=== PATIENT | female | born 1965 | race Two or more races ===

== ENCOUNTER 2021-01-14 17:05 | Inpatient (IN) | payer BC, SELFPAY ==
--- NOTE | ~2021-01-14 | US_ITS ---
EXAMINATION: US PELVIS, LIMITED CLINICAL INFORMATION: Evaluate pelvic swelling/cellulitis. COMPARISON: CT pelvis 01/14/2021. TECHNIQUE: Real-time sonography performed of the right labial region FINDINGS: Significant swelling is seen in the right labia with a masslike region measuring 2.8 x 2.6 x 2.7 cm. Some complex fluid is developing within this area of swelling without a well-circumscribed collection at this time. Increased color Doppler flow is seen within the inflamed soft tissues. US/US pelvic limited IMPRESSION: Swelling with masslike region in the right labia. There is likely a early developing abscess collection within this region. A well-circumscribed collection is not demonstrated at this time.
--- NOTE | ~2021-01-14 | CT_ITS ---
EXAMINATION: CT PELVIS WITH CONTRAST CLINICAL INFORMATION: Abscess over mons. Evaluate for extent COMPARISON: None TECHNIQUE: Helical scanning was performed with submillimeter collimation through the pelvis with the use of oral contrast and during bolus intravenous injection of 100 mL of Omnipaque 350 intravenous contrast. Sagittal and coronal multiplanar 2-D reconstructions were obtained. This CT examination was performed using dose optimization techniques as appropriate, variously including the following: *Automated exposure control *Adjustment of mA and/or kV according to patient size (this includes techniques or standardized protocols for targeted exams where dose is matched to indication/reason for exam; i.e. extremities or head) *Use of iterative reconstruction technique DLP: 376 mGy-cm FINDINGS: PELVIS: There is no intra-pelvic mass. The anteroverted uterus is unremarkable with normal appearance to the bilateral adnexa. Bladder is also unremarkable. There are prominent bilateral left greater than right external iliac nodes seen measuring up to 1.3 cm on the left with prominent left greater than right inguinal lymph nodes as well. Main finding of note is significant soft tissue swelling and overlying skin thickening in the region of the right mons. Milder skin thickening is seen in the adjacent left skin surface although the epicenter this is in the right mons/periclitoral region. I do not appreciate any soft tissue gas. The central lower attenuation region measures 4.4 x 3.1 cm in size in the axial images. This appears be more phlegmonous in nature rather than a discrete drainable collection. There is ill-defined margin and stranding in the adjacent soft tissues. OSSEOUS STRUCTURES: No acute bony abnormality. CT/CT pelvis w IV con IMPRESSION: Focal decreased attenuation region in the soft tissues of the right mons/periclitoral region likely representing phlegmon/early abscess. I do not appreciate it discrete drainable collection within this area of focal inflammation suggesting this is more phlegmonous in nature although clinical correlation would be helpful. There is overlying skin thickening and reactive changes in the adjacent fat likely representing secondary inflammatory and reactive changes. Clinical correlation recommended.
[2021-01-14 17:09] VITALS: BP 143/68; PULSE 125; RESP 18; TEMP 37.9; O2SAT 97; BMI 34.7
[2021-01-14] MEDS: Acetaminophen 325 MG TABLET 650 MG PO (17:15)
[2021-01-14 19:39] VITALS: BP 154/67; PULSE 125; RESP 16; TEMP 36.7
--- NOTE | 2021-01-14 19:56 | ED_ITS ---
HPI - Skin/Abscess/Foreign Bdy General Chief complaint: Skin/Abscess/Foreign Body <FAUSTO Abrams Last Filed: 01/14/21 21:34> Stated complaint: cyst <Elizabeth Landry NP - Last Filed: 01/14/21 21:34> Time Seen by Provider: 01/14/21 19:36 <Elizabeth Landry NP - Last Filed: 01/14/21 21:34> Source: patient <FAUSTO Abrams Last Filed: 01/14/21 21:34> Mode of arrival: ambulatory <FAUSTO Abrams Last Filed: 01/14/21 21:34> Limitations: no limitations <FAUSTO Abrams Last Filed: 01/14/21 21:34> History of Present Illness HPI narrative: 55-year-old female with swelling to the right groin x3 days. No fevers or chills. Blood sugars have been running well controlled. No other complaints <FAUSTO Abrams Last Filed: 01/14/21 21:34> Related Data Home medications: Home Medications Medication Instructions Recorded Confirmed atorvastatin 1 tab PO BEDTIME 01/14/21 01/14/21 glipizide 1 tab PO BID 01/14/21 01/14/21 metformin 1 tab PO DAILY@1400 01/14/21 01/14/21 <FAUSTO Abrams Last Filed: 01/14/21 21:34> Allergies/Adverse reactions: Allergies Allergy/AdvReac Type Severity Reaction Status Date / Time seafood Allergy Shakiness Verified 01/14/21 19:47 <FAUSTO Abrams Last Filed: 01/14/21 21:34> Review of Systems Review of Systems: Yes all other systems are reviewed and are negative <FAUSTO Abrams Last Filed: 01/14/21 21:34> Constitutional: Constitutional: Reports no additional constitutional complaints, Denies body ache(s), Denies chills, Denies fever(s), Denies headache(s) and Denies weakness <FAUSTO Abrams Last Filed: 01/14/21 21:34> Eyes: Eyes: Reports no additional eye complaints and Denies change in vision <Elizabeth Landry NP - Last Filed: 01/14/21 21:34> ENT: Reports system reviewed and no additional complaints, except as documented, Denies dizziness, Denies headache(s), Denies nasal congestion, Denies nasal discharge and Denies neck pain <Elizabeth Landry NP - Last Filed: 01/14/21 21:34> Cardiovascular: Cardiovascular: Reports no additional cardiovascular complaints, Denies chest pain, Denies leg edema and Denies dyspnea <Elizabeth Landry NP - Last Filed: 01/14/21 21:34> Respiratory: Respiratory: Reports no additional respiratory complaints, Denies cough and Denies dyspnea <Elizabeth Landry NP - Last Filed: 01/14/21 21:34> Gastrointestinal: Gastrointestinal: Reports no additional gastrointestinal complaints, Denies abdominal pain, Denies diarrhea, Denies nausea and Denies vomiting <Elizabeth Landry NP - Last Filed: 01/14/21 21:34> Genitourinary: Genitourinary: Reports no additional female genitourinary co mplaints and Denies urinary incontinence <Elizabeth Landry NP - Last Filed: 01/14/21 21:34> Musculoskeletal: Musculoskeletal: Reports no additional musculoskeletal complaints, Denies back pain, Denies arthralgias, Denies joint swelling, Denies neck pain, Denies numbness and Denies tingling <Elizabeth Landry NP - Last Filed: 01/14/21 21:34> Integumentary/Breasts: Skin/Breast: Reports system reviewed and no additional complaints, except as docu, Reports swelling, Reports erythema and Denies rash <Elizabeth Landry NP - Last Filed: 01/14/21 21:34> Neurologic: Reports system reviewed and no additional complaints, except as documented, Denies Abnormal speech present, Denies dizziness, Denies he adache(s), Denies numbness, Denies tingling and Denies weakness <Elizabeth Landry NP - Last Filed: 01/14/21 21:34> PMFSH Past Medical History Attestation statement: The following information was validated with the patient. <Elizabeth Landry NP - Last Filed: 01/14/21 21:34> Source: old records reviewed and nursing notes reviewed <Elizabeth Landry NP - Last Filed: 01/14/21 21:34> Medical History: Medical History Diabetes <Elizabeth Landry NP - Last Filed: 01/14/21 21:34> Social History Social History: Social History Advance Directives: No Advance Directives Information Provided: Yes <Elizabeth Landry NP - Last Filed: 01/14/21 21:34> Physical Exam Vital Signs: Vital Signs: Last Vital Signs Temp 98.2 F 01/14/21 21:54 Pulse 94 01/14/21 21:54 Resp 16 01/14/21 21:54 BP 116/66 01/14/21 21:54 Pulse Ox 97 01/14/21 21:54 Body Mass Index 34.7 <Elizabeth Landry NP - Last Filed: 01/14/21 21:34> Vital Signs: Last Vital Signs Temp 98.2 F 01/14/21 21:54 Pulse 94 01/14/21 21:54 Resp 16 01/14/21 21:54 BP 116/66 01/14/21 21:54 Pulse Ox 97 01/14/21 21:54 Body Mass Index 34.7 <Macarena Urias MD - Last Filed: 01/14/21 23:00> Const: General: cooperative, healthy appearing, comfortable and no acute distress <Elizabeth Landry NP - Last Filed: 01/14/21 21:34> Orientation/consciousness: patient oriented x3 <Elizabeth Landry NP - Last Filed: 01/14/21 21:34> Limitations: no limitations <Elizabeth Landry NP - Last Filed: 01/14/21 21:34> HENMT: Head: Yes normal to inspection <Elizabeth Landry NP - Last Filed: 01/14/21 21:34> Ears: hearing grossly normal bilaterally <Elizabeth Landry MANAGER STATISTICS - Last Filed: 01/14/21 21:34> General nose exam: Normal external nose present <Elizabeth Landry NP - Last Filed: 01/14/21 21:34> Face and sinus: Yes normal facial exam <Elizabeth Landry MANAGER STATISTICS - Last Filed: 01/14/21 21:34> Mouth: Normal oral and palatal mucosa present <Elizabeth Landry MANAGER STATISTICS - Last Filed: 01/14/21 21:34> Throat: Yes posterior oropharynx normal <Elizabeth Landry MANAGER STATISTICS - Last Filed: 01/14/21 21:34> Eyes: General: appearance normal, both eyes and all related structures <Elizabeth Landry MANAGER STATISTICS - Last Filed: 01/14/21 21:34> Pupils: Equal, round and reactive pupils present <Elizabeth Landry NP - Last Filed: 01/14/21 21:34> Neck: Neck: Yes normal visual inspection <Elizabeth Landry MANAGER STATISTICS - Last Filed: 01/14/21 21:34> Chest: Chest palpation & inspection: normal inspection of the chest <Elizabeth Landry NP - Last Filed: 01/14/21 21:34> Resp: Effort & Inspection: normal respiratory effort <Elizabeth Landry MANAGER STATISTICS - Last Filed: 01/14/21 21:34> Auscultation: clear to auscultation bilaterally <Elizabeth Landry MANAGER STATISTICS - Last Filed: 01/14/21 21:34> Cardio: Rate: tachycardic <Elizabeth Landry MANAGER STATISTICS - Last Filed: 01/14/21 21:34> Rhythm: regular rhythm <Elizabeth Landry MANAGER STATISTICS - Last Filed: 01/14/21 21:34> Peripheral pulses: Peripheral pulses 2+ throughout <Elizabeth Landry MANAGER STATISTICS - Last Filed: 01/14/21 21:34> GI: Inspection: Yes normal to inspection <Elizabeth Landry NP - Last Filed: 01/14/21 21:34> Palpation (GI): Soft to palpation and nontender <Elizabeth Landry NP - Last Filed: 01/14/21 21:34> Auscultation: normal bowel sounds <Elizabeth Landry NP - Last Filed: 01/14/21 21:34> Back/Spine/Pelvis: Thoracic/Lumbar Spine: thoracic and lumbar spine normal to inspection <Elizabeth Landry NP - Last Filed: 01/14/21 21:34> Skin: Other: No abdominal pain superior to the site, no thigh pain. No perineal pain/erythema or swelling Above area is erythema, tender and fluctuant <Elizabeth Landry NP - Last Fi led: 01/14/21 21:34> General skin exam: no rashes or lesions noted <Elizabeth Landry NP - Last Filed: 01/14/21 21:34> Neuro: General: patient oriented x3, no focal motor deficits and normal sensation to monofilament <Elizabeth Landry NP - Last Filed: 01/14/21 21:34> Cranial nerves: Yes Equal, round and reactive pupils present <Elizabeth Landry NP - Last Filed: 01/14/21 21:34> Cognition (Neuro): normal cognition <Elizabeth Landry NP - Last Filed: 01/14/21 21:34> Speech: No Abnormal speech present <Elizabeth Landry NP - Last Filed: 01/14/21 21:34> Gait exam (Neuro): Normal gait present <Elizabeth Landry NP - Last Filed: 01/14/21 21:34> Motor exam (neuro): 5/5 motor strength present throughout <Elizabeth Landry NP - Last Filed: 01/14/21 21:34> Extrem: General: Yes normal to inspection <Elizabeth Landry NP - Last Filed: 01/14/21 21:34> Course Course Course Narrative: 55-year-old female with a history of diabetes here with abscess to the right mons pubis which is quite large, fluctuant and tender. Difficult to determine extent of the abscess and so CT A/P will be checked in addition to labs, blood cultures and lactic acid. At this time infection is suspected. Antibiotics ordered. 2100-Glucose 419 with no acidosis or gap. Patient is only on oral medications for her diabetes. Acetone ordered. Additional 1 L of fluid ordered. 5 units of IV insulin ordered. Nursing to recheck POC post fluids, insulin. 213-sign at Dr. Urias pending repeat POC, CT A/P. <Elizabeth Landry NP - Last Filed: 01/14/21 21:34> I discussed the CT scan with the patient. Patient will be admitted by the medicine team. At this time, there is no drainable abscess. Patient already received 1 dose of Zosyn. <Macarena Urias MD - Last Filed: 01/14/21 23:00> MDM - Skin/Abscess/Foreign Bdy Medical Records Attestation: I reviewed the patient's medical records. <Elizabeth Landry NP - Last Filed: 01/14/21 21:34> Lab Data Attestation: I reviewed the patient's lab results. <Elizabeth Landry NP - Last Filed: 01/14/21 21:34> Result diagrams: : 01/14/21 20:11 01/14/21 20:11 <Elizabeth Landry NP - Last Filed: 01/14/21 21:34> Labs: Lab Results 01/14/21 01/14/21 01/14/21 Range/Units 20:09 20:11 20:11 WBC 14.3 H (4.8-10.8) X10*3/uL RBC 4.65 (4.20-5.50) X10*6/uL Hgb 13.1 (12.0-16.0) g/dl Hct 40.2 (37-47) % MCV 86.5 (80-98) fL MCH 28.2 (27.0-33.0) pg MCHC 32.6 (31.0-35.0) g/dl RDW 12.6 (11.0-16.0) % Plt Count 248 (160-400) X10*3/uL MPV 11.5 (9.4-12.3) fL Immature Gran % (Auto) 0.4 (0.0-0.4) % Neut % (Auto) 69.6 (45-73) % Lymph % (Auto) 23.6 (20-40) % Lucas % (Auto) 5.5 (2-11) % Eos % (Auto) 0.6 (0-4) % Baso % (Auto) 0.3 (0-2) % Lymph # (Auto) 3.4 (1.2-4.9) X10*3/uL Lucas # (Auto) 0.8 (0.1-1.2) X10*3/uL Eos # (Auto) 0.1 (0.0-0.4) X10*3/uL Baso # (Auto) 0.0 (0.0-0.2) X10*3/uL Abs Immat Gran (auto) 0.06 H (0.00-0.03) X10*3/uL Absolute Neuts (auto) 10.0 H (2.0-8.3) X10*3/uL Absolute Nucleated RBC 0.000 (0.0-0.012) X10*3/uL Nucleated RBC % (auto) 0.0 (0.0-0.2) /100WBC Hold Blue Top SEE NOTE Sodium (135-145) mmol/L Potassium (3.3-5.1) mmol/L Chloride (96-108) mmol/L Carbon Dioxide (22-29) mmol/L Anion Gap (12-20) BUN (9-16) mg/dL Creatinine (0.5-1.4) mg/dL Estim Creat Clear Calc Estimated GFR POC Glucose (60-115) mg/dL Random Glucose (60-115) mg/dL Lactic Acid 1.3 (0.5-2.0) mmol/L Calcium (8.4-10.2) mg/dL Total Bilirubin (0.0-1.0) mg/dL Direct Bilirubin (0.0-0.5) mg/dL AST (5-31) U/L ALT (0-31) U/L Alkaline Phosphatase (39-117) U/L Total Protein (6.5-8.0) g/dL Albumin (3.5-5.0) g/dL Urine Color Urine Appearance Urine pH (5.0-8.0) Ur Specific Penn (1.005-1.025) Urine Protein (NEG-TRACE) MG/DL Urine Glucose (UA) (NEG) MG/DL Urine Ketones (NEG) MG/DL Urine Blood (NEG) Urine Nitrite (NEG) Ur Leukocyte Esterase (NEG) Urine RBC (0) /HPF Urine WBC (0-4) /HPF Ur Squamous Epith Cells /LPF Urine Bacteria /LPF Acetone, Qual (Negative) COVID-19 ([facility]) (Negative) COVID-19 Clin Com 01/14/21 01/14/21 01/14/21 Range/Units 20:11 21:04 21:23 WBC (4.8-10.8) X10*3/uL RBC (4.20-5.50) X10*6/uL Hgb (12.0-16.0) g/dl Hct (37-47) % MCV (80-98) fL MCH (27.0-33.0) pg MCHC (31.0-35.0) g/dl RDW (11.0-16.0) % Plt Count (160-400) X10*3/uL MPV (9.4-12.3) fL Immature Gran % (Auto) (0.0-0.4) % Neut % (Auto) (45-73) % Lymph % (Auto) (20-40) % Lucas % (Auto) (2-11) % Eos % (Auto) (0-4) % Baso % (Auto) (0-2) % Lymph # (Auto) (1.2-4.9) X10*3/uL Lucas # (Auto) (0.1-1.2) X10*3/uL Eos # (Auto) (0.0-0.4) X10*3/uL Baso # (Auto) (0.0-0.2) X10*3/uL Abs Immat Gran (auto) (0.00-0.03) X10*3/uL Absolute Neuts (auto) (2.0-8.3) X10*3/uL Absolute Nucleated RBC (0.0-0.012) X10*3/uL Nucleated RBC % (auto) (0.0-0.2) /100WBC Hold Blue Top Sodium 133 L (135-145) mmol/L Potassium 4.0 (3.3-5.1) mmol/L Chloride 97 (96-108) mmol/L Carbon Dioxide 26 (22-29) mmol/L Anion Gap 14 (12-20) BUN 12 (9-16) mg/dL Creatinine 0.88 (0.5-1.4) mg/dL Estim Creat Clear Calc 73.5 Estimated GFR > 60 POC Glucose (60-115) mg/dL Random Glucose 419 H* (60-115) mg/dL Lactic Acid (0.5-2.0) mmol/L Calcium 9.2 (8.4-10.2) mg/dL Total Bilirubin 0.3 (0.0-1.0) mg/dL Direct Bilirubin 0.2 (0.0-0.5) mg/dL AST 96 H (5-31) U/L ALT 104 H (0-31) U/L Alkaline Phosphatase 156 H (39-117) U/L Total Protein 7.2 (6.5-8.0) g/dL Albumin 4.1 (3.5-5.0) g/dL Urine Color YELLOW Urine Appearance CLEAR Urine pH 6.0 (5.0-8.0) Ur Specific Penn 1.015 (1.005-1.025) Urine Protein NEG (NEG-TRACE) MG/DL Urine Glucose (UA) >=1000 H (NEG) MG/DL Urine Ketones 5 (NEG) MG/DL Urine Blood NEG (NEG) Urine Nitrite NEG (NEG) Ur Leukocyte Esterase NEG (NEG) Urine RBC 1-4 (0) /HPF Urine WBC 1-4 (0-4) /HPF Ur Squamous Epith Cells 1+ /LPF Urine Bacteria 1+ /LPF Acetone, Qual Negative (Negative) COVID-19 ([facility]) (Negative) COVID-19 Clin Com 01/14/21 01/14/21 Range/Units 21:23 22:42 WBC (4.8-10.8) X10*3/uL RBC (4.20-5.50) X10*6/uL Hgb (12.0-16.0) g/dl Hct (37-47) % MCV (80-98) fL MCH (27.0-33.0) pg MCHC (31.0-35.0) g/dl RDW (11.0-16.0) % Plt Count (160-400) X10*3/uL MPV (9.4-12.3) fL Immature Gran % (Auto) (0.0-0.4) % Neut % (Auto) (45-73) % Lymph % (Auto) (20-40) % Lucas % (Auto) (2-11) % Eos % (Auto) (0-4) % Baso % (Auto) (0-2) % Lymph # (Auto) (1.2-4.9) X10*3/uL Lucas # (Auto) (0.1-1.2) X10*3/uL Eos # (Auto) (0.0-0.4) X10*3/uL Baso # (Auto) (0.0-0.2) X10*3/uL Abs Immat Gran (auto) (0.00-0.03) X10*3/uL Absolute Neuts (auto) (2.0-8.3) X10*3/uL Absolute Nucleated RBC (0.0-0.012) X10*3/uL Nucleated RBC % (auto) (0.0-0.2) /100WBC Hold Blue Top Sodium (135-145) mmol/L Potassium (3.3-5.1) mmol/L Chloride (96-108) mmol/L Carbon Dioxide (22-29) mmol/L Anion Gap (12-20) BUN (9-16) mg/dL Creatinine (0.5-1.4) mg/dL Estim Creat Clear Calc Estimated GFR POC Glucose 217 H (60-115) mg/dL Random Glucose (60-115) mg/dL Lactic Acid (0.5-2.0) mmol/L Calcium (8.4-10.2) mg/dL Total Bilirubin (0.0-1.0) mg/dL Direct Bilirubin (0.0-0.5) mg/dL AST (5-31) U/L ALT (0-31) U/L Alkaline Phosphatase (39-117) U/L Total Protein (6.5-8.0) g/dL Albumin (3.5-5.0) g/dL Urine Color Urine Appearance Urine pH (5.0-8.0) Ur Specific Penn (1.005-1.025) Urine Protein (NEG-TRACE) MG/DL Urine Glucose (UA) (NEG) MG/DL Urine Ketones (NEG) MG/DL Urine Blood (NEG) Urine Nitrite (NEG) Ur Leukocyte Esterase (NEG) Urine RBC (0) /HPF Urine WBC (0-4) /HPF Ur Squamous Epith Cells /LPF Urine Bacteria /LPF Acetone, Qual (Negative) COVID-19 ([facility]) Negative (Negative) COVID-19 Clin Com See Note <Elizabeth Frantz, MANAGER STATISTICS - Last Filed: 01/14/21 21:34> Lab Results 01/14/21 01/14/21 01/14/21 Range/Units 20:09 20:11 20:11 WBC 14.3 H (4.8-10.8) X10*3/uL RBC 4.65 (4.20-5.50) X10*6/uL Hgb 13.1 (12.0-16.0) g/dl Hct 40.2 (37-47) % MCV 86.5 (80-98) fL MCH 28.2 (27.0-33.0) pg MCHC 32.6 (31.0-35.0) g/dl RDW 12.6 (11.0-16.0) % Plt Count 248 (160-400) X10*3/uL MPV 11.5 (9.4-12.3) fL Immature Gran % (Auto) 0.4 (0.0-0.4) % Neut % (Auto) 69.6 (45-73) % Lymph % (Auto) 23.6 (20-40) % Lucas % (Auto) 5.5 (2-11) % Eos % (Auto) 0.6 (0-4) % Baso % (Auto) 0.3 (0-2) % Lymph # (Auto) 3.4 (1.2-4.9) X10*3/uL Lucas # (Auto) 0.8 (0.1-1.2) X10*3/uL Eos # (Auto) 0.1 (0.0-0.4) X10*3/uL Baso # (Auto) 0.0 (0.0-0.2) X10*3/uL Abs Immat Gran (auto) 0.06 H (0.00-0.03) X10*3/uL Absolute Neuts (auto) 10.0 H (2.0-8.3) X10*3/uL Absolute Nucleated RBC 0.000 (0.0-0.012) X10*3/uL Nucleated RBC % (auto) 0.0 (0.0-0.2) /100WBC Hold Blue Top SEE NOTE Sodium (135-145) mmol/L Potassium (3.3-5.1) mmol/L Chloride (96-108) mmol/L Carbon Dioxide (22-29) mmol/L Anion Gap (12-20) BUN (9-16) mg/dL Creatinine (0.5-1.4) mg/dL Estim Creat Clear Calc Estimated GFR POC Glucose (60-115) mg/dL Random Glucose (60-115) mg/dL Lactic Acid 1.3 (0.5-2.0) mmol/L Calcium (8.4-10.2) mg/dL Total Bilirubin (0.0-1.0) mg/dL Direct Bilirubin (0.0-0.5) mg/dL AST (5-31) U/L ALT (0-31) U/L Alkaline Phosphatase (39-117) U/L Total Protein (6.5-8.0) g/dL Albumin (3.5-5.0) g/dL Urine Color Urine Appearance Urine pH (5.0-8.0) Ur Specific Penn (1.005-1.025) Urine Protein (NEG-TRACE) MG/DL Urine Glucose (UA) (NEG) MG/DL Urine Ketones (NEG) MG/DL Urine Blood (NEG) Urine Nitrite (NEG) Ur Leukocyte Esterase (NEG) Urine RBC (0) /HPF Urine WBC (0-4) /HPF Ur Squamous Epith Cells /LPF Urine Bacteria /LPF Acetone, Qual (Negative) COVID-19 ([facility]) (Negative) COVID-19 Clin Com 01/14/21 01/14/21 01/14/21 Range/Units 20:11 21:04 21:23 WBC (4.8-10.8) X10*3/uL RBC (4.20-5.50) X10*6/uL Hgb (12.0-16.0) g/dl Hct (37-47) % MCV (80-98) fL MCH (27.0-33.0) pg MCHC (31.0-35.0) g/dl RDW (11.0-16.0) % Plt Count (160-400) X10*3/uL MPV (9.4-12.3) fL Immature Gran % (Auto) (0.0-0.4) % Neut % (Auto) (45-73) % Lymph % (Auto) (20-40) % Lucas % (Auto) (2-11) % Eos % (Auto) (0-4) % Baso % (Auto) (0-2) % Lymph # (Auto) (1.2-4.9) X10*3/uL Lucas # (Auto) (0.1-1.2) X10*3/uL Eos # (Auto) (0.0-0.4) X10*3/uL Baso # (Auto) (0.0-0.2) X10*3/uL Abs Immat Gran (auto) (0.00-0.03) X10*3/uL Absolute Neuts (auto) (2.0-8.3) X10*3/uL Absolute Nucleated RBC (0.0-0.012) X10*3/uL Nucleated RBC % (auto) (0.0-0.2) /100WBC Hold Blue Top Sodium 133 L (135-145) mmol/L Potassium 4.0 (3.3-5.1) mmol/L Chloride 97 (96-108) mmol/L Carbon Dioxide 26 (22-29) mmol/L Anion Gap 14 (12-20) BUN 12 (9-16) mg/dL Creatinine 0.88 (0.5-1.4) mg/dL Estim Creat Clear Calc 73.5 Estimated GFR > 60 POC Glucose (60-115) mg/dL Random Glucose 419 H* (60-115) mg/dL Lactic Acid (0.5-2.0) mmol/L Calcium 9.2 (8.4-10.2) mg/dL Total Bilirubin 0.3 (0.0-1.0) mg/dL Direct Bilirubin 0.2 (0.0-0.5) mg/dL AST 96 H (5-31) U/L ALT 104 H (0-31) U/L Alkaline Phosphatase 156 H (39-117) U/L Total Protein 7.2 (6.5-8.0) g/dL Albumin 4.1 (3.5-5.0) g/dL Urine Color YELLOW Urine Appearance CLEAR Urine pH 6.0 (5.0-8.0) Ur Specific Penn 1.015 (1.005-1.025) Urine Protein NEG (NEG-TRACE) MG/DL Urine Glucose (UA) >=1000 H (NEG) MG/DL Urine Ketones 5 (NEG) MG/DL Urine Blood NEG (NEG) Urine Nitrite NEG (NEG) Ur Leukocyte Esterase NEG (NEG) Urine RBC 1-4 (0) /HPF Urine WBC 1-4 (0-4) /HPF Ur Squamous Epith Cells 1+ /LPF Urine Bacteria 1+ /LPF Acetone, Qual Negative (Negative) COVID-19 ([facility]) (Negative) COVID-19 Clin Com 01/14/21 01/14/21 Range/Units 21:23 22:42 WBC (4.8-10.8) X10*3/uL RBC (4.20-5.50) X10*6/uL Hgb (12.0-16.0) g/dl Hct (37-47) % MCV (80-98) fL MCH (27.0-33.0) pg MCHC (31.0-35.0) g/dl RDW (11.0-16.0) % Plt Count (160-400) X10*3/uL MPV (9.4-12.3) fL Immature Gran % (Auto) (0.0-0.4) % Neut % (Auto) (45-73) % Lymph % (Auto) (20-40) % Lucas % (Auto) (2-11) % Eos % (Auto) (0-4) % Baso % (Auto) (0-2) % Lymph # (Auto) (1.2-4.9) X10*3/uL Lucas # (Auto) (0.1-1.2) X10*3/uL Eos # (Auto) (0.0-0.4) X10*3/uL Baso # (Auto) (0.0-0.2) X10*3/uL Abs Immat Gran (auto) (0.00-0.03) X10*3/uL Absolute Neuts (auto) (2.0-8.3) X10*3/uL Absolute Nucleated RBC (0.0-0.012) X10*3/uL Nucleated RBC % (auto) (0.0-0.2) /100WBC Hold Blue Top Sodium (135-145) mmol/L Potassium (3.3-5.1) mmol/L Chloride (96-108) mmol/L Carbon Dioxide (22-29) mmol/L Anion Gap (12-20) BUN (9-16) mg/dL Creatinine (0.5-1.4) mg/dL Estim Creat Clear Calc Estimated GFR POC Glucose 217 H (60-115) mg/dL Random Glucose (60-115) mg/dL Lactic Acid (0.5-2.0) mmol/L Calcium (8.4-10.2) mg/dL Total Bilirubin (0.0-1.0) mg/dL Direct Bilirubin (0.0-0.5) mg/dL AST (5-31) U/L ALT (0-31) U/L Alkaline Phosphatase (39-117) U/L Total Protein (6.5-8.0) g/dL Albumin (3.5-5.0) g/dL Urine Color Urine Appearance Urine pH (5.0-8.0) Ur Specific [place] (1.005-1.025) Urine Protein (NEG-TRACE) MG/DL Urine Glucose (UA) (NEG) MG/DL Urine Ketones (NEG) MG/DL Urine Blood (NEG) Urine Nitrite (NEG) Ur Leukocyte Esterase (NEG) Urine RBC (0) /HPF Urine WBC (0-4) /HPF Ur Squamous Epith Cells /LPF Urine Bacteria /LPF Acetone, Qual (Negative) COVID-19 ([facility]) Negative (Negative) COVID-19 Clin Com See Note <Macarena Urias MD - Last Filed: 01/14/21 23:00> Imaging Data CT of the pelvis: Radiologist's impression: FINDINGS: PELVIS: There is no intra-pelvic mass. The anteroverted uterus is unremarkable with normal appearance to the bilateral adnexa. Bladder is also unremarkable. There are prominent bilateral left greater than right external iliac nodes seen measuring up to 1.3 cm on the left with prominent left greater than right inguinal lymph nodes as well. Main finding of note is significant soft tissue swelling and overlying skin thickening in the region of the right mons. Milder skin thickening is seen in the adjacent left skin surface although the epicenter this is in the right mons/periclitoral region. I do not appreciate any soft tissue gas. The central lower attenuation region measures 4.4 x 3.1 cm in size in the axial images. This appears be more phlegmonous in nature rather than a discrete drainable collection. There is ill-defined margin and stranding in the adjacent soft tissues. OSSEOUS STRUCTURES: No acute bony abnormality. CT/CT pelvis w con IMPRESSION: Focal decreased attenuation region in the soft tissues of the right mons/periclitoral region likely representing phlegmon/early abscess. I do not appreciate it discrete drainable collection within this area of focal inflammation suggesting this is more phlegmonous in nature although clinical correlation would be helpful. There is overlying skin thickening and reactive changes in the adjacent fat likely representing secondary inflammatory and reactive changes. Clinical correlation recommended. <Macarena Urias MD - Last Filed: 01/14/21 23:00> Discharge Plan Discharge Clinical Impression: Phlegmon <Elizabeth Landry NP - Last Filed: 01/14/21 21:34> Patient Disposition: Admitted As Inpatient <Elizabeth Landry NP - Last Filed: 01/14/21 21:34> Prescriptions: No Action atorvastatin 40 mg tablet 1 tab PO BEDTIME RF: 0 metformin 500 mg tablet 1 tab PO DAILY@1400 RF: 0 glipizide 10 mg tablet 1 tab PO BID RF: 0 <Elizabeth Landry NP - Last Filed: 01/14/21 21:34>
[2021-01-14 20:24] LABS: MANUAL DIFF FLAG NO
[2021-01-14 20:26] LABS: Basophils Percent Auto 0.3 % (0-2); Eosinophils Absolute Auto 0.1 X10*3/uL (0.0-0.4); Eosinophils Percent Auto 0.6 % (0-4); Hematocrit 40.2 % (37-47); Hemoglobin 13.1 g/dl (12.0-16.0); Imm Gran Abs Auto 0.06 X10*3/uL (0.00-0.03); Imm Gran Pct Auto 0.4 % (0.0-0.4); Lymphocytes Absolute Auto 3.4 X10*3/uL (1.2-4.9); Lymphocytes Percent Auto 23.6 % (20-40); Mean Corpuscular HGB Conc 32.6 g/dl (31.0-35.0); Mean Corpuscular Hemoglobin 28.2 pg (27.0-33.0); Mean Corpuscular Volume 86.5 fL (80-98); Mean Platelet Volume 11.5 fL (9.4-12.3); Monocytes Absolute Auto 0.8 X10*3/uL (0.1-1.2); Monocytes Percent Auto 5.5 % (2-11); Neutrophils Percent Auto 69.6 % (45-73); Platelet Count 248 X10*3/uL (160-400); Red Blood Count 4.65 X10*6/uL (4.20-5.50); Red Cell Distribution Width 12.6 % (11.0-16.0); White Blood Count 14.3 X10*3/uL (4.8-10.8)
[2021-01-14] MEDS: Ketorolac Tromethamine 30 MG/ML VIAL IVPUSH (20:26)
[2021-01-14 20:43] LABS: Lactic Acid 1.3 mmol/L (0.5-2.0)
--- NOTE | 2021-01-14 20:49 | PC.NURSE ---
PT STILL HAS UPPER WHEEZE AFTER BREATHING TREATMENT DR RAMÍREZ AWARE OF BS AND ORDERED INSULIN AND IV FLUIDS.
[2021-01-14] MEDS: 0.9 % Sodium Chloride 1,000 ML 999 ML IV ×2 (20:56→23:16)
[2021-01-14] MEDS: Piperacillin Sodium/Tazobactam 3.375 GM in 0.9 % Sodium Chloride 50 ML IV (20:56)
[2021-01-14 21:11] LABS: Alanine Aminotransferase 104 U/L (0-31); Albumin Level 4.1 g/dL (3.5-5.0); Alkaline Phosphatase 156 U/L (39-117); Anion Gap 14 (12-20); Aspartate Amino Transferase 96 U/L (5-31); Bilirubin Direct 0.2 mg/dL (0.0-0.5); Bilirubin Total 0.3 mg/dL (0.0-1.0); Blood Urea Nitrogen 12 mg/dL (9-16); Calcium 9.2 mg/dL (8.4-10.2); Carbon Dioxide 26 mmol/L (22-29); Chloride 97 mmol/L (96-108); Creatinine Clr Calc Pharmacy 73.5; Estimated Glomerular Filt Rate > 60; Glucose Random 419 mg/dL (60-115); Sodium 133 mmol/L (135-145); Total Protein 7.2 g/dL (6.5-8.0)
[2021-01-14 21:14] LABS: Glucose Urine UA >=1000 MG/DL (NEG); Leukocyte Esterase Urine NEG (NEG); Nitrite Urine NEG (NEG); Specific Gravity - Urine 1.015 (1.005-1.025); Urine Blood NEG (NEG); Urine Ketones 5 MG/DL (NEG); Urine Protein NEG (NEG-TRACE)
[2021-01-14 21:22] LABS: Appearance Urine CLEAR; Color Urine YELLOW
[2021-01-14] MEDS: Insulin Regular, Human 100 UNIT/ML 3 ML VIAL IVPUSH (21:27)
[2021-01-14 21:28] LABS: Bacteria Urine 1+ /LPF; Squamous Epithelial Cell Urine 1+ /LPF
[2021-01-14 21:45] LABS: COVID-19 Test Negative (Negative)
[2021-01-14 21:51] LABS: Acetone, serum QL Negative (Negative)
[2021-01-14 21:54] VITALS: BP 116/66; PULSE 94; RESP 16; TEMP 36.8; O2SAT 97
[2021-01-14] MEDS: iohexoL 350 MG/ML 100 ML INFUS..BTL IV (22:21)
[2021-01-14 22:47] LABS: Glucose, Whole Blood 217 mg/dL (60-115)
--- NOTE | 2021-01-14 23:21 | PC.NURSE ---
DR RAMÍREZ AWARE OF BS OF 217. NO ORDER AT THIS TIME.
[2021-01-15] VITALS (8 sets, daily range): BP systolic 106–162; BP diastolic 56–76; PULSE 82–103; RESP 18–20; TEMP 36.1–37.6; O2SAT 96–100
[2021-01-15] MEDS: 0.9 % Sodium Chloride Flush 3 ML SYRINGE IVFLUSH ×3 (03:27→16:42)
[2021-01-15] MEDS: Piperacillin Sodium/Tazobactam 3.375 GM in 0.9 % Sodium Chloride 50 ML IV ×3 (03:27→20:00)
[2021-01-15 04:58] LABS: MANUAL DIFF FLAG NO
[2021-01-15 05:08] LABS: Basophils Absolute Auto 0.1 X10*3/uL (0.0-0.2); Basophils Percent Auto 0.4 % (0-2); Eosinophils Absolute Auto 0.2 X10*3/uL (0.0-0.4); Eosinophils Percent Auto 1.2 % (0-4); Hematocrit 41.6 % (37-47); Hemoglobin 13.3 g/dl (12.0-16.0); Imm Gran Abs Auto 0.05 X10*3/uL (0.00-0.03); Imm Gran Pct Auto 0.4 % (0.0-0.4); Lymphocytes Absolute Auto 3.3 X10*3/uL (1.2-4.9); Mean Corpuscular Hemoglobin 28.3 pg (27.0-33.0); Mean Corpuscular Volume 88.5 fL (80-98); Mean Platelet Volume 11.8 fL (9.4-12.3); Monocytes Percent Auto 7.5 % (2-11); Neutrophils Absolute Auto 9.2 X10*3/uL (2.0-8.3); Neutrophils Percent Auto 66.5 % (45-73); Platelet Count 226 X10*3/uL (160-400); Red Cell Distribution Width 12.5 % (11.0-16.0); White Blood Count 13.8 X10*3/uL (4.8-10.8)
[2021-01-15 05:28] LABS: Anion Gap 16 (12-20); Blood Urea Nitrogen 9 mg/dL (9-16); Calcium 8.4 mg/dL (8.4-10.2); Carbon Dioxide 20 mmol/L (22-29); Chloride 104 mmol/L (96-108); Creatinine Clr Calc Pharmacy 102.8; Estimated Glomerular Filt Rate > 60; Glucose Random 239 mg/dL (60-115); Sodium 136 mmol/L (135-145)
[2021-01-15 07:08] LABS: Glucose, Whole Blood 254 mg/dL (60-115)
--- NOTE | 2021-01-15 08:05 | P.HPHOSP_ITS ---
History of Present Illness Date of Service: 01/14/21 Chief Complaint: Lump this is a 55 yo F with pmhx of DM presents to the hospital with lump on the groin region. reports that she noticed a lump about 1 day prior to presentation but today, suddenyl grew large and had 20/10 pain. No drainage, no fever or chills. No urinary symptoms. she shaves that area and had a similar incident in the past. pt denies any headache, change in vision, no chest pain, no abdominal pain, n/v, no diarrhea or constipation. No lower extremity edema, no weakness or numbness. On arrival, HDS with temp of 100.3, HR of 125, RR of 18, BP of 143/68, and sating 97% of RA Labs are significant for WBC for 13.8, AST of 96, ALT of 104, Alk Phosph of 156, UA negative CT of pelvis shows focal decreased attenuation region in the soft tissue of the right mons/periclitoral region likely representing phlegmon/early abscess. No discrete drainable collection. pmhx as below and confirmed w pt Review of Systems Review of Systems: Yes all other systems are reviewed and are negative [facility] Medical History Diabetes Social History Household Members: Family Housing: House Do you presently have visiting nurse or other home services: No Smoking Status: Never smoker Second Hand Smoke Exposure: No Use of substances other than those prescribed or required for medical reasons: No Any prior treatment program specific to substance use: No Have you been hit, kicked, punched, or otherwise hurt by someone within the past year? If so, by whom?: No Do you feel safe in your current relationship?: Yes Is there a partner from a previous relationship who is making you feel unsafe now?: No Are you made to feel afraid or neglected: No Advance Directives: No Advance Directives Information Provided: Yes Do you have thoughts of harming others: None Recently lost weight without trying: Yes How much weight loss: 34pounds or more Eating poorly because of decreased appetite: No Nutrition screen score: 6 Nutrition Risks: No Nutritional Risk Patient : No : No Poor oral hygiene: No Meds Allergies Allergy/AdvReac Type Severity Reaction Status Date / Time seafood Allergy Shakiness Verified 01/14/21 19:47 Active Medications: Current Medications Generic Name Dose Route Start Last Admin Trade Name Altaf PRN Reason Stop Dose Admin Acetaminophen 650 mg 01/15/21 01:26 Acetaminophen 325 Mg Tablet PO Q6H PRN Pain, Mild (Pain Scale 1-3) Atorvastatin Calcium 40 mg 01/15/21 21:00 Atorvastatin Calcium 40 Mg Tablet PO BEDTIME [facility] Docusate Sodium 100 mg 01/15/21 01:26 Docusate Sodium 100 Mg Capsule PO DAILY PRN Constipation Piperacillin Sod/Tazobactam 50 mls @ 100 mls/hr 01/15/21 12:00 Sod 3.375 gm/ Sodium Chloride IV Q6H [facility] Insulin Human Lispro 0 unit 01/15/21 07:30 Insulin Lispro 100 Unit/Ml 3 Ml Vial SUBCUT QIDACHS [facility] Protocol Ondansetron HCl 4 mg 01/15/21 01:26 Ondansetron Hcl 4 Mg/2 Ml Vial IVPUSH Q8H PRN Nausea and Vomiting Pharmacy Consult 1 each 01/14/21 21:14 Consult Rx Perform Med Rec MISCELLANE ONCE PRN Consult order Pharmacy Consult 1 each 01/14/21 21:31 Consult Rx Perform Med Rec MISCELLANE ONCE PRN Consult order Sodium Chloride 3 ml 01/15/21 01:26 01/15/21 07:48 0.9 % Sodium Chloride Flush 3 Ml Syringe IVFLUSH 3 ml [facility] Administration Home Medications Medication Instructions Recorded Confirmed Last Taken Type atorvastatin 1 tab PO BEDTIME 01/14/21 01/14/21 01/13/21 History glipizide 1 tab PO BID 01/14/21 01/14/21 01/13/21 History metformin 1 tab PO DAILY@1400 01/14/21 01/14/21 01/13/21 History Physical Exam Vital Signs and Narrative: Vital Signs: Last Vital Signs Temp 97.3 F 01/15/21 07:28 Pulse 97 01/15/21 07:28 Resp 20 01/15/21 07:28 BP 140/69 H 01/15/21 07:28 Pulse Ox 99 01/15/21 07:28 Body Mass Index 34.7 Const: General: cooperative and no acute distress Orientation/consciousness: patient oriented x3 Eyes: General: appearance normal, both eyes and all related structures Resp: Effort & Inspection: normal respiratory effort Auscultation: clear to auscultation bilaterally Cardio: Rate: regular rate Rhythm: regular rhythm GI: Palpation (GI): Soft to palpation Auscultation: normal bowel sounds : Other: large lump in the suprapubic region, no draiange, tender, firm Skin: General skin exam: no rashes or lesions noted Neuro: General: patient oriented x3 Cognition (Neuro): normal cognition Extrem: General: Yes normal to inspection and Yes no pedal edema Results Labs CBC and Chem 7: 01/15/21 04:06 01/15/21 04:06 Labs: Laboratory Results - last 24 hr 01/14/21 01/14/21 01/14/21 20:09 20:11 20:11 MCV 86.5 MCH 28.2 MCHC 32.6 RDW 12.6 Plt Count 248 MPV 11.5 Immature Gran % (Auto) 0.4 Neut % (Auto) 69.6 Lymph % (Auto) 23.6 [place] % (Auto) 5.5 Eos % (Auto) 0.6 Baso % (Auto) 0.3 Lymph # (Auto) 3.4 [place] # (Auto) 0.8 Eos # (Auto) 0.1 Baso # (Auto) 0.0 Abs Immat Gran (auto) 0.06 H Absolute Neuts (auto) 10.0 H Absolute Nucleated RBC 0.000 Nucleated RBC % (auto) 0.0 Hold Blue Top SEE NOTE Anion Gap Estim Creat Clear Calc Estimated GFR POC Glucose Random Glucose Lactic Acid 1.3 Calcium Total Bilirubin Direct Bilirubin AST ALT Alkaline Phosphatase Total Protein Albumin Urine Color Urine Appearance Urine pH Ur Specific [place] Urine Protein Urine Glucose (UA) Urine Ketones Urine Blood Urine Nitrite Ur Leukocyte Esterase Urine RBC Urine WBC Ur Squamous Epith Cells Urine Bacteria Acetone, Qual COVID-19 ([facility]) COVID-19 Clin Com 01/14/21 01/14/21 01/14/21 20:11 21:04 21:23 MCV MCH MCHC RDW Plt Count MPV Immature Gran % (Auto) Neut % (Auto) Lymph % (Auto) [place] % (Auto) Eos % (Auto) Baso % (Auto) Lymph # (Auto) [place] # (Auto) Eos # (Auto) Baso # (Auto) Abs Immat Gran (auto) Absolute Neuts (auto) Absolute Nucleated RBC Nucleated RBC % (auto) Hold Blue Top Anion Gap 14 Estim Creat Clear Calc 73.5 Estimated GFR > 60 POC Glucose Random Glucose 419 H* Lactic Acid Calcium 9.2 Total Bilirubin 0.3 Direct Bilirubin 0.2 AST 96 H ALT 104 H Alkaline Phosphatase 156 H Total Protein 7.2 Albumin 4.1 Urine Color YELLOW Urine Appearance CLEAR Urine pH 6.0 Ur Specific [place] 1.015 Urine Protein NEG Urine Glucose (UA) >=1000 H Urine Ketones 5 Urine Blood NEG Urine Nitrite NEG Ur Leukocyte Esterase NEG Urine RBC 1-4 Urine WBC 1-4 Ur Squamous Epith Cells 1+ Urine Bacteria 1+ Acetone, Qual Negative COVID-19 ([facility]) COVID-19 Clin Com 01/14/21 01/14/21 01/15/21 21:23 22:42 04:06 MCV 88.5 MCH 28.3 MCHC 32.0 RDW 12.5 Plt Count 226 MPV 11.8 Immature Gran % (Auto) 0.4 Neut % (Auto) 66.5 Lymph % (Auto) 24.0 Imperial % (Auto) 7.5 Eos % (Auto) 1.2 Baso % (Auto) 0.4 Lymph # (Auto) 3.3 [place] # (Auto) 1.0 Eos # (Auto) 0.2 Baso # (Auto) 0.1 Abs Immat Gran (auto) 0.05 H Absolute Neuts (auto) 9.2 H Absolute Nucleated RBC 0.000 Nucleated RBC % (auto) 0.0 Hold Blue Top Anion Gap Estim Creat Clear Calc Estimated GFR POC Glucose 217 H Random Glucose Lactic Acid Calcium Total Bilirubin Direct Bilirubin AST ALT Alkaline Phosphatase Total Protein Albumin Urine Color Urine Appearance Urine pH Ur Specific [place] Urine Protein Urine Glucose (UA) Urine Ketones Urine Blood Urine Nitrite Ur Leukocyte Esterase Urine RBC Urine WBC Ur Squamous Epith Cells Urine Bacteria Acetone, Qual COVID-19 ([facility]) Negative COVID-19 Clin Com See Note 01/15/21 01/15/21 04:06 06:52 MCV MCH MCHC RDW Plt Count MPV Immature Gran % (Auto) Neut % (Auto) Lymph % (Auto) [place] % (Auto) Eos % (Auto) Baso % (Auto) Lymph # (Auto) [place] # (Auto) Eos # (Auto) Baso # (Auto) Abs Immat Gran (auto) Absolute Neuts (auto) Absolute Nucleated RBC Nucleated RBC % (auto) Hold Blue Top Anion Gap 16 Estim Creat Clear Calc 102.8 Estimated GFR > 60 POC Glucose 254 H Random Glucose 239 H D Lactic Acid Calcium 8.4 D Total Bilirubin Direct Bilirubin AST ALT Alkaline Phosphatase Total Protein Albumin Urine Color Urine Appearance Urine pH Ur Specific [place] Urine Protein Urine Glucose (UA) Urine Ketones Urine Blood Urine Nitrite Ur Leukocyte Esterase Urine RBC Urine WBC Ur Squamous Epith Cells Urine Bacteria Acetone, Qual COVID-19 ([facility]) COVID-19 Clin Com Imaging Radiologist's Impressions: Impressions Pelvis CT 01/14/21 19:47 IMPRESSION: Focal decreased attenuation region in the soft tissues of the right mons/periclitoral region likely representing phlegmon/early abscess. I do not appreciate it discrete drainable collection within this area of focal inflammation suggesting this is more phlegmonous in nature although clinical correlation would be helpful. There is overlying skin thickening and reactive changes in the adjacent fat likely representing secondary inflammatory and reactive changes. Clinical correlation recommended. Assessment and Plan (1) Phlegmon: Status: Acute 55 yo F with hx of diabetes presents with compains fo suprapubic lump # Phlegmon - has leukocytosis, tachycardia and fever - Pelvic CT shows evidence of phlegmon with no drainable collection - will treat with IV antibiotics - consult general surgery # DM - will start her on LDSSI - Diabetic diet Dvt PPX: early ambulation, incase of surgical intervention
--- NOTE | 2021-01-15 08:05 | P.CONGS_ITS ---
History of Present Illness Consult details Consult date: 01/15/21 Requesting physician: Tesfaye Mendosa Narrative: 55-year-old female patient with history of diabetes mellitus presenting with complaints of pain in the pubic area which began as a small spot on the right side approximately 4 days ago. She initially applied warm compresses to the location but noted the area of swelling to have increased. In addition the pain became markedly worse to a level of 22/10. She subsequently presented to the emergency department and was noted to have large area of pubic swelling suggestive of an underlying abscess. CT of the pelvis was obtained which did not reveal a definite drainable abscess. Surgical consultation was requested for possible drainage of an abscess. Overnight she was placed on antibiotics and does feel improved. Her pain is now 7/10. She denies any other symptoms. Review of Systems Review of Systems: Yes all other systems are reviewed and are negative Constitutional: Constitutional: Denies chills, Denies fever(s) and Denies poor appetite Cardiovascular: Cardiovascular: Denies chest pain, Denies irregular heart rhythm, Denies palpitations and Denies dyspnea Respiratory: Respiratory: Denies cough, Denies pain with cough, Denies dyspnea and Denies wheezing Gastrointestinal: Gastrointestinal: Reports as per HPI, Denies abdominal pain, Denies change in stool character, Denies nausea and Denies vomiting Genitourinary: Genitourinary: Reports no additional female genitourinary complaints Endocrine: Endocrine: Denies palpitations Hematologic/Lymphatic: Hematologic/Lymphatic: Denies lymphadenopathy Allergic/Immunologic: Allergic/Immunologic: Denies wheezing PMF Past Medical History Medical History Diabetes Social History Social History Household Members: Family Housing: House Do you presently have visiting nurse or other home services: No Smoking Status: Never smoker Second Hand Smoke Exposure: No Use of substances other than those prescribed or required for medical reasons: No Any prior treatment program specific to substance use: No Have you been hit, kicked, punched, or otherwise hurt by someone within the past year? If so, by whom?: No Do you feel safe in your current relationship?: Yes Is there a partner from a previous relationship who is making you feel unsafe now?: No Are you made to feel afraid or neglected: No Advance Directives: No Advance Directives Information Provided: Yes Do you have thoughts of harming others: None Recently lost weight without trying: Yes How much weight loss: 34pounds or more Eating poorly because of decreased appetite: No Nutrition screen score: 6 Nutrition Risks: No Nutritional Risk Patient : No : No Poor oral hygiene: No Meds Allergies Allergy/AdvReac Type Severity Reaction Status Date / Time seafood Allergy Shakiness Verified 01/14/21 19:47 Active Medications: Current Medications Generic Name Dose Route Start Last Admin Trade Name Freq PRN Reason Stop Dose Admin Acetaminophen 650 mg 01/15/21 01:26 Acetaminophen 325 Mg Tablet PO Q6H PRN Pain, Mild (Pain Scale 1-3) Atorvastatin Calcium 40 mg 01/15/21 21:00 Atorvastatin Calcium 40 Mg Tablet PO BEDTIME [facility] Docusate Sodium 100 mg 01/15/21 01:26 Docusate Sodium 100 Mg Capsule PO DAILY PRN Constipation Piperacillin Sod/Tazobactam 50 mls @ 100 mls/hr 01/15/21 12:00 Sod 3.375 gm/ Sodium Chloride IV Q6H [facility] Insulin Human Lispro 0 unit 01/15/21 07:30 Insulin Lispro 100 Unit/Ml 3 Ml Vial SUBCUT QIDACHS [facility] Protocol Ondansetron HCl 4 mg 01/15/21 01:26 Ondansetron Hcl 4 Mg/2 Ml Vial IVPUSH Q8H PRN Nausea and Vomiting Pharmacy Consult 1 each 01/14/21 21:14 Consult Rx Perform Med Rec MISCELLANE ONCE PRN Consult order Pharmacy Consult 1 each 01/14/21 21:31 Consult Rx Perform Med Rec MISCELLANE ONCE PRN Consult order Sodium Chloride 3 ml 01/15/21 01:26 01/15/21 07:48 0.9 % Sodium Chloride Flush 3 Ml Syringe IVFLUSH 3 ml [facility] Administration Home Medications Medication Instructions Recorded Confirmed Last Taken Type atorvastatin 1 tab PO BEDTIME 01/14/21 01/14/21 01/13/21 History glipizide 1 tab PO BID 01/14/21 01/14/21 01/13/21 History metformin 1 tab PO DAILY@1400 01/14/21 01/14/21 01/13/21 History Physical Exam Vital Signs: Vital Signs: Last Vital Signs Temp 97.3 F 01/15/21 07:28 Pulse 97 01/15/21 07:28 Resp 20 01/15/21 07:28 BP 140/69 H 01/15/21 07:28 Pulse Ox 99 01/15/21 07:28 Body Mass Index 34.7 Const: General: cooperative, comfortable, well developed, alert and awake Neck: Neck: Yes normal visual inspection, Yes full ROM and Yes no JVD Resp: Effort & Inspection: normal respiratory effort, no audible wheezes, no cough, no stridor and not tachypneic Cardio: Jugular venous distension: no JVD GI: Inspection: Yes normal to inspection Palpation (GI): Soft to palpation, nontender, no guarding and not rigid Abdomen image: 1. Area of swelling with 1 crusted area in the central portion suggestive of a folliculitis. Area is firm but not fluctuant, suggestive of a phlegmon. No definite drainable abscess is appreciated. No skin necrosis is noted. Skin: General skin exam: no rashes or lesions noted Lesions: lesion noted (As noted above in abdomen) Extrem: General: Yes no clubbing, cyanosis or edema Results Labs Result diagrams: 01/15/21 04:06 01/15/21 04:06 Labs: Abnormal lab results 01/14/21 01/14/21 01/14/21 Range/Units 20:11 20:11 21:04 WBC 14.3 H (4.8-10.8) X10*3/uL Abs Immat Gran (auto) 0.06 H (0.00-0.03) X10*3/uL Absolute Neuts (auto) 10.0 H (2.0-8.3) X10*3/uL Sodium 133 L (135-145) mmol/L Carbon Dioxide (22-29) mmol/L POC Glucose (60-115) mg/dL Random Glucose 419 H* (60-115) mg/dL AST 96 H (5-31) U/L ALT 104 H (0-31) U/L Alkaline Phosphatase 156 H (39-117) U/L Urine Glucose (UA) >=1000 H (NEG) MG/DL 01/14/21 01/15/21 01/15/21 Range/Units 22:42 04:06 04:06 WBC 13.8 H (4.8-10.8) X10*3/uL Abs Immat Gran (auto) 0.05 H (0.00-0.03) X10*3/uL Absolute Neuts (auto) 9.2 H (2.0-8.3) X10*3/uL Sodium (135-145) mmol/L Carbon Dioxide 20 L (22-29) mmol/L POC Glucose 217 H (60-115) mg/dL Random Glucose 239 H D (60-115) mg/dL AST (5-31) U/L ALT (0-31) U/L Alkaline Phosphatase (39-117) U/L Urine Glucose (UA) (NEG) MG/DL 01/15/21 Range/Units 06:52 WBC (4.8-10.8) X10*3/uL Abs Immat Gran (auto) (0.00-0.03) X10*3/uL Absolute Neuts (auto) (2.0-8.3) X10*3/uL Sodium (135-145) mmol/L Carbon Dioxide (22-29) mmol/L POC Glucose 254 H (60-115) mg/dL Random Glucose (60-115) mg/dL AST (5-31) U/L ALT (0-31) U/L Alkaline Phosphatase (39-117) U/L Urine Glucose (UA) (NEG) MG/DL Short CBC 01/14/21 01/15/21 Range/Units 20:11 04:06 WBC 14.3 H 13.8 H (4.8-10.8) X10*3/uL Hgb 13.1 13.3 (12.0-16.0) g/dl Hct 40.2 41.6 (37-47) % Plt Count 248 226 (160-400) X10*3/uL BMP 01/14/21 01/15/21 20:11 04:06 Sodium 133 L 136 Potassium 4.0 4.0 Chloride 97 104 Carbon Dioxide 26 20 L BUN 12 9 Creatinine 0.88 0.63 Calcium 9.2 8.4 D Liver Function 01/14/21 Range/Units 20:11 Total Bilirubin 0.3 (0.0-1.0) mg/dL Direct Bilirubin 0.2 (0.0-0.5) mg/dL AST 96 H (5-31) U/L ALT 104 H (0-31) U/L Alkaline Phosphatase 156 H (39-117) U/L Albumin 4.1 (3.5-5.0) g/dL Urine 01/14/21 Range/Units 21:04 Urine Color YELLOW Urine Appearance CLEAR Urine pH 6.0 (5.0-8.0) Ur Specific [place] 1.015 (1.005-1.025) Urine Protein NEG (NEG-TRACE) MG/DL Urine Glucose (UA) >=1000 H (NEG) MG/DL All other labs normal. Assessment and Plan (1) Phlegmon: Status: Acute 55-year-old female patient with history of diabetes mellitus presenting with phlegmon of the pubic skin possibly related to underlying folliculitis. Area is firm but not fluctuant suggestive of a phlegmon rather than abscess. Lesion could develop into an abscess in certainly bears watching. There is no evidence of skin necrosis at this time to indicate a necrotizing infection. Will continue to monitor along with you. Procedures Date of Service Date of Service: 01/15/21
[2021-01-15] MEDS: Insulin Lispro 100 UNIT/ML 3 ML VIAL SUBCUT ×4 (08:16→21:09)
--- NOTE | 2021-01-15 08:50 | P.CDIC_ITS ---
CDI Concurrent Query Service Date: 01/15/21 Documentation Clarification: Please clarify if you are treating a proba ble/suspected/likely or confirmed: Sepsis, present on admission No Sepsis PLEASE DO NOT DELETE/MODIFY EXISTING CONTENT Additional information is needed in order to code to the highest accuracy and appropriate Severity of Illness (SOI). Please clarify the information noted below in your progress notes and discharge summary. Risk Factors/Clinical Indicators/Treatments 55 year old female admitted with Phlegmon Folliculitis pubic skin, no definite drainable abscess as per surgery consult T 100.3, P 94-125, R 16, BP 116/66, SAT 97% WBC 14.3 LA 1.3 Treated with IV antibiotic CDS: Kelly Sky RN Contact Number: [phone] Please Review the information above and exercise your independent professional judgment in responding to the query. If you concur, pleas document in the PROGRESS NOTES and DISCHARGE SUMMARY. If you do not agree with the query, please document in the query above. THIS QUERY IS PART OF THE PERMANENT MEDICAL RECORD
--- NOTE | 2021-01-15 09:31 | MHC.CM.PN ---
Addendum entered by Elaine Whitehead 01/15/21 09:46: NEW HCP COMPLETED Original Note: CM MET WITH PT WHO REPORTS SHE LIVES WITH HER MOTHER AND FATHER AND IS INDEPENDENT WITH CARE AND MOBILITY. PT REPORTS SHE ONLY USES A [employer] FOR MEDICAL EQUIPMENT. PT CONFIRMS PCP LISTED, MANPREET WYLIE, [facility]. PT WILL COMPLETE A NEW HCP TODAY NAMING HER SISTER, ALFREDO FREEMAN ([phone]) HER AGENT. CURRENT DC PLAN IS HOME WITH NO SERVICES PTS CAR IS IN THE LOT
[2021-01-15 11:08] LABS: Glucose, Whole Blood 232 mg/dL (60-115)
[2021-01-15] MEDS: Doxycycline Hyclate 100 MG in 0.9 % Sodium Chloride 250 ML 166.67 MG IV (12:03)
[2021-01-15] MEDS: Acetaminophen 325 MG TABLET 650 MG PO ×2 (12:12→20:06)
--- NOTE | 2021-01-15 12:54 | HO.PM.IMPN ---
Subjective Subjective Date of Service: 01/15/21 Interval History: Seen in follow up for cellulitis Denies fever, chills No complaints this morning Review of Systems Review of Systems: Yes all other systems are reviewed and are negative Constitutional Constitutional: Denies chills and Denies fever(s) Cardiovascular Cardiovascular: Denies chest pain Respiratory Respiratory: Denies cough Gastrointestinal Gastrointestinal: Denies abdominal pain Physical Exam Vital Signs: Vital Signs: Last Vital Signs Temp 97.2 F 01/15/21 11:16 Pulse 96 01/15/21 11:16 Resp 20 01/15/21 11:16 BP 144/67 H 01/15/21 11:16 Pulse Ox 98 01/15/21 11:16 Body Mass Index 34.7 Const: General: cooperative, healthy appearing, comfortable, alert and awake Nutritional Appearance: well nourished and overweight Orientation/consciousness: patient oriented x3 HENMT: Head: Yes normocephalic and Yes atraumatic Eyes: Sclerae: sclerae normal Resp: Effort & Inspection: normal respiratory effort and no respiratory distress Auscultation: clear to auscultation bilaterally Cardio: Rate: regular rate Rhythm: regular rhythm GI: Palpation (GI): Soft to palpation and nontender Skin: Other: Right mons pubis with swelling, no significant erythema. Area induration, no fluctuance no drainage Neuro: General: patient oriented x3 Cranial nerves: Yes CN's II-XII intact bilaterally and Yes Bilaterally intact EOM present Objective Data Current Medications Generic Name Dose Route Start Last Admin Trade Name Freq PRN Reason Stop Dose Admin Acetaminophen 650 mg 01/15/21 01:26 01/15/21 12:12 Acetaminophen 325 Mg Tablet PO 650 mg Q6H PRN Administration Pain, Mild (Pain Scale 1-3) Atorvastatin Calcium 40 mg 01/15/21 21:00 Atorvastatin Calcium 40 Mg Tablet PO BEDTIME [facility] Docusate Sodium 100 mg 01/15/21 01:26 Docusate Sodium 100 Mg Capsule PO DAILY PRN Constipation Piperacillin Sod/Tazobactam 50 mls @ 100 mls/hr 01/15/21 12:00 Sod 3.375 gm/ Sodium Chloride IV Q6H [facility] Doxycycline Hyclate 100 mg/ 250 mls @ 166.67 mls/hr 01/15/21 10:45 01/15/21 12:03 Sodium Chloride IV 166.67 mls/hr Q12H [facility] Administration Insulin Human Lispro 0 unit 01/15/21 07:30 01/15/21 12:03 Insulin Lispro 100 Unit/Ml 3 Ml Vial SUBCUT 4 unit QIDACHS [facility] Administration Protocol Ondansetron HCl 4 mg 01/15/21 01:26 Ondansetron Hcl 4 Mg/2 Ml Vial IVPUSH Q8H PRN Nausea and Vomiting Pharmacy Consult 1 each 01/14/21 21:14 Consult Rx Perform Med Rec MISCELLANE ONCE PRN Consult order Pharmacy Consult 1 each 01/14/21 21:31 Consult Rx Perform Med Rec MISCELLANE ONCE PRN Consult order Sodium Chloride 3 ml 01/15/21 01:26 01/15/21 07:48 0.9 % Sodium Chloride Flush 3 Ml Syringe IVFLUSH 3 ml QSHIFT [facility] Administration Labs CBC & Chem 7: 01/15/21 04:06 01/15/21 04:06 Assessment and Plan (1) Phlegmon: Status: Acute Assessment and Plan: 55 yo F with hx of diabetes presents with compaints of suprapubic lump found to have phlegmon Sepsis secondary to cellulitis/Phlegmon mons pubis Pelvic CT shows evidence of phlegmon with no drainable collection Initially met sepsis with tachycardia, leukocytosis. Lactic acid within normal limits, no severe features. Leukocytosis trending down -continue Zosyn, add doxycycline -seen by surgery, no fluid collection for drainage at this time -BCx pending DM - SSI, POCs - Diabetic diet -glipizide, metformin on hold Hyperlipidemia -continue atorvastatin Dvt PPX: early ambulation, boots Attending-Dr. Mendosa
[2021-01-15 16:11] LABS: Glucose, Whole Blood 215 mg/dL (60-115)
[2021-01-15] MEDS: Atorvastatin Calcium 40 MG TABLET PO (20:05)
[2021-01-15 20:56] LABS: Glucose, Whole Blood 249 mg/dL (60-115)
[2021-01-16] MEDS: Doxycycline Hyclate 100 MG in 0.9 % Sodium Chloride 250 ML IV (00:31)
[2021-01-16] MEDS: 0.9 % Sodium Chloride Flush 3 ML SYRINGE IVFLUSH ×4 (00:34→22:00)
[2021-01-16] MEDS: Piperacillin Sodium/Tazobactam 3.375 GM in 0.9 % Sodium Chloride 50 ML IV ×4 (02:08→17:09)
[2021-01-16 03:56] VITALS: BP 114/53; PULSE 101; RESP 18; TEMP 37.1; O2SAT 96
[2021-01-16 06:40] LABS: Hematocrit 39.5 % (37-47); Hemoglobin 12.4 g/dl (12.0-16.0); Mean Corpuscular HGB Conc 31.4 g/dl (31.0-35.0); Mean Corpuscular Hemoglobin 27.4 pg (27.0-33.0); Mean Corpuscular Volume 87.4 fL (80-98); Mean Platelet Volume 11.9 fL (9.4-12.3); Platelet Count 255 X10*3/uL (160-400); Red Blood Count 4.52 X10*6/uL (4.20-5.50); Red Cell Distribution Width 12.7 % (11.0-16.0); White Blood Count 13.3 X10*3/uL (4.8-10.8)
[2021-01-16 07:25] LABS: Glucose, Whole Blood 266 mg/dL (60-115)
[2021-01-16 07:36] VITALS: BP 125/58; PULSE 97; RESP 20; TEMP 36.2; O2SAT 97
[2021-01-16] MEDS: Insulin Lispro 100 UNIT/ML 3 ML VIAL SUBCUT ×4 (07:57→22:00)
[2021-01-16] MEDS: Doxycycline Hyclate 100 MG in 0.9 % Sodium Chloride 250 ML 166.67 MG IV ×2 (10:46→22:00)
[2021-01-16 12:00] VITALS: BP 144/68; PULSE 93; RESP 20; TEMP 36.6; O2SAT 98
--- NOTE | 2021-01-16 12:01 | MHC.CM.PN ---
per rounds today pt likely to be dcd tomorrow plan rem,anis home no servceis
--- NOTE | 2021-01-16 12:40 | HO.PM.IMPN ---
Subjective Subjective Date of Service: 01/16/21 Interval History: Seen and examined this morning in follow-up for right mons pubis phlegmon Episode of chills overnight, no other overnight events Review of Systems Review of Systems: Yes all other systems are reviewed and are negative Constitutional Constitutional: Denies fever(s) Cardiovascular Cardiovascular: Denies chest pain Respiratory Respiratory: Denies cough Gastrointestinal Gastrointestinal: Denies abdominal pain Physical Exam Vital Signs: Vital Signs: Last Vital Signs Temp 97.8 F 01/16/21 12:00 Pulse 93 01/16/21 12:00 Resp 20 01/16/21 12:00 BP 144/68 H 01/16/21 12:00 Pulse Ox 98 01/16/21 12:00 Body Mass Index 34.7 Const: General: cooperative, healthy appearing, comfortable, alert and awake Nutritional Appearance: well nourished and overweight Orientation/consciousness: patient oriented x3 HENMT: Head: Yes normocephalic and Yes atraumatic Eyes: Sclerae: sclerae normal Resp: Effort & Inspection: normal respiratory effort and no respiratory distress Auscultation: clear to auscultation bilaterally Cardio: Rate: regular rate Rhythm: regular rhythm GI: Palpation (GI): Soft to palpation and nontender Skin: Other: Right mons pubis with swelling, no significant erythema. Area induration, no fluctuance no drainage Neuro: General: patient oriented x3 Cranial nerves: Yes CN's II-XII intact bilaterally and Yes Bilaterally intact EOM present Objective Data Current Medications Generic Name Dose Route Start Last Admin Trade Name Freq PRN Reason Stop Dose Admin Acetaminophen 650 mg 01/15/21 01:26 01/15/21 20:06 Acetaminophen 325 Mg Tablet PO 650 mg Q6H PRN Administration Pain, Mild (Pain Scale 1-3) Atorvastatin Calcium 40 mg 01/15/21 21:00 01/15/21 20:05 Atorvastatin Calcium 40 Mg Tablet PO 40 mg BEDTIME [facility] Administration Docusate Sodium 100 mg 01/15/21 01:26 Docusate Sodium 100 Mg Capsule PO DAILY PRN Constipation Piperacillin Sod/Tazobactam 50 mls @ 100 mls/hr 01/15/21 12:00 01/16/21 12:21 Sod 3.375 gm/ Sodium Chloride IV 100 mls/hr Q6H [facility] Administration Doxycycline Hyclate 100 mg/ 250 mls @ 166.67 mls/hr 01/15/21 10:45 01/16/21 12:21 Sodium Chloride IV Infused Q12H [facility] Infusion Insulin Human Lispro 0 unit 01/15/21 07:30 01/16/21 11:57 Insulin Lispro 100 Unit/Ml 3 Ml Vial SUBCUT 4 unit QIDACHS [facility] Administration Protocol Ondansetron HCl 4 mg 01/15/21 01:26 Ondansetron Hcl 4 Mg/2 Ml Vial IVPUSH Q8H PRN Nausea and Vomiting Pharmacy Consult 1 each 01/14/21 21:14 Consult Rx Perform Med Rec MISCELLANE ONCE PRN Consult order Pharmacy Consult 1 each 01/14/21 21:31 Consult Rx Perform Med Rec MISCELLANE ONCE PRN Consult order Sodium Chloride 3 ml 01/15/21 01:26 01/16/21 07:58 0.9 % Sodium Chloride Flush 3 Ml Syringe IVFLUSH 3 ml QSHIFT [facility] Administration Labs CBC & Chem 7: 01/16/21 05:11 01/15/21 04:06 Microbiology Microbiology Results: Microbiology 01/14/21 20:17 Blood - Venous Blood Culture - Preliminary No growth after 24 hours. 01/14/21 20:08 Blood - Venous Blood Culture - Preliminary No growth after 24 hours. Assessment and Plan (1) Phlegmon: Status: Acute Assessment and Plan: 55 yo F with hx of diabetes presents with compaints of suprapubic lump found to have phlegmon Sepsis secondary to cellulitis/Phlegmon mons pubis Pelvic CT shows evidence of phlegmon with no drainable collection Initially met sepsis with tachycardia, leukocytosis. Lactic acid within normal limits, no severe features. Leukocytosis trending down Still with significant swelling/induration -continue Zosyn, doxycycline -seen by surgery, no fluid collection for drainage -BCx negative times 24 hours DM - SSI, POCs - Diabetic diet - glipizide, metformin on hold Hyperlipidemia -continue atorvastatin Dvt PPX: early ambulation, boots Attending-Dr. Mendosa
[2021-01-16 12:42] LABS: Glucose, Whole Blood 219 mg/dL (60-115)
--- NOTE | 2021-01-16 13:20 | P.PNGS_ITS ---
Subjective Subjective Date of Service: 01/16/21 Interval history: Patient reports feeling improved with decreased pain in the pubis. Site is cracking still operator with palpation. Physical Exam Vital Signs: Vital Signs: Last Vital Signs Temp 97.8 F 01/16/21 12:00 Pulse 93 01/16/21 12:00 Resp 20 01/16/21 12:00 BP 144/68 H 01/16/21 12:00 Pulse Ox 98 01/16/21 12:00 Body Mass Index 34.7 Const: General: cooperative, healthy appearing, comfortable and no acute distress Resp: Effort & Inspection: normal respiratory effort Skin: Other: Skin of pubis remains inflamed, tender to palpation now more localized below the area of folliculitis. No fluctuance is palpable and erythema is resolved. No necrotic skin. Extrem: General: Yes no pedal edema Progress Note: A&P Assessment and plan (1) Phlegmon: Status: Acute Assessment and Plan: Symptomatic leak patient is improved and on examination the area of inflammation appears to be subsiding but not gone. An area of inflammation remains which is non fluctuant. Will continue to monitor. Patient continues on Zosyn and doxycycline. Fall Risk Details Current Medications: Current Medications Generic Name Dose Route Start Last Admin Trade Name Freq PRN Reason Stop Dose Admin Acetaminophen 650 mg 01/15/21 01:26 01/15/21 20:06 Acetaminophen 325 Mg Tablet PO 650 mg Q6H PRN Administration Pain, Mild (Pain Scale 1-3) Atorvastatin Calcium 40 mg 01/15/21 21:00 01/15/21 20:05 Atorvastatin Calcium 40 Mg Tablet PO 40 mg BEDTIME [facility] Administration Docusate Sodium 100 mg 01/15/21 01:26 Docusate Sodium 100 Mg Capsule PO DAILY PRN Constipation Piperacillin Sod/Tazobactam 50 mls @ 100 mls/hr 01/15/21 12:00 01/16/21 12:21 Sod 3.375 gm/ Sodium Chloride IV 100 mls/hr Q6H [facility] Administration Doxycycline Hyclate 100 mg/ 250 mls @ 166.67 mls/hr 01/15/21 10:45 01/16/21 12:21 Sodium Chloride IV Infused Q12H [facility] Infusion Insulin Human Lispro 0 unit 01/15/21 07:30 01/16/21 11:57 Insulin Lispro 100 Unit/Ml 3 Ml Vial SUBCUT 4 unit QIDACHS [facility] Administration Protocol Ondansetron HCl 4 mg 01/15/21 01:26 Ondansetron Hcl 4 Mg/2 Ml Vial IVPUSH Q8H PRN Nausea and Vomiting Pharmacy Consult 1 each 01/14/21 21:14 Consult Rx Perform Med Rec MISCELLANE ONCE PRN Consult order Pharmacy Consult 1 each 01/14/21 21:31 Consult Rx Perform Med Rec MISCELLANE ONCE PRN Consult order Sodium Chloride 3 ml 01/15/21 01:26 01/16/21 07:58 0.9 % Sodium Chloride Flush 3 Ml Syringe IVFLUSH 3 ml QSHIFT [facility] Administration Time Spent With Patient Time: Total time spent is greater than 50% in coordination of care (as documented) at patient's floor/unit and/or counseling patient: Time with patient: 15 - 24 minutes Procedures Date of Service Date of Service: 01/16/21
[2021-01-16 15:54] VITALS: BP 169/80; PULSE 106; RESP 18; TEMP 36.4; O2SAT 100
[2021-01-16 16:32] LABS: Glucose, Whole Blood 359 mg/dL (60-115)
[2021-01-16 19:24] VITALS: BP 109/59; PULSE 97; RESP 18; TEMP 36.4; O2SAT 98
[2021-01-16 21:03] LABS: Glucose, Whole Blood 258 mg/dL (60-115)
[2021-01-16] MEDS: Atorvastatin Calcium 40 MG TABLET PO (22:00)
[2021-01-16 23:53] VITALS: BP 104/72; PULSE 89; RESP 18; TEMP 37.2; O2SAT 99
[2021-01-17] MEDS: Piperacillin Sodium/Tazobactam 3.375 GM in 0.9 % Sodium Chloride 50 ML IV ×5 (02:27→23:23)
[2021-01-17 03:14] VITALS: BP 139/68; PULSE 94; RESP 18; TEMP 36.6; O2SAT 97
[2021-01-17] MEDS: Acetaminophen 325 MG TABLET 650 MG PO ×2 (05:47→14:03)
[2021-01-17 07:37] LABS: Glucose, Whole Blood 236 mg/dL (60-115)
[2021-01-17] MEDS: Insulin Lispro 100 UNIT/ML 3 ML VIAL SUBCUT ×4 (07:43→21:17)
[2021-01-17] MEDS: 0.9 % Sodium Chloride Flush 3 ML SYRINGE IVFLUSH ×3 (07:44→21:17)
[2021-01-17 07:47] VITALS: BP 131/64; PULSE 107; RESP 18; TEMP 36.7; O2SAT 98
[2021-01-17] MEDS: Doxycycline Hyclate 100 MG in 0.9 % Sodium Chloride 250 ML 166.67 MG IV ×2 (10:53→21:17)
[2021-01-17 11:25] LABS: Glucose, Whole Blood 298 mg/dL (60-115)
[2021-01-17 12:00] VITALS: BP 142/71; PULSE 91; RESP 18; TEMP 36.3; O2SAT 97
[2021-01-17 15:15] VITALS: BP 143/70; PULSE 92; RESP 20; TEMP 37.3; O2SAT 97
--- NOTE | 2021-01-17 15:47 | HO.PM.IMPN ---
Subjective Subjective Date of Service: 01/17/21 Interval History: follow-up for right mons pubis phlegmon Review of Systems Patient still has significant swelling in the right side specially groin area has any theme a but more tenderness than erythema. Denies any nausea or vomiting or abdominal pain or fever or chills Physical Exam Vital Signs: Vital Signs: Last Vital Signs Temp 99.2 F 01/17/21 15:15 Pulse 92 01/17/21 15:15 Resp 20 01/17/21 15:15 BP 143/70 H 01/17/21 15:15 Pulse Ox 97 01/17/21 15:15 Body Mass Index 34.7 Physical exam: Constitutional: Not in acute distress cvs: rrr, [id number] , no murmur res: clear to auscultation ,no rhonchii or wheezing abd: no rebound or guarding ,nt, bs present. ext pulses present , no cyanosis neuro: axo3 , nonfocal Objective Data Current Medications Generic Name Dose Route Start Last Admin Trade Name Freq PRN Reason Stop Dose Admin Acetaminophen 650 mg 01/15/21 01:26 01/17/21 14:03 Acetaminophen 325 Mg Tablet PO 650 mg Q6H PRN Administration Pain, Mild (Pain Scale 1-3) Atorvastatin Calcium 40 mg 01/15/21 21:00 01/16/21 22:00 Atorvastatin Calcium 40 Mg Tablet PO 40 mg BEDTIME [facility] Administration Docusate Sodium 100 mg 01/15/21 01:26 Docusate Sodium 100 Mg Capsule PO DAILY PRN Constipation Piperacillin Sod/Tazobactam 50 mls @ 100 mls/hr 01/15/21 12:00 01/17/21 13:05 Sod 3.375 gm/ Sodium Chloride IV Infused Q6H [facility] Infusion Doxycycline Hyclate 100 mg/ 250 mls @ 166.67 mls/hr 01/15/21 10:45 01/17/21 12:26 Sodium Chloride IV Infused Q12H [facility] Infusion Insulin Human Lispro 0 unit 01/15/21 07:30 01/17/21 11:30 Insulin Lispro 100 Unit/Ml 3 Ml Vial SUBCUT 6 unit QIDACHS [facility] Administration Protocol Ondansetron HCl 4 mg 01/15/21 01:26 Ondansetron Hcl 4 Mg/2 Ml Vial IVPUSH Q8H PRN Nausea and Vomiting Pharmacy Consult 1 each 01/14/21 21:14 Consult Rx Perform Med Rec MISCELLANE ONCE PRN Consult order Pharmacy Consult 1 each 01/14/21 21:31 Consult Rx Perform Med Rec MISCELLANE ONCE PRN Consult order Sodium Chloride 3 ml 01/15/21 01:26 01/17/21 15:31 0.9 % Sodium Chloride Flush 3 Ml Syringe IVFLUSH 3 ml QSHIFT [facility] Administration Labs CBC & Chem 7: 01/16/21 05:11 01/15/21 04:06 Microbiology Microbiology Results: Microbiology 01/14/21 20:17 Blood - Venous Blood Culture - Preliminary No growth after 48 hours. 01/14/21 20:08 Blood - Venous Blood Culture - Preliminary No growth after 48 hours. Assessment and Plan (1) Phlegmon: Status: Acute Assessment and Plan: 55 yo F with hx of diabetes presents with compaints of suprapubic lump found to have phlegmon 1.Sepsis secondary to cellulitis/Phlegmon mons pubis Pelvic CT shows evidence of phlegmon with no drainable collection Initially met sepsis with tachycardia, leukocytosis. Lactic acid within normal limits, no severe features. Leukocytosis trending down Still with significant swelling/induration -continue Zosyn, doxycycline -seen by surgery, no fluid collection for drainage, we will add soft tissue ultrasound , -BCx negative times 24 hours 2.DM - SSI, POCs - Diabetic diet - glipizide, metformin on hold 3.Hyperlipidemia -continue atorvastatin
[2021-01-17 16:18] LABS: Glucose, Whole Blood 242 mg/dL (60-115)
--- NOTE | 2021-01-17 18:31 | P.PNGS_ITS ---
Subjective Subjective Date of Service: 01/17/21 Interval history: This the same amount of discomfort around mons pubis and same amount of firmness. She says that the nurses have told her that the area is not as red. Physical Exam Vital Signs: Vital Signs: Last Vital Signs Temp 99.2 F 01/17/21 15:15 Pulse 92 01/17/21 15:15 Resp 20 01/17/21 15:15 BP 143/70 H 01/17/21 15:15 Pulse Ox 97 01/17/21 15:15 Body Mass Index 34.7 Laboratory Results - last 24 hr 01/16/21 01/17/21 01/17/21 20:58 07:27 11:13 POC Glucose 258 H 236 H 298 H 01/17/21 16:08 POC Glucose 242 H Swelling with masslike region in the right labia. There is likely a early developing abscess collection within this region. A well-circumscribed collection is not demonstrated at this time. Const: General: cooperative and no acute distress Resp: Effort & Inspection: normal respiratory effort Auscultation: clear to auscultation bilaterally Cardio: Rate: regular rate Rhythm: regular rhythm GI: Other: Soft, nondistended Skin: Other: Mild swelling and prominence skin and soft tissues mons pubis and right labia majora with an area of cutaneous on the right side of the mons me asuring about 3 cm in diameter. Tenderness and induration extend into the superior aspect of the right labia majora. Psych: Affect: normal affect Thought process: Normal thought process present Insight: Good insight present (Psych) Progress Note: A&P Assessment and plan (1) Phlegmon: Status: Acute Assessment and Plan: 55-year-old female with history of diabetes mellitus presenting with painful indurated soft tissues of the mons pubis and right labia majora and findings consistent with soft tissue infection and phlegmon. She does not report symptomatic improvement and continues to run a low-grade fever. Ultrasound today suggests the possibility of developing abscess. I discussed options for further evaluation and management with her including continued antibiotic therapy, aspiration with local anesthesia at the bedside and aspiration under general anesthesia with I&D to be performed if a purulence collection is id entified. She prefers to proceed with aspiration under general anesthesia and I agree that this is an appropriate measure. We reviewed the technique of the procedure and risks of ongoing infection, missed abscess, scarring, bleeding, DVT and PE. Surgery is planned for tomorrow. Reviewed with Dr. Sandhu. Fall Risk Details Current Medications: Current Medications Generic Name Dose Route Start Last Admin Trade Name Freq PRN Reason Stop Dose Admin Acetaminophen 650 mg 01/15/21 01:26 01/17/21 14:03 Acetaminophen 325 Mg Tablet PO 650 mg Q6H PRN Administration Pain, Mild (Pain Scale 1-3) Atorvastatin Calcium 40 mg 01/15/21 21:00 01/16/21 22:00 Atorvastatin Calcium 40 Mg Tablet PO 40 mg BEDTIME [facility] Administration Docusate Sodium 100 mg 01/15/21 01:26 Docusate Sodium 100 Mg Capsule PO DAILY PRN Constipation Piperacillin Sod/Tazobactam 50 mls @ 100 mls/hr 01/15/21 12:00 01/17/21 13:05 Sod 3.375 gm/ Sodium Chloride IV Infused Q6H [facility] Infusion Doxycycline Hyclate 100 mg/ 250 mls @ 166.67 mls/hr 01/15/21 10:45 01/17/21 12:26 Sodium Chloride IV Infused Q12H [facility] Infusion Insulin Human Lispro 0 unit 01/15/21 07:30 01/17/21 16:15 Insulin Lispro 100 Unit/Ml 3 Ml Vial SUBCUT 4 unit QIDACHS [facility] Administration Protocol Ondansetron HCl 4 mg 01/15/21 01:26 Ondansetron Hcl 4 Mg/2 Ml Vial IVPUSH Q8H PRN Nausea and Vomiting Pharmacy Consult 1 each 01/14/21 21:14 Consult Rx Perform Med Rec MISCELLANE ONCE PRN Consult order Pharmacy Consult 1 each 01/14/21 21:31 Consult Rx Perform Med Rec MISCELLANE ONCE PRN Consult order Sodium Chloride 3 ml 01/15/21 01:26 01/17/21 15:31 0.9 % Sodium Chloride Flush 3 Ml Syringe IVFLUSH 3 ml QSHIFT [facility] Administration Time Spent With Patient Time: Total time spent is greater than 50% in coordination of care (as documented) at patient's floor/unit and/or counseling patient: Time with patient: 15 - 24 minutes Procedures Date of Service Date of Service: 01/17/21
[2021-01-17 19:19] VITALS: BP 139/69; PULSE 98; RESP 18; TEMP 37.2; O2SAT 96
[2021-01-17 20:34] LABS: Glucose, Whole Blood 328 mg/dL (60-115)
[2021-01-17] MEDS: Atorvastatin Calcium 40 MG TABLET PO (21:16)
[2021-01-17 23:54] VITALS: BP 135/60; PULSE 98; RESP 18; TEMP 36.6; O2SAT 96
[2021-01-18] VITALS (10 sets, daily range): BP systolic 104–157; BP diastolic 48–83; PULSE 86–102; RESP 15–20; TEMP 36.3–37.4; O2SAT 95–98
[2021-01-18 05:37] LABS: Hematocrit 38.8 % (37-47); Hemoglobin 12.6 g/dl (12.0-16.0); Mean Corpuscular HGB Conc 32.5 g/dl (31.0-35.0); Mean Corpuscular Hemoglobin 28.1 pg (27.0-33.0); Mean Corpuscular Volume 86.4 fL (80-98); Mean Platelet Volume 11.3 fL (9.4-12.3); Platelet Count 308 X10*3/uL (160-400); Red Blood Count 4.49 X10*6/uL (4.20-5.50); Red Cell Distribution Width 12.6 % (11.0-16.0); White Blood Count 10.5 X10*3/uL (4.8-10.8)
[2021-01-18 05:46] LABS: Anion Gap 14 (12-20); Blood Urea Nitrogen 7 mg/dL (9-16); Calcium 8.8 mg/dL (8.4-10.2); Carbon Dioxide 23 mmol/L (22-29); Chloride 103 mmol/L (96-108); Creatinine Clr Calc Pharmacy 104.4; Estimated Glomerular Filt Rate > 60; Glucose Random 264 mg/dL (60-115); Potassium 3.4 mmol/L (3.3-5.1); Sodium 137 mmol/L (135-145)
[2021-01-18] MEDS: Piperacillin Sodium/Tazobactam 3.375 GM in 0.9 % Sodium Chloride 50 ML IV ×2 (06:22→18:06)
[2021-01-18] MEDS: 0.9 % Sodium Chloride Flush 3 ML SYRINGE IVFLUSH ×2 (07:18→16:17)
[2021-01-18] MEDS: Insulin Lispro 100 UNIT/ML 3 ML VIAL SUBCUT ×3 (07:23→20:50)
[2021-01-18 08:06] LABS: Glucose, Whole Blood 254 mg/dL (60-115)
[2021-01-18] MEDS: Doxycycline Hyclate 100 MG in 0.9 % Sodium Chloride 250 ML 166.67 MG IV ×2 (10:37→23:01)
[2021-01-18 11:14] LABS: Glucose, Whole Blood 209 mg/dL (60-115)
--- NOTE | 2021-01-18 11:39 | P.PNIM_ITS ---
Subjective Subjective Date of Service: 01/18/21 Interval History: seen in follow up for cellulitis no pain unless moving no fever, chills plan for I&D today Physical Exam Vital Signs: Vital Signs: Last Vital Signs Temp 99.3 F 01/18/21 07:59 Pulse 96 01/18/21 07:59 Resp 20 01/18/21 07:59 BP 115/79 01/18/21 07:59 Pulse Ox 96 01/18/21 07:59 Body Mass Index 34.7 Const: General: cooperative, healthy appearing, comfortable, alert and awake Nutritional Appearance: well nourished and overweight Orientation/consciousness: patient oriented x3 HENMT: Head: Yes normocephalic and Yes atraumatic Eyes: Sclerae: sclerae normal Resp: Effort & Inspection: normal respiratory effort and no respiratory distress Auscultation: clear to auscultation bilaterally Cardio: Rate: regular rate Rhythm: regular rhythm GI: Palpation (GI): Soft to palpation and nontender Skin: Other: Right mons pubis/Right labia with swelling and induration , no significant erythema. no fluctuance, no drainage Neuro: General: patient oriented x3 Cranial nerves: Yes CN's II-XII intact bilaterally and Yes Bilaterally intact EOM present Objective Data Current Medications Generic Name Dose Route Start Last Admin Trade Name Freq PRN Reason Stop Dose Admin Acetaminophen 650 mg 01/15/21 01:26 01/17/21 14:03 Acetaminophen 325 Mg Tablet PO 650 mg Q6H PRN Administration Pain, Mild (Pain Scale 1-3) Atorvastatin Calcium 40 mg 01/15/21 21:00 01/17/21 21:16 Atorvastatin Calcium 40 Mg Tablet PO 40 mg BEDTIME [facility] Administration Docusate Sodium 100 mg 01/15/21 01:26 Docusate Sodium 100 Mg Capsule PO DAILY PRN Constipation Piperacillin Sod/Tazobactam 50 mls @ 100 mls/hr 01/15/21 12:00 01/18/21 06:53 Sod 3.375 gm/ Sodium Chloride IV Infused Q6H [facility] Infusion Doxycycline Hyclate 100 mg/ 250 mls @ 166.67 mls/hr 01/15/21 10:45 01/18/21 11:04 Sodium Chloride IV Infused Q12H [facility] Infusion Insulin Human Lispro 0 unit 01/15/21 07:30 01/18/21 11:03 Insulin Lispro 100 Unit/Ml 3 Ml Vial SUBCUT Not Given QIDACHS [facility] Protocol Ondansetron HCl 4 mg 01/15/21 01:26 Ondansetron Hcl 4 Mg/2 Ml Vial IVPUSH Q8H PRN Nausea and Vomiting Pharmacy Consult 1 each 01/14/21 21:14 Consult Rx Perform Med Rec MISCELLANE ONCE PRN Consult order Pharmacy Consult 1 each 01/14/21 21:31 Consult Rx Perform Med Rec MISCELLANE ONCE PRN Consult order Sodium Chloride 3 ml 01/15/21 01:26 01/18/21 07:18 0.9 % Sodium Chloride Flush 3 Ml Syringe IVFLUSH 3 ml QSHIFT [facility] Administration Labs CBC & Chem 7: 01/18/21 04:02 01/18/21 04:02 Microbiology Microbiology Results: Microbiology 01/14/21 20:17 Blood - Venous Blood Culture - Preliminary No growth after 48 hours. 01/14/21 20:08 Blood - Venous Blood Culture - Preliminary No growth after 48 hours. Assessment and Plan (1) Phlegmon: Status: Acute Assessment and Plan: 55 yo F with hx of diabetes presents with compaints of suprapubic lump found to have phlegmon Sepsis secondary to cellulitis/Phlegmon mons pubis/right labia Pelvic CT shows evidence of phlegmon with no drainable collection Initially met sepsis with tachycardia, leukocytosis. Lactic acid within normal limits, no severe features. Leukocytosis trending down Still with significant swelling/induration. Soft tissue ultrasound from 01/17 showing early developing abscess -seen by surgery, plan for I&D under anaesthesia this morning -BCx negative x48 hours -continue Zosyn, doxycycline for now, further adjustment based on wound cultures DM POCs elevated - will increase sliding scale, add low dose lantus - SSI, POCs, Diabetic diet Hyperlipidemia -continue atorvastatin Dvt PPX: early ambulation, boots Attending-Dr. Powers
--- NOTE | 2021-01-18 11:49 | MHC.SHP ---
Pre-Procedural Eval Section A The patient is an INPATIENT: Yes The History & Physical has been completed within 30 days and I have reviewed it.: Yes Section B Chief Complaint: Phlegmon Allergies: Allergies Allergy/AdvReac Type Severity Reaction Status Date / Time seafood Allergy Shakiness Verified 01/14/21 19:47 Plan I have reviewed the history and physical and performed a pertinent physical examination on my patient. No changes have occurred unless specified.
[2021-01-18 12:16] LABS: Estimated Average Glucose 355 mg/dL
[2021-01-18 12:58] LABS: Glucose, Whole Blood 190 mg/dL (60-115)
--- NOTE | 2021-01-18 13:04 | P.CONAN_ITS ---
[facility] Active Problems Active Problems: All Active Problems (Updated 01/14/21 @ 23:00 by Macarena liang MD) Phlegmon (Acute) Past Medical History Medical History Diabetes Social History Social History Household Members: Family Housing: House Do you presently have visiting nurse or other home services: No Smoking Status: Never smoker Second Hand Smoke Exposure: No Use of substances other than those prescribed or required for medical reasons: No Currently Displaying Signs/Symptoms of Drug Intoxication Withdrawal: No Any prior treatment program specific to substance use: No Have you been hit, kicked, punched, or otherwise hurt by someone within the past year? If so, by whom?: No Do you feel safe in your current relationship?: Yes Is there a partner from a previous relationship who is making you feel unsafe now?: No Are you made to feel afraid or neglected: No Advance Directives: No Advance Directives Information Provided: Yes Do you have thoughts of harming others: None Do you have a plan to hurt others: No Plan Recently lost weight without trying: Yes How much weight loss: 34pounds or more Eating poorly because of decreased appetite: No Nutrition screen score: 6 Nutrition Risks: No Nutritional Risk Patient : No : No Poor oral hygiene: No service: No Current occupational status: employed Meds Allergies Allergy/AdvReac Type Severity Reaction Status Date / Time seafood Allergy Shakiness Verified 01/14/21 19:47 Active Medications: Current Medications Generic Name Dose Route Start Last Admin Trade Name Altaf PRN Reason Stop Dose Admin Acetaminophen 650 mg 01/15/21 01:26 01/17/21 14:03 Acetaminophen 325 Mg Tablet PO 650 mg Q6H PRN Administration Pain, Mild (Pain Scale 1-3) Atorvastatin Calcium 40 mg 01/15/21 21:00 01/17/21 21:16 Atorvastatin Calcium 40 Mg Tablet PO 40 mg BEDTIME [facility] Administration Docusate Sodium 100 mg 01/15/21 01:26 Docusate Sodium 100 Mg Capsule PO DAILY PRN Constipation Piperacillin Sod/Tazobactam 50 mls @ 100 mls/hr 01/15/21 12:00 01/18/21 06:53 Sod 3.375 gm/ Sodium Chloride IV Infused Q6H [facility] Infusion Doxycycline Hyclate 100 mg/ 250 mls @ 166.67 mls/hr 01/15/21 10:45 01/18/21 11:04 Sodium Chloride IV Infused Q12H [facility] Infusion Insulin Glargine 10 unit 01/18/21 21:00 Insulin Glargine,Hum.Rec.Anlog 100 Unit/Ml 10 Ml Vial SUBCUT BEDTIME [facility] Insulin Human Lispro 0 unit 01/15/21 07:30 01/18/21 11:03 Insulin Lispro 100 Unit/Ml 3 Ml Vial SUBCUT Not Given QIDACHS [facility] Protocol Ondansetron HCl 4 mg 01/15/21 01:26 Ondansetron Hcl 4 Mg/2 Ml Vial IVPUSH Q8H PRN Nausea and Vomiting Pharmacy Consult 1 each 01/14/21 21:14 Consult Rx Perform Med Rec MISCELLANE ONCE PRN Consult order Pharmacy Consult 1 each 01/14/21 21:31 Consult Rx Perform Med Rec MISCELLANE ONCE PRN Consult order Sodium Chloride 3 ml 01/15/21 01:26 01/18/21 07:18 0.9 % Sodium Chloride Flush 3 Ml Syringe IVFLUSH 3 ml QSHIFT [facility] Administration Home Medications Medication Instructions Recorded Confirmed Last Taken Type atorvastatin 1 tab PO BEDTIME 01/14/21 01/14/21 01/13/21 History glipizide 1 tab PO BID 01/14/21 01/14/21 01/13/21 History metformin 1 tab PO DAILY@1400 01/14/21 01/14/21 01/13/21 History Exam Exam Date and Time: January 18, 2021 1304 Height,Weight and Vital Signs: Height 5 ft 2 in Weight 86.183 kg Last Vital Signs Temp 97.3 F 01/18/21 12:42 Pulse 88 01/18/21 12:52 Resp 16 01/18/21 12:52 BP 112/55 L 01/18/21 12:52 Pulse Ox 97 01/18/21 12:52 Pertinent Lab Results Pertinent Lab Results: Laboratory Tests 01/14/21 01/14/21 01/14/21 20:09 20:11 20:11 WBC 14.3 H RBC 4.65 Hgb 13.1 Hct 40.2 MCV 86.5 MCH 28.2 MCHC 32.6 RDW 12.6 Plt Count 248 MPV 11.5 Immature Gran % (Auto) 0.4 Neut % (Auto) 69.6 Lymph % (Auto) 23.6 Maries % (Auto) 5.5 Eos % (Auto) 0.6 Baso % (Auto) 0.3 Lymph # (Auto) 3.4 Maries # (Auto) 0.8 Eos # (Auto) 0.1 Baso # (Auto) 0.0 Abs Immat Gran (auto) 0.06 H Absolute Neuts (auto) 10.0 H Absolute Nucleated RBC 0.000 Nucleated RBC % (auto) 0.0 Hold Blue Top SEE NOTE Sodium Potassium Chloride Carbon Dioxide Anion Gap BUN Creatinine Estim Creat Clear Calc Estimated GFR POC Glucose Random Glucose Estimat Average Glucose Hemoglobin A1c % Lactic Acid 1.3 Calcium Total Bilirubin Direct Bilirubin AST ALT Alkaline Phosphatase Total Protein Albumin Urine Color Urine Appearance Urine pH Ur Specific [place] Urine Protein Urine Glucose (UA) Urine Ketones Urine Blood Urine Nitrite Ur Leukocyte Esterase Urine RBC Urine WBC Ur Squamous Epith Cells Urine Bacteria Acetone, Qual COVID-19 ([facility]) COVID-Insight[employer] 01/14/21 01/14/21 01/14/21 20:11 21:04 21:23 WBC RBC Hgb Hct MCV MCH MCHC RDW Plt Count MPV Immature Gran % (Auto) Neut % (Auto) Lymph % (Auto) Maries % (Auto) Eos % (Auto) Baso % (Auto) Lymph # (Auto) Maries # (Auto) Eos # (Auto) Baso # (Auto) Abs Immat Gran (auto) Absolute Neuts (auto) Absolute Nucleated RBC Nucleated RBC % (auto) Hold Blue Top Sodium 133 L Potassium 4.0 Chloride 97 Carbon Dioxide 26 Anion Gap 14 BUN 12 Creatinine 0.88 Estim Creat Clear Calc 73.5 Estimated GFR > 60 POC Glucose Random Glucose 419 H* Estimat Average Glucose Hemoglobin A1c % Lactic Acid Calcium 9.2 Total Bilirubin 0.3 Direct Bilirubin 0.2 AST 96 H ALT 104 H Alkaline Phosphatase 156 H Total Protein 7.2 Albumin 4.1 Urine Color YELLOW Urine Appearance CLEAR Urine pH 6.0 Ur Specific [place] 1.015 Urine Protein NEG Urine Glucose (UA) >=1000 H Urine Ketones 5 Urine Blood NEG Urine Nitrite NEG Ur Leukocyte Esterase NEG Urine RBC 1-4 Urine WBC 1-4 Ur Squamous Epith Cells 1+ Urine Bacteria 1+ Acetone, Qual Negative COVID-19 ([facility]) COVID-[employer]ight[employer] 01/14/21 01/14/21 01/15/21 21:23 22:42 04:06 WBC 13.8 H RBC 4.70 Hgb 13.3 Hct 41.6 MCV 88.5 MCH 28.3 MCHC 32.0 RDW 12.5 Plt Count 226 MPV 11.8 Immature Gran % (Auto) 0.4 Neut % (Auto) 66.5 Lymph % (Auto) 24.0 Maries % (Auto) 7.5 Eos % (Auto) 1.2 Baso % (Auto) 0.4 Lymph # (Auto) 3.3 Maries # (Auto) 1.0 Eos # (Auto) 0.2 Baso # (Auto) 0.1 Abs Immat Gran (auto) 0.05 H Absolute Neuts (auto) 9.2 H Absolute Nucleated RBC 0.000 Nucleated RBC % (auto) 0.0 Hold Blue Top Sodium Potassium Chloride Carbon Dioxide Anion Gap BUN Creatinine Estim Creat Clear Calc Estimated GFR POC Glucose 217 H Random Glucose Estimat Average Glucose Hemoglobin A1c % Lactic Acid Calcium Total Bilirubin Direct Bilirubin AST ALT Alkaline Phosphatase Total Protein Albumin Urine Color Urine Appearance Urine pH Ur Specific [place] Urine Protein Urine Glucose (UA) Urine Ketones Urine Blood Urine Nitrite Ur Leukocyte Esterase Urine RBC Urine WBC Ur Squamous Epith Cells Urine Bacteria Acetone, Qual COVID-19 ([facility]) Negative COVID-19 Clin Com See Note 01/15/21 01/15/21 01/15/21 04:06 06:52 10:53 WBC RBC Hgb Hct MCV MCH MCHC RDW Plt Count MPV Immature Gran % (Auto) Neut % (Auto) Lymph % (Auto) Maries % (Auto) Eos % (Auto) Baso % (Auto) Lymph # (Auto) [place] # (Auto) Eos # (Auto) Baso # (Auto) Abs Immat Gran (auto) Absolute Neuts (auto) Absolute Nucleated RBC Nucleated RBC % (auto) Hold Blue Top Sodium 136 Potassium 4.0 Chloride 104 Carbon Dioxide 20 L Anion Gap 16 BUN 9 Creatinine 0.63 Estim Creat Clear Calc 102.8 Estimated GFR > 60 POC Glucose 254 H 232 H Random Glucose 239 H D Estimat Average Glucose Hemoglobin A1c % Lactic Acid Calcium 8.4 D Total Bilirubin Direct Bilirubin AST ALT Alkaline Phosphatase Total Protein Albumin Urine Color Urine Appearance Urine pH Ur Specific [place] Urine Protein Urine Glucose (UA) Urine Ketones Urine Blood Urine Nitrite Ur Leukocyte Esterase Urine RBC Urine WBC Ur Squamous Epith Cells Urine Bacteria Acetone, Qual COVID-19 ([facility]) COVID-19 [employer] 01/15/21 01/15/21 01/16/21 16:08 20:53 05:11 WBC 13.3 H RBC 4.52 Hgb 12.4 Hct 39.5 MCV 87.4 MCH 27.4 MCHC 31.4 RDW 12.7 Plt Count 255 MPV 11.9 Immature Gran % (Auto) Neut % (Auto) Lymph % (Auto) Maries % (Auto) Eos % (Auto) Baso % (Auto) Lymph # (Auto) Maries # (Auto) Eos # (Auto) Baso # (Auto) Abs Immat Gran (auto) Absolute Neuts (auto) Absolute Nucleated RBC 0.000 Nucleated RBC % (auto) 0.0 Hold Blue Top Sodium Potassium Chloride Carbon Dioxide Anion Gap BUN Creatinine Estim Creat Clear Calc Estimated GFR POC Glucose 215 H 249 H Random Glucose Estimat Average Glucose Hemoglobin A1c % Lactic Acid Calcium Total Bilirubin Direct Bilirubin AST ALT Alkaline Phosphatase Total Protein Albumin Urine Color Urine Appearance Urine pH Ur Specific [place] Urine Protein Urine Glucose (UA) Urine Ketones Urine Blood Urine Nitrite Ur Leukocyte Esterase Urine RBC Urine WBC Ur Squamous Epith Cells Urine Bacteria Acetone, Qual COVID-19 ([facility]) [employer] 01/16/21 01/16/21 01/16/21 07:12 11:03 16:29 WBC RBC Hgb Hct MCV MCH MCHC RDW Plt Count MPV Immature Gran % (Auto) Neut % (Auto) Lymph % (Auto) Maries % (Auto) Eos % (Auto) Baso % (Auto) Lymph # (Auto) Maries # (Auto) Eos # (Auto) Baso # (Auto) Abs Immat Gran (auto) Absolute Neuts (auto) Absolute Nucleated RBC Nucleated RBC % (auto) Hold Blue Top Sodium Potassium Chloride Carbon Dioxide Anion Gap BUN Creatinine Estim Creat Clear Calc Estimated GFR POC Glucose 266 H 219 H 359 H* Random Glucose Estimat Average Glucose Hemoglobin A1c % Lactic Acid Calcium Total Bilirubin Direct Bilirubin AST ALT Alkaline Phosphatase Total Protein Albumin Urine Color Urine Appearance Urine pH Ur Specific [place] Urine Protein Urine Glucose (UA) Urine Ketones Urine Blood Urine Nitrite Ur Leukocyte Esterase Urine RBC Urine WBC Ur Squamous Epith Cells Urine Bacteria Acetone, Qual COVID-19 ([facility]) [employer] 01/16/21 01/17/2101/17/21 20:58 07:27 11:13 WBC RBC Hgb Hct MCV MCH MCHC RDW Plt Count MPV Immature Gran % (Auto) Neut % (Auto) Lymph % (Auto) [place] % (Auto) Eos % (Auto) Baso % (Auto) Lymph # (Auto) Maries # (Auto) Eos # (Auto) Baso # (Auto) Abs Immat Gran (auto) Absolute Neuts (auto) Absolute Nucleated RBC Nucleated RBC % (auto) Hold Blue Top Sodium Potassium Chloride Carbon Dioxide Anion Gap BUN Creatinine Estim Creat Clear Calc Estimated GFR POC Glucose 258 H 236 H 298 H Random Glucose Estimat Average Glucose Hemoglobin A1c % Lactic Acid Calcium Total Bilirubin Direct Bilirubin AST ALT Alkaline Phosphatase Total Protein Albumin Urine Color Urine Appearance Urine pH Ur Specific [place] Urine Protein Urine Glucose (UA) Urine Ketones Urine Blood Urine Nitrite Ur Leukocyte Esterase Urine RBC Urine WBC Ur Squamous Epith Cells Urine Bacteria Acetone, Qual COVID-19 ([facility]) [employer] 01/17/21 01/17/21 01/18/21 16:08 19:50 04:02 WBC 10.5 RBC 4.49 Hgb 12.6 Hct 38.8 MCV 86.4 MCH 28.1 MCHC 32.5 RDW 12.6 Plt Count 308 MPV 11.3 Immature Gran % (Auto) Neut % (Auto) Lymph % (Auto) [place]ies % (Auto) Eos % (Auto) Baso % (Auto) Lymph # (Auto) [place]ies # (Auto) Eos # (Auto) Baso # (Auto) Abs Immat Gran (auto) Absolute Neuts (auto) Absolute Nucleated RBC 0.000 Nucleated RBC % (auto) 0.0 Hold Blue Top Sodium Potassium Chloride Carbon Dioxide Anion Gap BUN Creatinine Estim Creat Clear Calc Estimated GFR POC Glucose 242 H 328 H Random Glucose Estimat Average Glucose Hemoglobin A1c % Lactic Acid Calcium Total Bilirubin Direct Bilirubin AST ALT Alkaline Phosphatase Total Protein Albumin Urine Color Urine Appearance Urine pH Ur Specific [place] Urine Protein Urine Glucose (UA) Urine Ketones Urine Blood Urine Nitrite Ur Leukocyte Esterase Urine RBC Urine WBC Ur Squamous Epith Cells Urine Bacteria Acetone, Qual COVID-19 ([facility]) COVID-[employer] 01/18/21 01/18/21 01/18/21 04:02 04:02 07:17 WBC RBC Hgb Hct MCV MCH MCHC RDW Plt Count MPV Immature Gran % (Auto) Neut % (Auto) Lymph % (Auto) [place]ies % (Auto) Eos % (Auto) Baso % (Auto) Lymph # (Auto) [place] # (Auto) Eos # (Auto) Baso # (Auto) Abs Immat Gran (auto) Absolute Neuts (auto) Absolute Nucleated RBC Nucleated RBC % (auto) Hold Blue Top Sodium 137 Potassium 3.4 Chloride 103 Carbon Dioxide 23 Anion Gap 14 BUN 7 L Creatinine 0.62 Estim Creat Clear Calc 104.4 Estimated GFR > 60 POC Glucose 254 H Random Glucose 264 H Estimat Average Glucose 355 Hemoglobin A1c % 14.0 Lactic Acid Calcium 8.8 Total Bilirubin Direct Bilirubin AST ALT Alkaline Phosphatase Total Protein Albumin Urine Color Urine Appearance Urine pH Ur Specific [place] Urine Protein Urine Glucose (UA) Urine Ketones Urine Blood Urine Nitrite Ur Leukocyte Esterase Urine RBC Urine WBC Ur Squamous Epith Cells Urine Bacteria Acetone, Qual COVID-19 ([facility]) COVID-19 [employer] [employer] 01/18/21 01/18/21 10:55 12:50 WBC RBC Hgb Hct MCV MCH MCHC RDW Plt Count MPV Immature Gran % (Auto) Neut % (Auto) Lymph % (Auto) [place] % (Auto) Eos % (Auto) Baso % (Auto) Lymph # (Auto) [place] # (Auto) Eos # (Auto) Baso # (Auto) Abs Immat Gran (auto) Absolute Neuts (auto) Absolute Nucleated RBC Nucleated RBC % (auto) Hold Blue Top Sodium Potassium Chloride Carbon Dioxide Anion Gap BUN Creatinine Estim Creat Clear Calc Estimated GFR POC Glucose 209 H 190 H Random Glucose Estimat Average Glucose Hemoglobin A1c % Lactic Acid Calcium Total Bilirubin Direct Bilirubin AST ALT Alkaline Phosphatase Total Protein Albumin Urine Color Urine Appearance Urine pH Ur Specific [place] Urine Protein Urine Glucose (UA) Urine Ketones Urine Blood Urine Nitrite Ur Leukocyte Esterase Urine RBC Urine WBC Ur Squamous Epith Cells Urine Bacteria Acetone, Qual COVID-19 ([facility]) COVID-19 [employer] Com Airway Mallampati Class: III TM Dist: >3cm Neck ROM: Full Loose/Missing/Broken Teeth: Yes, Upper and Lower
--- NOTE | 2021-01-18 13:13 | PM.OP ---
Brief Operative Note Date of Service: 01/18/21 Pre-op diagnosis: Soft tissue infection mons pubis on right labia majora Post-op diagnosis: same Procedure: Aspiration and incision and drainage of abscess mons pubis and right labia majora Surgeon: Vivian Ruelas MD Anesthesia: GLMA Was an Pediatric Nephrologist used for this Procedure?: No Estimated blood loss (mL): 8 Pathology: other (Cultures) Condition: stable Disposition: PACU
--- NOTE | 2021-01-18 13:16 | W.PM.OPN ---
Operative Note Operative Note Date of Service: 01/18/21 Narrative: Preoperative diagnosis-soft tissue infection of mons pubis and right labia majora Postoperative diagnosis-same Procedure-aspiration and incision and drainage of abscess mons pubis and right labia majora Green Material Value Added Assessor-none Anesthesia-general laryngeal mask Specimen-cultures Estimated blood loss -8 cc Immediate complications-none Indications: This is a 55-year-old female with a history of diabetes who presented with swelling and pain involving the mons pubis on right labia majora. Workup did not reveal any evidence of abscess and she had a course of slow clinical improvement, but on 01/17, reported enlargement in the area palpable swelling. Ultrasound that day suggested the presence of a fluid collection. Exploration was advised. Procedure in detail: With the patient in the supine position following induction of adequate general anesthesia, time-out procedure was performed. Hips were abducted to obtain better visualization of the involved area of the mons pubis and right labia majora. The operative area was prepped with Betadine solution and was draped sterilely. Initially, the area of induration on the right side of the mons pubis was aspirated using a 12 cc syringe and 18 gauge needle. A small amount of purulence material appear to be present in the hub of the needle. Three sites were aspirated, 1 more superiorly on the right side of the mons, 1 more inferiorly and 1 on the superior aspect of the right labia majora. There was a small amount of bleeding noted from the superior my on site and from the right labia majora site. Purulence drainage was noted from the site on the inferior aspect of the right mons pubis. Skin and subcutaneous tissues around the inferior mons pubis aspiration site were infiltrated with local anesthetic and an incision measuring approximately 1.5 cm was made. Subcutaneous tissues were read explored using a hemostat. There was some purulent-appearing drainage from superficial tissues though no pocket was identified. At about the level of the junction between the fascia and subcutaneous tissues, a moderate collection of purulence material was encountered and drained. Cultures were taken. The wound was copiously irrigated with saline solution and was then loosely packed with quarter-inch plain packing. A dry sterile dressing was applied. She tolerated the procedure well and was transported to the postanesthesia care unit in stable condition. There were no immediate complications.
[2021-01-18 16:04] LABS: Glucose, Whole Blood 308 mg/dL (60-115)
[2021-01-18 20:04] LABS: Glucose, Whole Blood 300 mg/dL (60-115)
[2021-01-18] MEDS: Insulin Glargine,Hum.rec.anlog 100 UNIT/ML 10 ML VIAL 20 UNIT SUBCUT (20:51)
[2021-01-19] MEDS: Acetaminophen 325 MG TABLET 650 MG PO ×2 (00:29→09:30)
[2021-01-19] MEDS: Piperacillin Sodium/Tazobactam 3.375 GM in 0.9 % Sodium Chloride 50 ML IV ×4 (00:31→16:54)
[2021-01-19] MEDS: 0.9 % Sodium Chloride Flush 3 ML SYRINGE IVFLUSH ×4 (00:32→21:03)
--- NOTE | 2021-01-19 07:01 | HO.POSTANES ---
Post Anesthesia Evaluation Post Anesthesia Evaluation Vital Signs: Vital Signs Temp Pulse Resp BP Pulse Ox 01/18/21 19:11 97.8 F 96 18 146/76 H 97 Anesthesia: General Mental Status: Awake Pain Control: Satisfactory Nausea/Vomiting: None Hydration: Adequate Anesthesia-Related Issues: No Anes. Related Issues
[2021-01-19 07:17] LABS: Glucose, Whole Blood 207 mg/dL (60-115)
[2021-01-19] MEDS: Insulin Lispro 100 UNIT/ML 3 ML VIAL SUBCUT ×4 (07:19→20:59)
--- NOTE | 2021-01-19 08:53 | PM.PNGS ---
Subjective Subjective Date of Service: 01/19/21 Interval history: Feels well but does complain of pain on the I&D site Physical Exam Vital Signs: Vital Signs: Last Vital Signs Temp 97.8 F 01/18/21 19:11 Pulse 96 01/18/21 19:11 Resp 18 01/18/21 19:11 BP 146/76 H 01/18/21 19:11 Pulse Ox 97 01/18/21 19:11 Body Mass Index 34.7 Const: General: comfortable and no acute distress Resp: Effort & Inspection: normal respiratory effort Cardio: Rate: regular rate GI: Other: I&D site on the mons pubis right side still with some drainage, no significant fluctuance Laboratory Results - last 24 hr 01/18/21 01/18/21 01/18/21 04:02 10:55 12:50 POC Glucose 209 H 190 H Estimat Average Gl ucose 355 Hemoglobin A1c % 14.0 01/18/21 01/18/21 01/19/21 15:54 19:55 07:13 POC Glucose 308 H 300 H 207 H Estimat Average Gl ucose Hemoglobin A1c % Progress Note: A&P Assessment and plan (1) Phlegmon: Status: Acute Assessment and Plan: Status post I and D of abscess, mons pubis I changed her dressings Light packing applied Continue antibiotics Follow up on cultures Wound care Will follow Fall Risk Details Current Medications: Current Medications Generic Name Dose Route Start Last Admin Trade Name Freq PRN Reason Stop Dose Admin Acetaminophen 650 mg 01/15/21 01:26 01/19/21 00:29 Acetaminophen 325 Mg Tablet PO 650 mg Q6H PRN Administration Pain, Mild (Pain Scale 1-3) Atorvastatin Calcium 40 mg 01/15/21 21:00 01/17/21 21:16 Atorvastatin Calcium 40 Mg Tablet PO 40 mg BEDTIME [facility] Administration Docusate Sodium 100 mg 01/15/21 01:26 Docusate Sodium 100 Mg Capsule PO DAILY PRN Constipation Glipizide 10 mg 01/19/21 08:15 Glipizide 10 Mg Tablet PO BIDWM [facility] Piperacillin Sod/Tazobactam 50 mls @ 100 mls/hr 01/15/21 12:00 01/19/21 06:31 Sod 3.375 gm/ Sodium Chloride IV Infused Q6H [facility] Infusion Doxycycline Hyclate 100 mg/ 250 mls @ 166.67 mls/hr 01/15/21 10:45 01/19/21 01:17 Sodium Chloride IV Infused Q12H [facility] Infusion Insulin Glargine 20 unit 01/18/21 21:00 01/18/21 20:51 Insulin Glargine,Hum.Rec.Anlog 100 Unit/Ml 10 Ml Vial SUBCUT 20 unit BEDTIME [facility] Administration Insulin Human Lispro 0 unit 01/15/21 07:30 01/19/21 07:19 Insulin Lispro 100 Unit/Ml 3 Ml Vial SUBCUT 6 unit QIDACHS [facility] Administration Protocol Ondansetron HCl 4 mg 01/15/21 01:26 Ondansetron Hcl 4 Mg/2 Ml Vial IVPUSH Q8H PRN Nausea and Vomiting Oxycodone HCl 5 mg 01/18/21 13:48 Oxycodone Hcl Immed Release 5 Mg Tablet PO Q6H PRN Pain, Moderate (Pain Scale 4-6 Pharmacy Consult 1 each 01/14/21 21:14 Consult Rx Perform Med Rec MISCELLANE ONCE PRN Consult order Pharmacy Consult 1 each 01/14/21 21:31 Consult Rx Perform Med Rec MISCELLANE ONCE PRN Consult order Sodium Chloride 3 ml 01/15/21 01:26 01/19/21 07:19 0.9 % Sodium Chloride Flush 3 Ml Syringe IVFLUSH 3 ml QSHIFT [facility] Administration Time Spent With Patient Time: Total time spent is greater than 50% in coordination of care (as documented) at patient's floor/unit and/or counseling patient: Time with patient: 15 - 24 minutes Procedures Date of Service Date of Service: 01/19/21
[2021-01-19] MEDS: Doxycycline Hyclate 100 MG in 0.9 % Sodium Chloride 250 ML 166.67 MG IV ×2 (09:30→22:06)
[2021-01-19] MEDS: glipiZIDE 10 MG TABLET PO ×2 (09:30→16:51)
[2021-01-19 12:21] LABS: Glucose, Whole Blood 248 mg/dL (60-115)
--- NOTE | 2021-01-19 14:04 | MHC.CM.PN ---
per multi dis rounds exp-ected dc in 1 to 2 days plan remains home no servcies
[2021-01-19 15:17] VITALS: BP 142/73; PULSE 85; RESP 17; TEMP 36.8; O2SAT 96
--- NOTE | 2021-01-19 16:12 | HO.PM.IMPN ---
Subjective Subjective Date of Service: 01/19/21 Interval History: Patient resting comfortably denies pain at site of I&D no other acute issues over night. ros No fever no chills No headache, no dizziness No chest pain, no palpitation No shortness of breath, no cough Physical Exam Vital Signs: Vital Signs: Last Vital Signs Temp 98.2 F 01/19/21 15:17 Pulse 85 01/19/21 15:17 Resp 17 01/19/21 15:17 BP 142/73 H 01/19/21 15:17 Pulse Ox 96 01/19/21 15:17 Body Mass Index 34.7 General resting comfortably in no acute distress. Neck supple no JVD. CVS regular rate rhythm, Respiratory lungs clear to auscultation, no respiratory distress, no wheeze, no rhonchi. Gastrointestinal abdomen soft, nontender, bowel sounds audible Extremities no edema. Right mons pubis right labia, dressing intact noted to have some drainage with no fluctuation Neuro nonfocal ,speech clear. Skin no rash Objective Data Current Medications Generic Name Dose Route Start Last Admin Trade Name Freq PRN Reason Stop Dose Admin Acetaminophen 650 mg 01/15/21 01:26 01/19/21 09:30 Acetaminophen 325 Mg Tablet PO 650 mg Q6H PRN Administration Pain, Mild (Pain Scale 1-3) Atorvastatin Calcium 40 mg 01/15/21 21:00 01/17/21 21:16 Atorvastatin Calcium 40 Mg Tablet PO 40 mg BEDTIME [facility] Administration Docusate Sodium 100 mg 01/15/21 01:26 Docusate Sodium 100 Mg Capsule PO DAILY PRN Constipation Glipizide 10 mg 01/19/21 08:15 01/19/21 09:30 Glipizide 10 Mg Tablet PO 10 mg BIDWM [facility] Administration Piperacillin Sod/Tazobactam 50 mls @ 100 mls/hr 01/15/21 12:00 01/19/21 11:34 Sod 3.375 gm/ Sodium Chloride IV Infused Q6H [facility] Infusion Doxycycline Hyclate 100 mg/ 250 mls @ 166.67 mls/hr 01/15/21 10:45 01/19/21 11:03 Sodium Chloride IV Infused Q12H [facility] Infusion Insulin Glargine 20 unit 01/18/21 21:00 01/18/21 20:51 Insulin Glargine,Hum.Rec.Anlog 100 Unit/Ml 10 Ml Vial SUBCUT 20 unit BEDTIME [facility] Administration Insulin Human Lispro 0 unit 01/15/21 07:30 01/19/21 11:00 Insulin Lispro 100 Unit/Ml 3 Ml Vial SUBCUT 6 unit QIDACHS [facility] Administration Protocol Ondansetron HCl 4 mg 01/15/21 01:26 Ondansetron Hcl 4 Mg/2 Ml Vial IVPUSH Q8H PRN Nausea and Vomiting Oxycodone HCl 5 mg 01/18/21 13:48 Oxycodone Hcl Immed Release 5 Mg Tablet PO Q6H PRN Pain, Moderate (Pain Scale 4-6 Pharmacy Consult 1 each 01/14/21 21:14 Consult Rx Perform Med Rec MISCELLANE ONCE PRN Consult order Pharmacy Consult 1 each 01/14/21 21:31 Consult Rx Perform Med Rec MISCELLANE ONCE PRN Consult order Sodium Chloride 3 ml 01/15/21 01:26 01/19/21 07:19 0.9 % Sodium Chloride Flush 3 Ml Syringe IVFLUSH 3 ml QSHIFT [facility] Administration Labs CBC & Chem 7: 01/18/21 04:02 01/18/21 04:02 Microbiology Microbiology Results: Microbiology 01/18/21 Unknown Labia Gram Stain - Final 01/18/21 Unknown Labia Routine Culture - Preliminary Strep agalactiae (Grp B) 01/14/21 20:17 Blood - Venous Blood Culture - Preliminary No growth after 48 hours. 01/14/21 20:08 Blood - Venous Blood Culture - Preliminary No growth after 48 hours. Assessment and Plan (1) Abscess of right genital labia: Status: Acute (2) Phlegmon: Status: Acute Assessment and Plan: 55 yo F with hx of diabetes presents with compaints of suprapubic lump found to have phlegmon Sepsis secondary to cellulitis/Phlegmon mons pubis/right labia Patient afebrile no acute issues overnight Pelvic CT shows evidence of phlegmon with no drainable collection Initially met sepsis with tachycardia, leukocytosis. Lactic acid within normal limits, no severe features. Leukocytosis resolved, blood cultures x2 negative Soft tissue ultrasound from 01/17 showed early developing abscess, patient underwent I&D under anaesthesia 01/18 postprocedure patient denies pain, no fevers Dressing changed by General surgery light packing applied will continue Zosyn, and doxycycline for now, further adjustment based on wound cultures DM POCs elevated around 250, continue insulin sliding scale and Lantus will resume glipizide 10 mg b.i.d. home dose, continue to hold metformin hemoglobin aic 14. Continue Diabetic diet Hyperlipidemia continue atorvastatin Dvt PPX: early ambulation, boots
[2021-01-19 16:30] LABS: Glucose, Whole Blood 164 mg/dL (60-115)
[2021-01-19 19:08] VITALS: BP 124/83; PULSE 77; TEMP 36.6; O2SAT 94
[2021-01-19 20:37] LABS: Glucose, Whole Blood 160 mg/dL (60-115)
[2021-01-19] MEDS: Insulin Glargine,Hum.rec.anlog 100 UNIT/ML 10 ML VIAL 20 UNIT SUBCUT (21:00)
[2021-01-19 23:14] VITALS: BP 141/66; PULSE 80; RESP 18; TEMP 36.7; O2SAT 100
[2021-01-20] MEDS: Piperacillin Sodium/Tazobactam 3.375 GM in 0.9 % Sodium Chloride 50 ML IV ×3 (00:31→11:11)
[2021-01-20 03:11] VITALS: BP 128/79; PULSE 69; RESP 18; TEMP 36.7; O2SAT 97
[2021-01-20 07:15] LABS: Glucose, Whole Blood 165 mg/dL (60-115)
[2021-01-20] MEDS: glipiZIDE 10 MG TABLET PO (07:24)
[2021-01-20] MEDS: Insulin Lispro 100 UNIT/ML 3 ML VIAL SUBCUT ×2 (07:24→11:11)
[2021-01-20] MEDS: 0.9 % Sodium Chloride Flush 3 ML SYRINGE IVFLUSH (07:24)
--- NOTE | 2021-01-20 09:26 | P.PNGS_ITS ---
Subjective Subjective Date of Service: 01/20/21 Interval history: feels much better pain has improved markedly Physical Exam Vital Signs: Vital Signs: Last Vital Signs Temp 98.1 F 01/20/21 03:11 Pulse 69 01/20/21 03:11 Resp 18 01/20/21 03:11 BP 128/79 01/20/21 03:11 Pulse Ox 97 01/20/21 03:11 Body Mass Index 34.7 Const: General: comfortable and no acute distress Resp: Effort & Inspection: normal respiratory effort Cardio: Rate: regular rate : Other: I and D site, right mons open, scanty drainage, much less indurated Progress Note: A&P Assessment and plan (1) Abscess of right genital labia: Status: Acute Assessment and Plan: I and D done Site much improved Dressings changed I applied light packing Appears ready to be discharged on p.o. antibiotics Warm compresses discussed with patient Fall Risk Details Current Medications: Current Medications Generic Name Dose Route Start Last Admin Trade Name Freq PRN Reason Stop Dose Admin Acetaminophen 650 mg 01/15/21 01:26 01/19/21 09:30 Acetaminophen 325 Mg Tablet PO 650 mg Q6H PRN Administration Pain, Mild (Pain Scale 1-3) Atorvastatin Calcium 40 mg 01/15/21 21:00 01/17/21 21:16 Atorvastatin Calcium 40 Mg Tablet PO 40 mg BEDTIME [facility] Administration Docusate Sodium 100 mg 01/15/21 01:26 Docusate Sodium 100 Mg Capsule PO DAILY PRN Constipation Glipizide 10 mg 01/19/21 08:15 01/20/21 07:24 Glipizide 10 Mg Tablet PO 10 mg BIDWM [facility] Administration Piperacillin Sod/Tazobactam 50 mls @ 100 mls/hr 01/15/21 12:00 01/20/21 06:14 Sod 3.375 gm/ Sodium Chloride IV Infused Q6H [facility] Infusion Doxycycline Hyclate 100 mg/ 250 mls @ 166.67 mls/hr 01/15/21 10:45 01/20/21 00:21 Sodium Chloride IV Infused Q12H [facility] Infusion Insulin Glargine 20 unit 01/18/21 21:00 01/19/21 21:00 Insulin Glargine,Hum.Rec.Anlog 100 Unit/Ml 10 Ml Vial SUBCUT 20 unit BEDTIME [facility] Administration Insulin Human Lispro 0 unit 01/15/21 07:30 01/20/21 07:24 Insulin Lispro 100 Unit/Ml 3 Ml Vial SUBCUT 4 unit QIDACHS [facility] Administration Protocol Ondansetron HCl 4 mg 01/15/21 01:26 Ondansetron Hcl 4 Mg/2 Ml Vial IVPUSH Q8H PRN Nausea and Vomiting Oxycodone HCl 5 mg 01/18/21 13:48 Oxycodone Hcl Immed Release 5 Mg Tablet PO Q6H PRN Pain, Moderate (Pain Scale 4-6 Pharmacy Consult 1 each 01/14/21 21:14 Consult Rx Perform Med Rec MISCELLANE ONCE PRN Consult order Pharmacy Consult 1 each 01/14/21 21:31 Consult Rx Perform Med Rec MISCELLANE ONCE PRN Consult order Sodium Chloride 3 ml 01/15/21 01:26 01/20/21 07:24 0.9 % Sodium Chloride Flush 3 Ml Syringe IVFLUSH 3 ml QSHIFT [facility] Administration Time Spent With Patient Time: Total time spent is greater than 50% in coordination of care (as documented) at patient's floor/unit and/or counseling patient: Time with patient: 15 - 24 minutes Procedures Date of Service Date of Service: 01/20/21
[2021-01-20] MEDS: Doxycycline Hyclate 100 MG in 0.9 % Sodium Chloride 250 ML 166.67 MG IV (10:00)
[2021-01-20 11:02] LABS: Glucose, Whole Blood 203 mg/dL (60-115)
--- NOTE | 2021-01-20 11:44 | PM.DS ---
DS: Providers Provider Date of Service: 01/20/21 Date of admission: 01/15/21 00:31 Primary care physician: Clement Maynard MD Consults: 01/15/21 01:26 Consult to General Surgery Routine Consulting Provider: [place] Ba Reason for consultation: phlegmon, abscess Has provider been notified: No DS: Diagnosis Discharge Diagnosis (1) Abscess of right genital labia: Status: Acute DS: Medications Discharge Medications Home Medications: Home Medications Medication Instructions Recorded Confirmed atorvastatin 1 tab PO BEDTIME 01/14/21 01/14/21 glipizide 1 tab PO BID 01/14/21 01/14/21 metformin 1 tab PO DAILY@1400 01/14/21 01/14/21 Previous Rx's Medication Instructions Recorded amoxicillin-pot clavulanate 1 tab PO BID #10 tab 01/20/21 [Augmentin] DS: Summary Hospital Course Hospital Course: History of presenting illness Chief Complaint: Lump this is a 55 yo F with pmhx of DM presents to the hospital with lump on the groin region. reports that she noticed a lump about 1 day prior to presentation but today, suddenyl grew large and had 20/10 pain. No drainage, no fever or chills. No urinary symptoms. she shaves that area and had a similar incident in the past. pt denies any headache, change in vision, no chest pain, no abdominal pain, n/v, no diarrhea or constipation. No lower extremity edema, no weakness or numbness. On arrival, HDS with temp of 100.3, HR of 125, RR of 18, BP of 143/68, and sating 97% of RA Labs are significant for WBC for 13.8, AST of 96, ALT of 104, Alk Phosph of 156, UA negative CT of pelvis shows focal decreased attenuation region in the soft tissue of the right mons/periclitoral region likely representing phlegmon/early abscess. No discrete drainable collection. Hospital course 55 yo F with hx of diabetes presents with compaints of suprapubic lump found to have phlegmon on initial pelvic CAT scan with no drainable collection patient was diagnosed to have sepsis due to tachycardia leukocytosis due to worsening of soft tissue swelling of right labia an ultrasound was obtained that showed early developing abscess right labia therefore patient underwent I and D under general anesthesia on 01/18 postprocedure patient has been doing fine with no fevers no pain, blood cultures are negative therefore she is being discharged home on by mouth Augmentin for 5 more days to finish a 10 day course of antibiotic patient has been recommended to remove packing from the wound and continue dry dressing and to have outpatient follow-up with Dr. Loera in 1-2 weeks she is recommended to use warm compresses as well. In regard to diabetes patient has been recommended to follow diabetic diet continue home medications and to have good blood sugar control. Time Spent with Patient Time attestation: Total time spent providing and/or coordinating discharge services: Discharge coordination time: Greater than 30 minutes Quality: Stroke Does the patient have a stroke diagnosis?: No Physical Exam Vital Signs: Vital Signs: Last Vital Signs Temp 98.1 F 01/20/21 03:11 Pulse 69 01/20/21 03:11 Resp 18 01/20/21 03:11 BP 128/79 01/20/21 03:11 Pulse Ox 97 01/20/21 03:11 Body Mass Index 34.7 General resting comfortably in no acute distress. Neck supple no JVD. CVS regular rate rhythm, Respiratory lungs clear to auscultation, no respiratory distress, no wheeze, no rhonchi. Gastrointestinal abdomen soft, nontender, bowel sounds audible Extremities no edema. Right mons pubis right labia, dressing intact noted to have no drainage,no fluctuation Neuro nonfocal ,speech clear. Skin no rash DS: Data Data Completed and Pending Labs on day of discharge: Laboratory Results - last 24 hr 01/19/21 01/19/21 01/19/21 10:53 16:15 20:26 POC Glucose 248 H 164 H 160 H 01/20/21 01/20/21 07:11 10:57 POC Glucose 165 H 203 H Discharge Plan Discharge Patient Disposition: Home, Self-Care Discharge Diagnosis: Right labial abscess Referrals: Clement Lockhart MD [Primary Care Provider] - 1 Week Discharge Medications: New amoxicillin-pot clavulanate [Augmentin] 875-125 mg tablet 1 tab PO BID Qty: 10 RF: 0 Continued atorvastatin 40 mg tablet 1 tab PO BEDTIME RF: 0 metformin 500 mg tablet 1 tab PO DAILY@1400 RF: 0 glipizide 10 mg tablet 1 tab PO BID RF: 0 Discharge Orders: Discharge Order (Routine); Ordered 01/20/21 Ordered By: Andi Dang Diet: diabetic diet Activity on Discharge: As tolerated Stand Alone Forms: Patient Portal Discharge page, Work/School Release Care Plan Goals: Remove packing from abscess tomorrow morning and continue dry dressing daily, can use warm compresses Health Concerns: Follow diabetic diet, take antibiotics as prescribed for 5 more days, keep blood sugars under good control Plan of Treatment: Outpatient follow-up with Dr. Loera in next 1-2 weeks call office to make appointment Assessment: As above
--- NOTE | 2021-01-20 11:51 | MHC.CM.PN ---
caron oquendo n o servcesaúl ordered by
== END 2021-01-20 12:19 | disposition home or self-care (01) | DRG 710 ==
LOC: HO.ED 23:00 → HO.EDOVER 01-15 00:32 → HO.IMC 01-15 00:47
PROVIDERS: Family Medicine; Internal Medicine; Nurse Practitioner Family; Physician Assistant Medical; Surgery; Admitting Provider Internal Medicine; Emergency Provider Emergency Medicine; PCP Internal Medicine; Visit Provider Hospitalist
DX: A41.9 Sepsis, unspecified organism (principal); L02.215 Cutaneous abscess of perineum; L73.9 Follicular disorder, unspecified; E11.9 Type 2 diabetes mellitus without complications; E78.5 Hyperlipidemia, unspecified; Z20.822 Contact with and (suspected) exposure to COVID-19; Z79.84 Long term (current) use of oral hypoglycemic drugs; Z79.899 Other long term (current) drug therapy
CPT/HCPCS: 36415; 72193; 76857; 80048; 80076; 81001; 82009; 82947; 83036; 83605; 85025; 85027; 87040; 87071; 87147; 87205; 87635; 96365; 96375; 99285; J1100; J1885; J2250; J2405; J2543; J3010; Q9967

== ENCOUNTER 2021-07-13 15:28 | Outpatient (REF) | payer BC, SELFPAY ==
[2021-07-13 17:46] LABS: Alanine Aminotransferase 41 U/L (0-31); Albumin Level 4.5 g/dL (3.5-5.0); Alkaline Phosphatase 80 U/L (39-117); Aspartate Amino Transferase 23 U/L (5-31); Bilirubin Direct < 0.2 mg/dL (0.0-0.5); Bilirubin Total 0.3 mg/dL (0.0-1.0); Total Protein 7.5 g/dL (6.5-8.0)
== END 2021-07-13 15:29 | disposition home or self-care (01) ==
LOC: HO.LAB 15:28
PROVIDERS: PCP Internal Medicine; Referring Provider Internal Medicine; Visit Provider Nurse Practitioner Family
DX: Z01.818 Encounter for other preprocedural examination (principal); R74.8 Abnormal levels of other serum enzymes
CPT/HCPCS: 36415; 80076

== ENCOUNTER 2021-08-22 21:03 | Emergency (ER) | payer BC, SELFPAY | END 2021-08-22 22:53 | disposition left against medical advice (07) | PROVIDERS: Emergency Provider Emergency Medicine; PCP Internal Medicine | DX: R68.89 Other general symptoms and signs (principal) ==

== ENCOUNTER 2021-11-09 10:20 | Day surgery (SDC) | payer BC, SELFPAY ==
[2021-11-04 13:55] VITALS: BMI 34.0
--- NOTE | 2021-11-06 10:03 | P.CONAN_ITS ---
Documented by User: Chen De La O NP 11/06/21 10:03 HPI - Anesthesia Eval Consult details Narrative: 55yo F for Colonoscopy [facility] Past Medical History Medical History Diabetes Social History Social History Household Members: Family Housing: House Are you a primary auto care center manager to a significant other at home: No Do you presently have visiting nurse or other home services: No Patient Tobacco Use Status: Former Tobacco user Second Hand Smoke Exposure: No Have you been hit, kicked, punched, or otherwise hurt by someone within the past year? If so, by whom?: No Are you DNR?: No Advance Directives: No Advance Directives Information Provided: Yes Recently lost weight without trying: No Nutrition Risks: No Nutritional Risk Patient : No (menopause last year) Poor oral hygiene: No service: No Current occupational status: employed Meds Allergies Allergy/AdvReac Type Severity Reaction Status Date / Time seafood Allergy Shakiness Verified 07/13/21 15:32 Home Medications Medication Instructions Recorded Confirmed Last Taken Type atorvastatin 40 mg tablet 1 tab PO BEDTIME 01/14/21 01/14/21 01/13/21 History glipizide 10 mg tablet 1 tab PO BID 01/14/21 01/14/21 01/13/21 History metformin 500 mg tablet 1 tab PO DAILY@1400 01/14/21 01/14/21 01/13/21 History Exam Exam Date and Time: November 06, 2021 1003 Height,Weight and Vital Signs: Height 5 ft 2 in Weight 84.368 kg Assessment and Plan Assessment Anesthesia Assessment: Chart Reviewed Documented by User: Meghann Thorne MD 11/09/21 12:04 [facility] Past Medical History Medical History Diabetes Social History Social History Household Members: Family Housing: House Are you a primary auto care center manager to a significant other at home: No Do you presently have visiting nurse or other home services: No Patient Tobacco Use Status: Former Tobacco user Second Hand Smoke Exposure: No Have you been hit, kicked, punched, or otherwise hurt by someone within the past year? If so, by whom?: No Are you DNR?: No Advance Directives: No Advance Directives Information Provided: Yes Recently lost weight without trying: No Nutrition Risks: No Nutritional Risk Patient : No (menopause last year) Poor oral hygiene: No service: No Current occupational status: employed Meds Allergies Allergy/AdvReac Type Severity Reaction Status Date / Time seafood Allergy Shakiness Verified 07/13/21 15:32 Home Medications Medication Instructions Recorded Confirmed Last Taken Type atorvastatin 40 mg tablet 1 tab PO BEDTIME 01/14/21 01/14/21 01/13/21 History glipizide 10 mg tablet 1 tab PO BID 01/14/21 01/14/21 01/13/21 History metformin 500 mg tablet 1 tab PO DAILY@1400 01/14/21 01/14/21 01/13/21 History Exam Airway Mallampati Class: II TM Dist: >3cm Neck ROM: Full Loose/Missing/Broken Teeth: No Heart: RRR Lungs: CTA Assessment and Plan Assessment Anesthesia Assessment: Anesthesia Plan Discussed Final Anesthetic Review NPO: Yes ASA Class: II Final Preanesthetic Review: Meds/Allgs Chart Reviewed, Consent Obtained/Reviewed and Anes Risks/Benef Reviewed Patient Risk: Low Procedure Risk: Low Anesthetic Plan Anesthetic Plan: MAC: Disposition: Standard PACU
[2021-11-09 11:35] VITALS: BP 104/54; PULSE 84; RESP 18; TEMP 36.5; O2SAT 99
[2021-11-09 11:36] VITALS: BMI 34.0
[2021-11-09 11:42] LABS: Glucose, Whole Blood 151 mg/dL (60-115)
[2021-11-09] MEDS: Lactated Ringers 1,000 ML 100 ML IVCONT (11:46)
--- NOTE | 2021-11-09 12:03 | MHC.SHP ---
Pre-Procedural Eval Section A Date of Service: 11/09/21 The patient is an INPATIENT: No The History & Physical has been completed within 30 days and I have reviewed it.: No Section B Chief Complaint: screening Details of Present Illness: Colon cancer screening, intermittent constipation Relevant Family History (Specify if Yes): No Relevant Social History: None Present Medications: see Short Stay Collaborative assessment Medical History: Significant History (Diabetes) History of Previous Operations: No relevant previous surgery Allergies: Allergies Allergy/AdvReac Type Severity Reaction Status Date / Time seafood Allergy Shakiness Verified 07/13/21 15:32 Review of Systems Sugical H&P ROS: Negative: Constitution, Cardiovascular, Respiratory and Gastrointestinal Exam Surgical H&P Exam: Normal: Heart, Normal: Lungs, Normal: Extremities and Normal: Abdomen Plan Diagnosis/Plan: Unchanged I have reviewed the history and physical and performed a pertinent physical examination on my patient. No changes have occurred unless specified.
--- NOTE | 2021-11-09 12:11 | P.OP_ITS ---
Operative Note Operative Note Date of Service: 11/09/21 Narrative: Pre-op diagnosis: Colon cancer screen, intermittent constipation Post-op diagnosis:?other (Diverticulosis, hemorrhoids) Procedure: COLONOSCOPY TILL CECUM Consent: Indications for the procedure and potential complications of bleeding, perforation, reaction to medications and missed diagnosis were discussed with the patient and informed consent was obtained. Instrument: Olympus PCF H 190 L variable stiffness pediatric colonoscope Monitoring: Vital signs and clinical assessment, intermittent blood pressure monitoring, continuous EKG monitoring, Pulse oximetry and Carbon Dioxide monitoring were done throughout the procedure. Colon withdrawl time was 14 minutes. Procedure: The patient was placed in the left lateral decubitis position and pre-procedure medications were administered. After a digital rectal examination of the ano-rectum, the video colonoscope was inserted into the rectum and advanced through the colon to the cecum. The colonoscope was slowly withdrawn in a retrograde panoramic fashion and the colon mucosa was carefully examined including a retroflexed view of the rectum. Findings and interventions are described below. Procedure Difficulty: Without difficulty Findings: Terminal Ileum: Not evaluated Cecum:? Normal Ascending Colon:? Normal Transverse Colon:? Normal Descending Colon:? Normal Sigmoid Colon:? Moderate diverticulosis Rectum:? Normal Ano-rectum:? Moderate internal hemorrhoids Colon preparation:? Good after some irrigation Impression and Post Procedure Diagnosis: Colonoscopy Findings: No polyps were detected Moderate diverticulosis seen in the sigmoid colon Moderate hemorrhoids on retroflexed exam. Plan: Patient has an appointment on 11/15/21 in the GI Clinic with ? Magali Sheth FNP-BC. Repeat Colonoscopy in 8-10 years. Above findings were reviewed with the patient and diverticulosis handout was given in the discharge area Surgeon: Nena Lindsey MD Anesthesia:?MAC (Dr Thorne) Was an Television Announcer used for this Procedure?:?Yes Television Announcer:?Flor Archibald Estimated blood loss (mL):?0 Pathology:?none sent Condition:?stable Disposition:?PACU
[2021-11-09 12:47] VITALS: BP 87/37; PULSE 80; RESP 18; TEMP 36.8; O2SAT 98
[2021-11-09 13:09] VITALS: BP 106/59; PULSE 73; RESP 18; TEMP 36.2; O2SAT 99
== END 2021-11-09 13:50 | disposition home or self-care (01) ==
PROVIDERS: PCP Internal Medicine; Visit Provider Internal Medicine Gastroenterology
PROC: 0DJD8ZZ Inspection of Lower Intestinal Tract, Via Natural or Artificial Opening Endoscopic (ICD-10-PCS; CPT 45378; principal; 2021-11-09 12:00)
DX: Z12.11 Encounter for screening for malignant neoplasm of colon (principal); K59.00 Constipation, unspecified; K57.30 Diverticulosis of large intestine without perforation or abscess without bleeding; K64.8 Other hemorrhoids; K21.9 Gastro-esophageal reflux disease without esophagitis; R74.8 Abnormal levels of other serum enzymes; E11.9 Type 2 diabetes mellitus without complications; Z79.84 Long term (current) use of oral hypoglycemic drugs; Z87.891 Personal history of nicotine dependence
CPT/HCPCS: 45378; 82947

== ENCOUNTER 2021-11-25 13:57 | Outpatient (REF) | payer BC, SELFPAY ==
[2021-11-25 16:12] LABS: Alanine Aminotransferase 37 U/L (0-31); Albumin Level 4.5 g/dL (3.5-5.0); Alkaline Phosphatase 71 U/L (39-117); Aspartate Amino Transferase 25 U/L (5-31); Bilirubin Direct < 0.2 mg/dL (0.0-0.5); Bilirubin Total 0.2 mg/dL (0.0-1.0); Total Protein 7.5 g/dL (6.5-8.0)
== END 2021-11-25 13:58 | disposition home or self-care (01) ==
LOC: HO.LAB 13:57
PROVIDERS: PCP Internal Medicine; Referring Provider Internal Medicine; Visit Provider Nurse Practitioner Family
DX: R74.01 Elevation of levels of liver transaminase levels (principal); K57.90 Diverticulosis of intestine, part unspecified, without perforation or abscess without bleeding; K64.8 Other hemorrhoids; Z98.890 Other specified postprocedural states
CPT/HCPCS: 36415; 80076

== ENCOUNTER 2021-12-17 11:34 | Outpatient (REF) | payer BC, SELFPAY ==
--- NOTE | ~2021-12-17 | MM_ITS ---
EXAMINATION: MM SCREENING DIGITAL BREAST TOMOSYNTHESIS, BILATERAL CLINICAL INFORMATION: Screening. Asymptomatic. The lifetime risk of breast cancer based on the Tyrer-Cuzick Model is 8.4%. COMPARISON: Mammography: None TECHNIQUE: Digital breast tomosynthesis is performed in both the craniocaudal and mediolateral oblique views along with computer-aided detection (CAD). Synthesized 2D images are generated from the tomosynthesis. FINDINGS: The breasts are almost entirely fatty (ACR BI-RADS breast composition Category a). There are no significant masses, abnormal calcifications, or other abnormalities. MM/MM tomosynthesis screening BI IMPRESSION: No mammographic evidence of malignancy. ASSESSMENT: BI-RADS 1: Negative RECOMMENDATION: Routine annual mammography screening. This patient's information was entered into a reminder system with a target due date for their next mammogram.
== END 2021-12-17 11:35 | disposition home or self-care (01) ==
LOC: HO.MAMMO 11:34
PROVIDERS: PCP Internal Medicine; Visit Provider Internal Medicine
DX: Z12.31 Encounter for screening mammogram for malignant neoplasm of breast (principal)
CPT/HCPCS: 77063; 77067

== ENCOUNTER 2021-12-19 08:19 | Outpatient (REF) | payer BC, SELFPAY ==
[2021-12-19 09:46] LABS: Alanine Aminotransferase 43 U/L (0-31); Albumin Level 4.3 g/dL (3.5-5.0); Alkaline Phosphatase 73 U/L (39-117); Anion Gap 14 (12-20); Aspartate Amino Transferase 27 U/L (5-31); Bilirubin Direct 0.2 mg/dL (0.0-0.5); Bilirubin Total 0.6 mg/dL (0.0-1.0); Blood Urea Nitrogen 17 mg/dL (9-16); Calcium 10.1 mg/dL (8.4-10.2); Carbon Dioxide 26 mmol/L (22-29); Chloride 105 mmol/L (96-108); Cholesterol 206 mg/dL; Estimated Glomerular Filt Rate > 60; Glucose Random 241 mg/dL (60-115); HDL Cholesterol 54 mg/dL; LDL Cholesterol Calculated 132 mg/dl; Sodium 140 mmol/L (135-145); Total Protein 7.3 g/dL (6.5-8.0); Triglycerides 101 mg/dL
[2021-12-19 09:53] LABS: Estimated Average Glucose 169 mg/dL; Hemoglobin A1c % 7.5 %
[2021-12-19 09:58] LABS: Creatinine Urine 34.61 mg/dL; Microalbum/Creatinine Ratio Ur 17.3 ug/mg cr
[2021-12-19 10:08] LABS: TSH reflex Free T4 3.53 uIU/mL (0.32-4.0)
[2021-12-21 04:12] LABS: ~HepC Num1 0.08 S/CO (0.00-0.79); ~Hepatitis C Antibody Nonreactive (Nonreactive)
== END 2021-12-19 08:20 | disposition home or self-care (01) ==
LOC: HO.LAB 08:19
PROVIDERS: PCP Internal Medicine; Visit Provider Internal Medicine
DX: E11.9 Type 2 diabetes mellitus without complications (principal)
CPT/HCPCS: 36415; 80048; 80061; 80076; 82043; 83036; 84443; 86803

== ENCOUNTER 2023-02-13 08:57 | Emergency (ER) | payer OTHER, SELFPAY ==
--- NOTE | ~2023-02-13 | XR_ITS ---
EXAMINATION: XR SHOULDER, LEFT CLINICAL INFORMATION: Fall. Abnormal humerus x-ray COMPARISON: Left humerus 02/13/2023 TECHNIQUE: AP external rotation, Grashey, scapular Y, and axillary views of the left shoulder. FINDINGS: There is mild inferior subluxation of humeral head in relation to glenoid but no acute fracture or dislocation. The AC joint appears unremarkable. There is no soft tissue swelling or calcification. XR/XR shoulder LT min 2V IMPRESSION: Slightly inferior subluxed humeral head in relation to the glenoid. This finding can be seen with partial or complete rotator cuff tear. No other abnormality seen. No change from early left humerus exam 02/13/2023
--- NOTE | ~2023-02-13 | XR_ITS ---
EXAMINATION: XR ELBOW, LEFT CLINICAL INFORMATION: Postreduction film COMPARISON: Forearm radiographs 02/13/2023 TECHNIQUE: AP, lateral, and oblique views of the left elbow. FINDINGS: Interval reduction of the previously seen elbow dislocation. Persistent elbow effusion. No definite fracture appreciated however given the elbow effusion a radiographically occult fracture would be difficult to exclude, and the most common location would be the radial head. Soft tissue swelling. XR/XR elbow LT 2V IMPRESSION: Interval reduction of the previously seen elbow dislocation. Persistent elbow effusion. No definite fracture appreciated however given the elbow effusion. Radiographically occult fracture would be difficult to exclude, and the most common location would be the radial head. Consider short interval follow-up repeat radiographs in 2 weeks to assess for any interval healing.
--- NOTE | ~2023-02-13 | XR_ITS ---
EXAMINATION: X-ray left forearm X-ray left humerus CLINICAL INFORMATION: Pain and swelling COMPARISON: None TECHNIQUE: Humerus 2 views . Forearm 4 views. FINDINGS: Humerus: The humeral head articulates the glenoid. On the second view, there appears be inferior positioning of the humeral head with respect to glenoid, which could be related to technique/positioning versus inferior subluxation. Acromioclavicular joint is intact. There is a dislocation of elbow joint. The distal humerus is obscured by overlapping osseous structures. No acute fracture is identified in the more proximal portion of the humerus. Elbow: There is elbow joint displacement. The radius and ulna are laterally and posteriorly displaced with respect to the humerus. Evaluation of the proximal radius and ulna, and the distal portion of the humerus is limited by overlapping densities. The more distal aspect of the radius and ulna appear intact. There is soft tissue swelling of the distal humerus and forearm, with subcutaneous edema. Articulation of the wrist joint grossly appears maintained. XR/XR humerus LT IMPRESSION: 1. Marked elbow joint dislocation, with marked lateral and posterior dislocation of the radius and ulna with respect to the distal humerus. Evaluation for fracture from the elbow joint is limited due to overlapping densities. Recommend dedicated elbow radiographs of further evaluation. 2. Soft tissue swelling subcutaneous edema the distal humerus and forearm. 3. Question inferior subluxation of the humeral head with respect to the glenoid on one of the views. Dedicated shoulder radiographs of further evaluation as clinically warranted.
--- NOTE | ~2023-02-13 | CT_ITS ---
EXAM: CT HEAD WITHOUT CONTRAST CT CERVICAL SPINE INDICATION: Reason for Exam fall, hit head TECHNIQUE: A noncontrast CT scan was performed from the skull base to the vertex. A noncontrast CT scan of the cervical spine was performed from the base of the skull through T1 at 2.5 mm and 0.625 mm collimation. Coronal and sagittal reformats were obtained at the acquisition workstation. This CT examination was performed using dose optimization techniques as appropriate, variously including the following: * Automated exposure control * Adjustment of mA and/or kV according to patient size (this includes techniques or standardized protocols for targeted exams where dose is matched to indication/reason for exam; i.e. extremities or head) * Use of iterative reconstruction technique Dose length product is tolerating mGy-cm. COMPARISON: None FINDINGS: Head: There is no evidence of acute intracranial hemorrhage or territorial infarction. No abnormal mass effect or midline shift is seen. Herndon to white matter differentiation is well preserved. No extra-axial fluid collections are identified. The ventricles are normal in size. No abnormal attenuation in the brain parenchyma. No acute calvarial fracture.. Paranasal sinuses and mastoid air cells are well-aerated. Cervical Spine: The atlantooccipital and atlantoaxial articulations remain well aligned. Straightening of the normal cervical lordosis. Otherwise, there is anatomic alignment of the vertebral bodies and posterior elements. No evidence of acute fracture or subluxation. The vertebral bodies and posterior elements are normal. The disc spaces are preserved. Bony canal is maintained.. No prevertebral soft tissue swelling. The paraspinal soft tissues are unremarkable. The thyroid gland is unremarkable. The visualized lung apices are clear. CT/CT cervical spine wo IV con IMPRESSION: No CT evidence of acute intracranial hemorrhage or territorial infarction. No CT evidence of acute cervical spine fracture or dislocation.
--- NOTE | ~2023-02-13 | XR_ITS ---
EXAMINATION: X-ray left forearm X-ray left humerus CLINICAL INFORMATION: Pain and swelling COMPARISON: None TECHNIQUE: Humerus 2 views . Forearm 4 views. FINDINGS: Humerus: The humeral head articulates the glenoid. On the second view, there appears be inferior positioning of the humeral head with respect to glenoid, which could be related to technique/positioning versus inferior subluxation. Acromioclavicular joint is intact. There is a dislocation of elbow joint. The distal humerus is obscured by overlapping osseous structures. No acute fracture is identified in the more proximal portion of the humerus. Elbow: There is elbow joint displacement. The radius and ulna are laterally and posteriorly displaced with respect to the humerus. Evaluation of the proximal radius and ulna, and the distal portion of the humerus is limited by overlapping densities. The more distal aspect of the radius and ulna appear intact. There is soft tissue swelling of the distal humerus and forearm, with subcutaneous edema. Articulation of the wrist joint grossly appears maintained. XR/XR forearm LT 2V IMPRESSION: 1. Marked elbow joint dislocation, with marked lateral and posterior dislocation of the radius and ulna with respect to the distal humerus. Evaluation for fracture from the elbow joint is limited due to overlapping densities. Recommend dedicated elbow radiographs of further evaluation. 2. Soft tissue swelling subcutaneous edema the distal humerus and forearm. 3. Question inferior subluxation of the humeral head with respect to the glenoid on one of the views. Dedicated shoulder radiographs of further evaluation as clinically warranted.
[2023-02-13 09:07] VITALS: BP 132/78; PULSE 114; RESP 16; TEMP 36.1; O2SAT 100; BMI 36.6
--- NOTE | 2023-02-13 09:43 | ED_ITS ---
HPI - Extremity Problem General Chief complaint: Extremity Injury, Upper Stated complaint: L arm pain Time Seen by Provider: 02/13/23 09:08 Source: patient Mode of arrival: ambulatory Limitations: no limitations History of Present Illness HPI Narrative: 57-year-old female with a history of diabetes, [id number] here with complaints of left elbow pain after a slip and fall yesterday and water. Patient reports she did have a head strike but denies any loss of conscious. No AC therapy use. She denies headache, nausea, vomiting, dizziness, neck pain. She is complaining of left elbow pain with difficulty with range of motion. No associated numbness, tingling or weakness of the extremity. She did have coffee this morning but denies any additional p.o. intake Related Data Home Medications Medication Instructions Recorded Confirmed atorvastatin 40 mg tablet 1 tab PO BEDTIME 01/14/21 01/14/21 glipizide 10 mg tablet 1 tab PO BID 01/14/21 01/14/21 metformin 500 mg tablet 1 tab PO DAILY@1400 01/14/21 01/14/21 empagliflozin 25 mg tablet 25 mg PO QAM 11/25/21 (Jardiance) metformin 1,000 mg tablet 1,000 mg PO BID 11/25/21 Previous Rx's Medication Instructions Recorded docusate sodium 100 mg capsule 100 mg PO BEDTIME #90 caps 11/25/21 methylcellulose (laxative) 500 mg 500 mg PO DAILY #90 tabs 11/25/21 tablet (Citrucel) oxycodone 5 mg tablet 5 mg PO Q6H PRN pain #12 tabs 02/13/23 Allergies Allergy/AdvReac Type Severity Reaction Status Date / Time seafood Allergy Shakiness Verified 11/25/21 14:16 Review of Systems Review of Systems: Yes all other systems are reviewed and are negative Constitutional: Constitutional: Reports no additional constitutional complaints, Denies body ache(s), Denies chills, Denies fever(s), Denies headache(s) and Denies weakness Eyes: Eyes: Reports no additional eye complaints and Denies change in vision ENT: Reports system reviewed and no additional complaints, except as documented, Denies dizziness, Denies headache(s), Denies nasal congestion, Denies nasal discharge and Denies neck pain Cardiovascular: Cardiovascular: Reports no additional cardiovascular complaints, Denies chest pain, Denies leg edema and Denies dyspnea Respiratory: Respiratory: Reports no additional respiratory complaints, Denies cough and Denies dyspnea Gastrointestinal: Gastrointestinal: Reports no additional gastrointestinal complaints, Denies abdominal pain, Denies diarrhea, Denies nausea and Denies vomiting Genitourinary: Genitourinary: Reports no additional female genitourinary complaints and Denies urinary incontinence Musculoskeletal: Musculoskeletal: Reports no additional musculoskeletal complaints, Denies back pain, Reports arthralgias, Reports joint swelling, Reports limited range of motion, Denies neck pain, Denies numbness and Denies tingling Integumentary/Breasts: Skin/Breast: Reports system reviewed and no additional complaints, except as docu and Denies rash Neurologic: Reports system reviewed and no additional complaints, except as documented, Denies Abnormal speech present, Denies dizziness, Denies headache(s), Denies numbness, Denies tingling and Denies weakness PMFSH Past Medical History Attestation statement: The following information was validated with the patient. Source: old records reviewed and nursing notes reviewed Medical History Diabetes Diverticulosis Surgical History Hx of colonoscopy Family History Family History Mother Diabetes Father Prostate cancer HTN (hypertension) Paternal Grandfather Prostate cancer Paternal Uncle Prostate cancer Social History Social History Household Members: Family Housing: House Are you a primary summer child caregiver to a significant other at home: No Do you presently have visiting nurse or other home services: No Patient Tobacco Use Status: Former Tobacco user Smoked in Last 30 Days: No Second Hand Smoke Exposure: No Use of substances other than those prescribed or required for medical reasons: No Advance Directives: No Advance Directives Information Provided: Yes service: No Current occupational status: employed Physical Exam Vital Signs: Vital Signs: Last Vital Signs Temp 96.9 F 02/13/23 09:07 Pulse 108 H 02/13/23 14:15 Resp 18 02/13/23 14:15 BP 121/60 02/13/23 14:15 Pulse Ox 100 02/13/23 14:15 O2 Del Method Room Air 02/13/23 14:15 BMI result Body Mass Index 36.6 Const: General: cooperative, healthy appearing, comfortable and no acute distress Orientation/consciousness: patient oriented x3 Limitations: no limitations HEENT: Head: Yes normal to inspection, No Scott's sign and No raccoon eyes Head images: 1. Abrasion Ears: hearing grossly normal bilaterally and TM's normal bilaterally General nose exam: Normal external nose present Face and sinus: Yes normal facial exam Mouth: Normal oral and palatal mucosa present Throat: Yes posterior oropharynx normal Eyes: General: appearance normal, both eyes and all related structures Pupils: Equal, round and reactive pupils present Neck: Other: No cervical midline tenderness, step-offs deformities Neck: Yes normal visual inspection Chest: Chest palpation & inspection: normal inspection of the chest Resp: Effort & Inspection: normal respiratory effort Auscultation: clear to auscultation bilaterally Cardio: Rate: regular rate Rhythm: regular rhythm Peripheral pulses: Peripheral pulses 2+ throughout GI: Inspection: Yes normal to inspection Palpation (GI): Soft to palpation and nontender Auscultation: normal bowel sounds Back/Spine/Pelvis: Thoracic/Lumbar Spine: thoracic and lumbar spine normal to inspection Skin: General skin exam: no rashes or lesions noted Neuro: General: patient oriented x3, moves all extremities, no focal motor deficits and normal sensation to monofilament Cranial nerves: Yes CN's II-XII intact bilaterally, Yes Equal, round and reactive pupils present, Yes Bilaterally intact EOM present, Yes Nystagmus not present, Yes Normal facial strength present and Yes Midline tongue present Cognition (Neuro): normal cognition Speech: No Abnormal speech present Gait exam (Neuro): Normal gait present Motor exam (neuro): 5/5 motor strength present throughout Sensory Exam: Normal double simultaneous stimulation for sensation Extrem: Other: There is swelling to the left lateral elbow with limited extension due to pain. There is a palpable deformity. There are normal radial and ulnar pulses distally. Sensation is intact distally. Course Course Course Narrative: 1145-There was concern on independent interpretation of the left shoulder that it may be dislocated. This was discussed with my attending Dr Mark. We manipulated the shoulder and performed passive ROM with no difficulty. Doubt di slocation. See procedure note for elbow reduction. Will obtain post reduction films. Patient placed in sling Reevaluation(s) Reevaluation #1: 4657-Patient had a few low blood pressues post versed although was alert and oriented x 3 the whole time. She received one liter of NS and had some PO with normalized blood pressures. She was up and ambulatory to the bathroom with no complaints. We did keep her a bit longer and made sure she had serial normal blood pressures. She will be discharged home in the care of family with ortho f/u. Medications Administered Discontinued Medications Generic Name Dose Route Start Last Admin Trade Name Freq PRN Reason Stop Dose Admin Diphtheria/Tetanus/Acell Pertussis 0.5 ml 02/13/23 09:55 02/13/23 10:05 Diphth,Pertus(Acell),Tet Adult 0.5 Ml Syringe IM 02/13/23 09:56 0.5 ml .ONCE ONE Administration Sodium Chloride 1,000 mls @ 999 mls/hr 02/13/23 12:36 02/13/23 14:15 Ns IV 02/13/23 13:36 Infused .Q1H1M STA Infusion Ketorolac Tromethamine 30 mg 02/13/23 14:17 02/13/23 14:20 Ketorolac Tromethamine 30 Mg/Ml Vial IVPUSH 02/13/23 14:18 30 mg ONCE ONE Administration Lidocaine HCl 2 ml 02/13/23 11:33 02/13/23 11:45 Lidocaine Hcl 2% 2 Ml Vial SUBCUT 02/13/23 11:34 2 ml ONCE ONE Administration Lidocaine HCl 2 ml 02/13/23 11:33 02/13/23 11:44 Lidocaine Hcl 2% 2 Ml Vial SUBCUT 02/13/23 11:34 2 ml ONCE ONE Administration Lidocaine HCl 2 ml 02/13/23 11:34 02/13/23 11:44 Lidocaine Hcl 2% 2 Ml Vial SUBCUT 02/13/23 11:35 2 ml ONCE ONE Administration Lidocaine HCl 2 ml 02/13/23 11:34 02/13/23 11:44 Lidocaine Hcl 2% 2 Ml Vial SUBCUT 02/13/23 11:35 2 ml ONCE ONE Administration Lidocaine HCl 2 ml 02/13/23 11:34 02/13/23 11:44 Lidocaine Hcl 2% 2 Ml Vial SUBCUT 02/13/23 11:35 2 ml ONCE ONE Administration Midazolam HCl 1 mg 02/13/23 11:27 02/13/23 11:45 Midazolam Hcl/Pf 2 Mg/2 Ml Vial IVPUSH 02/13/23 11:28 1 mg ONCE ONE Administration Morphine Sulfate 4 mg 02/13/23 09:36 02/13/23 10:06 Morphine Sulfate 4 Mg/Ml Cartridge IVPUSH 02/13/23 09:37 4 mg ONCE ONE Administration Protocol Ondansetron HCl 4 mg 02/13/23 09:36 02/13/23 10:05 Ondansetron Hcl 4 Mg/2 Ml Vial IVPUSH 02/13/23 09:37 4 mg ONCE ONE Administration Medical Decision Making Medical Decision Making [facility] Narrative: This is a 57-year-old female who had a mechanical fall last evening with a head strike who presents to the ER with complaints of left elbow pain and limited range of motion due to pain. On exam patient has an abrasion to the forehead. She has normal neurological exam with no focal deficits. She has a palpable deformity to the left elbow. Initial x-rays are concerning for dislocation. She has CMS which is intact distally. Patient will likely need conscious sedation and reduction of the dislocation. Therefore I will obtain CT head and CT cervical spine. Patient will have an IV placed and given analgesia pending additional imaging Differential Diagnosis Differential Diagnoses: The differential diagnosis associated with the presentation includes Fracture, dislocation, low concern for vascular injury Consult Healthcare Provider Management of the patient was discussed with: [facility] [employer] CONRAD Linder Independent Interpretation I performed an independent interpretation of an: Plain X-Ray and CT Scan Interpretation: I independently reviewed the CT scan agree with radiologist's report I independently reviewed the x-ray and agree with radiologist's report Radiology Impression Discussion of test interpretation with radiology: I have reviewed the radiologist's reading. Radiologist Impression: FINDINGS: Head: There is no evidence of acute intracranial hemorrhage or territorial infarction. No abnormal mass effect or midline shift is seen. Herndon to white matter differentiation is well preserved. No extra-axial fluid collections are identified. The ventricles are normal in size. No abnormal attenuation in the brain parenchyma. No acute calvarial fracture.. Paranasal sinuses and mastoid air cells are well-aerated. ? ?Cervical Spine: The atlantooccipital and atlantoaxial articulations remain well aligned. Straightening of the normal cervical lordosis. Otherwise, there is anatomic alignment of the vertebral bodies and posterior elements. No evidence of acute fracture or subluxation. The vertebral bodies and posterior elements are normal. The disc spaces are preserved. Bony canal is maintained..? No prevertebral soft tissue swelling. The paraspinal soft tissues are unremarkable. The thyroid gland is unremarkable. The visualized lung apices are clear. CT/CT head/brain wo IV con IMPRESSION: No CT evidence of acute intracranial hemorrhage or territorial infarction. ? No CT evidence of acute cervical spine fracture or dislocation. [address] [address] XRay Report Signed Patient: Lupe Woodruff MR#: [id number] : 1965 Acct:[id number] Age/Sex: 57 / F ADM Date: 02/13/23 Loc: HO.ED Attending Dr: Ordering Physician: Meghann Mark MD Date of Service: 02/13/23 Procedure(s): XR forearm LT 2V Accession Number(s): [id number] cc: Meghann Mark MD~ EXAMINATION: X-ray left forearm X-ray left humerus CLINICAL INFORMATION: Pain and swelling COMPARISON: None TECHNIQUE: Humerus 2 views . Forearm 4 views. FINDINGS: Humerus: The humeral head articulates the glenoid. On the second view, there appears be inferior positioning of the humeral head with respect to glenoid, which could be related to technique/positioning versus inferior subluxation. Acromioclavicular joint is intact. There is a dislocation of elbow joint. The distal humerus is obscured by overlapping osseous structures. No acute fracture is identified in the more proximal portion of the humerus. Elbow: There is elbow joint displacement. The radius and ulna are laterally and posteriorly displaced with respect to the humerus. Evaluation of the proximal radius and ulna, and the distal portion of the humerus is limited by overlapping densities. The more distal aspect of the radius and ulna appear intact. There is soft tissue swelling of the distal humerus and forearm, with subcutaneous edema. Articulation of the wrist joint grossly appears maintained. XR/XR forearm LT 2V IMPRESSION: ? 1. Marked elbow joint dislocation, with marked lateral and posterior dislocation of the radius and ulna with respect to the distal humerus. Evaluation for fracture from the elbow joint is limited due to overlapping densities. Recommend dedicated elbow radiographs of further evaluation. ? 2. Soft tissue swelling subcutaneous edema the distal humerus and forearm. ? 3. Question inferior subluxation of the humeral head with respect to the glenoid on one of the views. Dedicated shoulder radiographs of further evaluation as clinically warranted. FINDINGS: There is mild inferior subluxation of humeral head in relation to glenoid but no acute fracture or dislocation. The AC joint appears unremarkable. There is no soft tissue swelling or calcification.? XR/XR shoulder LT min 2V IMPRESSION: Slightly inferior subluxed humeral head in relation to the glenoid. This finding can be seen with partial or complete rotator cuff tear. No other abnormality seen. No change from early left humerus exam 02/13/[address] [address] XRay Report Signed Patient: Lupe Woodruff MR#: [id number] : 1965 Acct:[id number] Age/Sex: 57 / F ADM Date: 02/13/23 Loc: .ED Attending Dr: Ordering Physician: Elizabeth Landry NP Date of Service: 02/13/23 Procedure(s): XR elbow LT 2V Accession Number(s): [id number] cc: Elizabeth Landry NP~ EXAMINATION: XR ELBOW, LEFT CLINICAL INFORMATION: Postreduction film? COMPARISON: Forearm radiographs 02/13/2023? TECHNIQUE: AP, lateral, and oblique views of the left elbow. FINDINGS: Interval reduction of the previously seen elbow dislocation. Persistent elbow effusion. No definite fracture appreciated however given the elbow effusion a radiographically occult fracture would be difficult to exclude, and the most common location would be the radial head. Soft tissue swelling. XR/XR elbow LT 2V IMPRESSION: Interval reduction of the previously seen elbow dislocation. Persistent elbow effusion. No definite fracture appreciated however given the elbow effusion. Radiographically occult fracture would be difficult to exclude, and the most common location would be the radial head. Consider short interval follow-up repeat radiographs in 2 weeks to assess for any interval healing. ? Procedures Orthopedic Joint Reduction Joint #1: Time Out Performed: Yes Side: left Joint Reduction Location: elbow Analgesia: hematoma block and other (1mg versed IV) Local Anesthesia: lidocaine 2% Amount of anesthesic used (mL): 5 Technique used: traction/counter-traction Post-reduction neuro exam: intact Post-reduction vascular: intact Post Reduction X-Ray Obtained: Yes Post Reduction X-Ray Results: reduced Splint Applied: Yes (sling) Patient Tolerated Procedure: well Discharge Plan Discharge Clinical Impression: Dislocation of elbow, Inferior subluxation of humerus Patient Disposition: Home, Self-Care Instructions: Elbow Dislocation (ED), Shoulder Pain (ED) Additional Instructions: Sling for comfort Ice to the affected areas Call orthopedics tomorrow for follow-up Your shoulder x-ray shows that you may have a rotator cuff tear Prescriptions: New oxycodone 5 mg tablet 5 mg PO Q6H PRN (Reason: pain) Qty: 12 0RF Rx Instructions: Partial Fill upon patient request. No Action atorvastatin 40 mg tablet 1 tab PO BEDTIME metformin 500 mg tablet 1 tab PO DAILY@1400 glipizide 10 mg tablet 1 tab PO BID Jardiance 25 mg tablet 25 mg PO QAM metformin 1,000 mg tablet 1,000 mg PO BID docusate sodium 100 mg capsule 100 mg PO BEDTIME Qty: 90 3RF Citrucel 500 mg tablet 500 mg PO DAILY Qty: 90 4RF Rx Instructions: take it with full glass of water [place] [facility] [place] [facility] [place] Group] - 1 week
[2023-02-13] MEDS: Diphth,Pertus(ACell),Tet Adult 0.5 ML SYRINGE IM (10:05)
[2023-02-13] MEDS: ondansetron HCL 4 MG/2 ML VIAL IVPUSH (10:05)
[2023-02-13] MEDS: Morphine Sulfate 4 MG/ML CARTRIDGE IVPUSH (10:06)
--- NOTE | 2023-02-13 10:11 | PC.NURSE ---
medicated per provider order, provided with WILL for tdap immunization.
[2023-02-13 11:19] VITALS: BP 103/57; PULSE 104; RESP 16; O2SAT 98
[2023-02-13 11:45] VITALS: BP 119/43; PULSE 103; RESP 16; O2SAT 98
[2023-02-13] MEDS: Midazolam HCl/PF 2 MG/2 ML VIAL 1 MG IVPUSH (11:45)
--- NOTE | 2023-02-13 11:47 | PC.NURSE ---
Local anesthetic to left elbow and Versed given. Dr Mark and Elizabeth [employer] to bedside for reduction. Awaiting post reduction xray. VSS> pt states pain persist 05/08 however eyes closed.
[2023-02-13] MEDS: 0.9 % Sodium Chloride 1,000 ML 999 ML IV (12:38)
--- NOTE | 2023-02-13 12:40 | PC.NURSE ---
BP 89/38. Provider aware with new orders for fluids. Patient alert and responsive states pain 8/10 but resting comfortably with arm in sling. Denies lightheadedness or dizziness.
[2023-02-13 12:41] VITALS: BP 89/46; PULSE 96; RESP 18; O2SAT 98
--- NOTE | 2023-02-13 13:11 | PC.NURSE ---
repeat bP 96/51, patient denies being dizzy or lightheaded.
[2023-02-13 13:31] VITALS: BP 80/38; PULSE 108; RESP 20; O2SAT 100
[2023-02-13 14:15] VITALS: BP 121/60; PULSE 108; RESP 18; O2SAT 100
[2023-02-13] MEDS: Ketorolac Tromethamine 30 MG/ML VIAL IVPUSH (14:20)
== END 2023-02-13 15:33 | disposition home or self-care (01) ==
PROVIDERS: Emergency Provider Student in an Organized Health Care Education/Training Program
DX: S53.025A Posterior dislocation of left radial head, initial encounter (principal); S43.032A Inferior subluxation of left humerus, initial encounter; S00.81XA Abrasion of other part of head, initial encounter; W01.0XXA Fall on same level from slipping, tripping and stumbling without subsequent striking against object, initial encounter; E11.9 Type 2 diabetes mellitus without complications; Z79.02 Long term (current) use of antithrombotics/antiplatelets; Z79.84 Long term (current) use of oral hypoglycemic drugs; Z79.899 Other long term (current) drug therapy; Y93.9 Activity, unspecified; Y92.9 Unspecified place or not applicable; Y99.9 Unspecified external cause status
CPT/HCPCS: 24605; 24620; 70450; 72125; 73030; 73060; 73070; 73090; 90471; 90715; 96361; 96374; 96375; 99284; J1885; J2250; J2270; J2405

== ENCOUNTER → 2023-03-03 10:59 | Outpatient (BNVA) | payer OTHER, SELFPAY | PROVIDERS: Visit Provider Physician Assistant ==

== ENCOUNTER 2023-03-28 13:00 | Outpatient (RCR) | payer OTHER, SELFPAY ==
--- NOTE | 2023-03-16 14:52 | MHC.OT.EP ---
[address] [phone] Occupational Therapy Plan of Care Patient Name: Lupe Woodruff Date of Evaluation: 03/16/23 Diagnosis: DISPLACED FRACTURE OF MEDIAL EPICONDYLE Pain Location: PAINFREE AT REST 5/10 WITH LIFTING >5 POUNDS L MEDIAL AND DORSAL ELBOW, RADIATES TO DORSAL WRIST Pain Score: 0-5/10 Pain Scale Used: Numeric (0 - 10) Aggravating Factors: LIFTING >5 POUNDS, HOUSEHOLD TASKS Alleviating Factors: TAKING TYLENOL, ICING, ICY-HOT TYPE OF CREAM WEARING SLING IN COMMUNITY Assessment: MS WOODRUFF IS 4.5 WEEKS S/P FRACTURE OF MEDIAL EPICONDYLE FROM A FALL. SHE IS CURRENTLY ONLY WEARING A SLING IN THE COMMUNITY. SHE HAS EMERGING ABILITY TO PERFORM ADLs AND LIGHT IADLs, Pt IS RIGHT HAND DOMINANT. SHE HAS TROUBLE LIFTING GREATER THAN FIVE POUNDS. 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 SHE STATES A 34% LIMITATION PER THE QUICK DASH ASSESSMENT. ONGOING SKILLED OT IS WARRANTED TO ADDRESS THE AREAS MENTIONED BELOW. 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 Thank you once again for your referral.
--- NOTE | 2023-04-11 13:22 | MHC.OT.DC ---
[address] [phone] F: [phone] Occupational Therapy Discharge Note Patient Name: Lupe Woodruff Provider: Mer Kowalski Diagnosis: DISPLACED FRACTURE OF MEDIAL EPICONDYLE Date of Surgery: Date of Evaluation: 03/16/23 Date of Discharge: 04/11/23 Treatments to Date: 2 Cancellations to Date: 0 No Shows to Date: 2 Discharge Summary: MS WOODRUFF HAD REPORTED IMPROVEMENT IN HER PAIN AND PARASTHESIA. SHE WAS IND WITH HER HEP AND PROGRESSED TO LIGHT STRENGTHENING. Pt WILL BE DISCHARGED TO A HOME BASED PROGRAM AFTER SHE FAILED TO FOLLOW UP FOR HER LAST TWO APPOINTMENTS. D/C OT Electronically Signed By: TOREY BYRD OTR/L Reviewed/agree with student documentation: N/A Therapist: Please Sign and return to therapist, thank you for your referral.
== END 2023-04-11 13:20 | disposition home or self-care (01) ==
LOC: HO.OT 13:00
PROVIDERS: PCP Internal Medicine; Visit Provider Physician Assistant
DX: S42.442D Displaced fracture (avulsion) of medial epicondyle of left humerus, subsequent encounter for fracture with routine healing (principal)
CPT/HCPCS: 97110; 97166

== ENCOUNTER 2023-10-01 08:08 | Outpatient (REF) | payer OTHER, SELFPAY ==
[2023-10-01 08:38] LABS: MANUAL DIFF FLAG NO
[2023-10-01 09:14] LABS: Basophils Absolute Auto 0.1 X10*3/uL (0.0-0.2); Basophils Percent Auto 0.7 % (0-2); Eosinophils Absolute Auto 0.2 X10*3/uL (0.0-0.4); Eosinophils Percent Auto 2.5 % (0-4); Hematocrit 45.3 % (37.0-47.0); Hemoglobin 14.2 g/dl (12.0-16.0); Imm Gran Abs Auto 0.03 X10*3/uL (0.00-0.03); Imm Gran Pct Auto 0.3 % (0.0-0.4); Lymphocytes Absolute Auto 3.3 X10*3/uL (1.2-4.9); Lymphocytes Percent Auto 33.9 % (20-40); Mean Corpuscular HGB Conc 31.3 g/dl (31.0-35.0); Mean Corpuscular Hemoglobin 27.5 pg (27.0-33.0); Mean Corpuscular Volume 87.8 fL (80.0-98.0); Mean Platelet Volume 11.5 fL (9.4-12.3); Monocytes Absolute Auto 0.5 X10*3/uL (0.1-1.2); Monocytes Percent Auto 5.3 % (2-11); Neutrophils Absolute Auto 5.6 x10*3/uL (2.0-8.3); Neutrophils Percent Auto 57.3 % (45-73); Platelet Count 285 X10*3/uL (160-400); Red Blood Count 5.16 X10*6/uL (4.20-5.50); Red Cell Distribution Width 13.7 % (11.0-16.0); White Blood Count 9.7 X10*3/uL (4.8-10.8)
[2023-10-01 10:18] LABS: Alanine Aminotransferase 18 U/L (0-31); Albumin Level 4.5 g/dL (3.5-5.0); Alkaline Phosphatase 62 U/L (39-117); Anion Gap 14 (12-20); Aspartate Amino Transferase 18 U/L (5-31); Bilirubin Total 0.3 mg/dL (0.0-1.0); Blood Urea Nitrogen 13 mg/dL (9-16); Calcium 10.3 mg/dL (8.4-10.2); Carbon Dioxide 24 mmol/L (22-29); Chloride 107 mmol/L (96-108); Cholesterol 121 mg/dL (<200); Estimated Glomerular Filt Rate > 60; Glucose Random 211 mg/dL (60-115); HDL Cholesterol 45 mg/dL (>40); LDL Cholesterol Calculated 56 mg/dL (<100); Sodium 140 mmol/L (135-145); Total Protein 7.7 g/dL (6.5-8.0); Triglycerides 104 mg/dL (<150)
[2023-10-01 10:20] LABS: TSH reflex Free T4 1.97 uIU/mL (0.32-4.0)
== END 2023-10-01 08:09 | disposition home or self-care (01) ==
LOC: HO.LAB 08:08
PROVIDERS: PCP Internal Medicine; Visit Provider Internal Medicine
DX: E11.65 Type 2 diabetes mellitus with hyperglycemia (principal)
CPT/HCPCS: 36415; 80053; 80061; 84443; 85025

== ENCOUNTER 2024-12-18 06:56 | Outpatient (REF) | payer OTHER, SELFPAY ==
--- OUTSIDE RECORDS SUMMARY | 2024-12-18 06:59 | XMS_ITS | Encounter Summary ---
Author Organization [facility] Address [address] [place] [address] Care Team Providers Care Bill Hiker Name Role Phone Clement Lockhart MD Primary Care Prov ider Encounter Details Date Type Department Care Team (Late st Contact Info) Description 01/05/2024 Orders Only [facility] [address] [place] [address] Clement Lockhart MD [address] [place] [address] Social History Tobacco Use Types Packs/Day Years Used Date Smoking Tobacco: Never Passive Smoke Exposure: Never Smokeless Tobacco: Never Alcohol Use Standard Drinks/Week Comments Never 0 (1 standard drink = 0.6 oz pur e alcohol) Depression Answer Date Recorded Patient Health Questionnaire-9 Score 0 09/05/2023 Patient Health Questionnaire-9 Score 0 09/05/2023 Last PHQ-9: Questionnaire Data Not on file 0 09/05/2023 Housing Stability Answer Date Recorded What is your housing situation today? I have diego xiao 09/05/[address] you li ve. Do you have problems with any of the following? None of the above 09/05/2023 Food Insecurity Answer Date Recorded Within the past 12 months, y ou worried that your food would run out before you got money to buy more: Never True 09/05/2023 Within the past 12 months,th e food you bought just didn't last and you didn't have enough money to get more: Never True 03/2024 Transportation Answer Date Recorded In the past 12 months, has l ack of transportation kept you from medical appts, meetings, work or from getting things needed for daily living? No 09/05/2023 Utilities Answer Date Recorded In the past 12 months, has t he electric, gas, oil or water company threatened to shut off services in your home? No 09/05/2023 Depression Answer Date Recorded Patient Health Questionnaire-2 Score 0 09/05/2023 Comments Unknown Sex and Gender Information Value Date Recorded Sex Assigned at Female 06/28/2022 10:20 AM EDT Legal Sex Female 10:20 AM EDT Gender Identity Female 06/28/2022 10:20 AM EDT Sexual Orientation Straight 06/28/2022 10 :20 AM EDT documented as of this encounter Plan of Treatment Upcoming Encounters Date Type Department Care Team (Late st Contact Info) Description 12/24/2024 3:30 PM EDT Telemedicine [facility] [address] [place] [address] Clement Lockhart MD [address] [place] [address] 01/01/2025 9:20 AM EDT Procedure Visit [facility] [address] [place] [address] Liliam Penny MD [address] [place], [place] [phone] 01/09/2025 2:45 PM EDT Office Visit [facility] [address] [place], [place] [phone] TarAtiya fierro, OD [address] [place] [address] documented as of this encounter Visit Diagnoses Not on filedocumented in this encounter Additional Health Concerns Assessment Noted Time PHQ-9 Depression Total Score: 0 09/05/19 24 3:55 PM EST documented as of this encounter Care Teams Bill Hiker Relationship Specialty Start Date End Date Clement Lockhart MD [address] [place] [address] PCP - General Internal Medicine 10/19/19 documented as of this encounter
--- OUTSIDE RECORDS SUMMARY | 2024-12-18 06:59 | XMS_ITS | Clinical Summary ---
Author Organization [employer] Address [address] [facility] 7t [place] [address] Care Team Providers Care Supervisor Ride Assembly Name Role Phone Clement Lockhart MD Primary Care Prov ider Allergies Active Allergy Reactions Criticality Noted Date Comments Shellfish-Derived Products 3 Medications triamcinolone (Kenalog) 0.1 % ointmentIndication s:Diffuse papular rash Apply topically 2 times daily. 90 g 3 Active cetirizine (ZyrTEC) 10 MG tabletIndications: Diffuse papular rash Take 1 tablet (10 mg) by mouth in the morning. 10 tablet 3 Active FREESTYLE LITE test strip For glucose monitoring 3 times a day 100 each 12 4 025 Active Dulaglutide 0.75 MG/0.5ML solution auto-injectorIndic ations:Type 2 diabetes mellitus with hyperglycemia, without long-term current use of insulin (CMS/[facility]) Inject 0.75 mg under the skin 1 (one) time per week. 3 mL 1 5 Active glipiZIDE (Glucotrol) 10 MG tablet Take 1 tablet (10 mg) by mouth before breakfast and before evening meal. 180 tablet 3 5 026 Active hydroCHLOROthiazid e (HYDRODiuril) 25 MG tablet Take 1 tablet (25 mg) by mouth Once per day. 90 tablet 3 5 026 Active empagliflozin (Jardiance) 25 MGIndications:Type 2 diabetes mellitus with hyperglycemia, without long-term current use of insulin (CMS/HCC) Take 1 tablet (25 mg) by mouth in the morning. 90 tablet 3 5 Active losartan (Cozaar) 100 MG tabletIndications: Primary hypertension Take 1 tablet (100 mg) by mouth in the morning. 30 tablet 11 5 Active metFORMIN (Glucophage) 1000 MG tablet Take 1 tablet (1,000 mg) by mouth with breakfast and with evening meal. 180 tablet 3 5 026 Active rosuvastatin (Crestor) 20 MG tabletIndications: Mixed hyperlipidemia Take 1 tablet (20 mg) by mouth Once per day. 90 tablet 3 5 026 Active Active Problems Problem Noted Date Diagnosed Date Screening for colon cancer 09/05/2023 Assessment & Plan (09/05/2023 4:11 PM EST): Done on 10/2021 due in 10 years Obesity 11/11/2022 Dyslipidemia 11/11/2022 Type 2 diabetes mellitus wit h hyperglycemia, without long-term current use of insulin 09/20/2022 Assessment & Plan (11/13/2024 2:59 PM EDT): Uncontrolled, will add trulcity, continue metformin/jardiance/glipizide, new labs ordered, follow up in 1 month Assessment & Plan (01/02/2024 5:42 PM EDT): Not at target, she is on triple oral therapy maximum dose, patient has needle phobia, will try trulicity, follow up In 1 month Assessment & Plan (09/05/2023 6:05 PM EST): Not at target, she refers takig 3metformin bid/glipizide bid and jardiance, will renew rybelsus, she does not want to get insulin/injections. Will follow up in 1 month Eye exam scheduled for September Assessment & Plan (11/11/2022 2:40 PM EDT): Patient does not want insulin therapy, on glipizide, jardiance/metformin and rybelsus, will order new labs for guidance of therapy. Hypertension 11/29/2012 Assessment & Plan (11/13/2024 2:54 PM EDT): Controlled, continue low sodium diet and exercise as tolerated, new labs ordered Assessment & Plan (01/02/2024 5:20 PM EDT): Not controlled, on losartan 100mg, will add hydrochlorothiazide 25mg, keep bp log, follow up in 1 month, keep low sodium diet and exercise as tolerated Assessment & Plan (09/05/2023 6:04 PM EST): Uncontrolled, will increase losartan to 100mg, continue bp monitoring, reinforced low sodium diet and exercise, follow up in 1 month with new labs Encounters Date Type Department Care Team Description 12/04/2024 Telephone [facility] [address] [place] [address] Niyah Douglas, PharmD 11/13/2024 2:15 PM EDT Office Visit [facility] [address] [place] [address] Clement Lockhart MD Type 2 diabetes mellitus with hyperglycemia, without long-term current use of insulin ([facility]) (Primary Dx); Encounter for screening mammogram for malignant neoplasm of breast; Primary hypertension; Mixed hyperlipidemia 11/13/2024 Travel 11/06/2024 Refill [facility] [address] [place] [address] Clement Lockhart MD Primary hypertension 10/22/2024 Refill [facility] [address] [place] [address] Clement Lockhart MD Mixed hyperlipidemia 09/26/2024 Telephone [facility] [address] [place] [address] Clement Lockhart MD chronic conditions tracking from Last 3 Months Immunizations Name Administration Dates Next Due DT (pediatric) 01/17/2006 Hep B, Adolescent or Pediatric 05/19/2010,2009,09/29/2009 Pneumococcal Polysaccharide PPSV23 09/29/2009 TD (adult), 2 Lf tetanus tox oid, preservative free, adsorbed 09/29/2009 Tdap 10/19/2019 Zoster, Recombinant 03/24/2020,10/23/2019 Social History Tobacco Use Types Packs/Day Years Used Date Smoking Tobacco: Never Passive Smoke Exposure: Never Smokeless Tobacco: Never Tobacco Cessation:Counseling Given: Not Answered Alcohol Use Standard Drinks/Week Comments Never 0 (1 standard drink = 0.6 oz pur e alcohol) Depression Answer Date Recorded Patient Health Questionnaire-9 Score 0 11/13/2024 Patient Health Questionnaire-9 Score 0 11/13/2024 Last PHQ-9: Questionnaire Data Not on file 0 11/13/2024 Housing Stability Answer Date Recorded What is your housing situation today? I have diego xiao 11/13/[address] you li ve. Do you have problems with any of the following? None of the above 11/13/2024 Food Insecurity Answer Date Recorded Within the past 12 months, y ou worried that your food would run out before you got money to buy more: Never True 11/13/2024 Within the past 12 months,th e food you bought just didn't last and you didn't have enough money to get more: Never True Transportation Answer Date Recorded In the past 12 months, has l ack of transportation kept you from medical appts, meetings, work or from getting things needed for daily living? No 11/13/2024 Utilities Answer Date Recorded In the past 12 months, has t he electric, gas, oil or water company threatened to shut off services in your home? No 11/13/2024 Depression Answer Date Recorded Patient Health Questionnaire-2 Score 0 11/13/2024 Internet Access Answer Date Recorded Internet Access Q1 Yes 11/13/2024 Internet Access Q2 Not on file 11/13/2024 Comments Unknown Sex and Gender Information Value Date Recorded Sex Assigned at Female 06/28/2022 10:20 AM EDT Legal Sex Female 10:20 AM EDT Gender Identity Female 06/28/2022 10:20 AM EDT Sexual Orientation Straight 06/28/2022 10 :20 AM EDT Last Filed Vital Signs Vital Sign Reading Time Taken Comments Blood Pressure 124/68 11/13/2024 2:03 PM EDT Pulse 77 11/13/2024 2:03 PM EDT Temperature 36.3 ??C (97.4 ??F) 11/13/2024 2:03 PM ED T Respiratory Rate 20 11/13/2024 2:03 PM EDT Oxygen Saturation 98% 11/13/2024 2:03 PM EDT Inhaled Oxygen Concentration - - Weight 88.9 kg (196 lb) 11/13/2024 2:03 PM EDT Height 157.5 cm (5' 2 ) 11/13/2024 2:03 PM EDT Body Mass Index 35.85 11/13/2024 2:03 PM EDT Plan of Treatment Upcoming Encounters Date Type Department Care Team (Late st Contact Info) Description 12/24/2024 3:30 PM EDT Telemedicine [facility] [address] [place] [address] Clement Lockhart MD [address] [place] [address] 01/01/2025 9:20 AM EDT Procedure Visit [facility] [address] [place] [address] Liliam Penny MD [address] [place] [address] 01/09/2025 2:45 PM EDT Office Visit [facility] [address] [place], [place] [phone] Atiya Duran, OD [address] [place], [place] [phone] Health Maintenance Due Date Last Done Comments CT Colonography 1965 FIT DNA/Cologuard 1965 FIT 1965 FOBT 1965 Sigmoidoscopy 1965 Eye Exam 12/08/1975 Hepatitis B Vaccines (1 of 3 - 19+ 3-dose series) 1984 05/19/2010, 12/01/2009, 09/29/2009 Pap Smear 1986 Pneumococcal Vaccine: 50+ Years (2 of 2 - PCV) 09/29/2010 09/29/2009 Diabetes: Urine Protein Screening 12/19/2022 12/19/2021, 10/19/2019 Mammogram 12/18/2023 12/17/2021, 12/17/2021 COVID-19 Vaccine ( season) 2024 09/12/2021, 12/27/2020, 12/06/2020 Influenza Vaccine (#1) 2024 Lipid Panel 10/01/2024 10/01/2023 Cervical Cancer Screening 11/12/2024 HPV/Cotest 11/12/2024 11/13/2019 Diabetes: Foot Exam 01/01/2025 01/02/2024, 01/02/2024, 01/02/2024, Additional history exists Tobacco Screening 01/01/2025 01/02/2024 Diabetes: Hemoglobin A1C 02/13/2025 025, 01/02/2024, 09/05/2023, Additional history exists Alcohol/Substance Use Screening 11/13/2025 11/13/2024 Depression Screening 11/13/2025 11/13/2024, 11/14/19 25 SDOH Screening 11/13/2025 11/13/2024 DTaP/Tdap/Td Vaccines (2 - Td or Tdap) 10/19/2029 10/19/2019, 09/29/2009 Colonoscopy 11/10/2031 11/09/2021 Colorectal Cancer Screening 11/10/2031 RSV Patients and Patients Aged 60 years or older (1 - 1-dose 75+ series) 2040 HIV Screening Completed 10/19/2019 Zoster Vaccines Completed 03/24/2020, 10/23/2019 Hepatitis C Screening Completed 12/19/2021, 022 HIB Vaccines Aged Out No longer eligi ble based on patient's age to complete this topic HPV Vaccines Aged Out No longer eligi ble based on patient's age to complete this topic Hepatitis A Vaccines Aged Out No long er eligible based on patient's age to complete this topic IPV Vaccines Aged Out No longer eligi ble based on patient's age to complete this topic Meningococcal Vaccine Aged Out No macrina enio eligible based on patient's age to complete this topic RSV under 20 months Aged Out No longe r eligible based on patient's age to complete this topic Rotavirus Vaccines Aged Out No longer eligible based on patient's age to complete this topic Procedures Procedure Name Priority Date/Time Associated Diagnosis Comments POCT GLYCATED HEMOGLOBIN, TOTAL Routine 11/13/2024 2:10 PM EDT Type 2 diabetes mellitus with hyperglycemia, without long-term current use of insulin ([facility]/HCC) POCT GLUCOSE Routine 11/13/2024 2:10 PM EDT Type 2 diabetes mellitus with hyperglycemia, without long-term current use of insulin (CMS/[facility]) LIPID PANEL, STANDARD Routine 10/01/2023 8:37 AM EST Type 2 diabetes mellitus with hyperglycemia, without long-term current use of insulin ([facility]) [facility] HISTORICAL MICROALBUMIN/CREATIN INE RATIO, RANDOM URINE Routine 12/19/2021 8:30 AM EDT [facility] HISTORICAL HEPATITIS C ANTIBODY RFLX Routine 12/19/2021 8:29 AM EDT MAMMOGRAM GENERIC Routine 12/17/2021 12: 40 PM EDT HM COLONOSCOPY Routine 11/09/2021 7:28 AM EDT [facility] HISTORICAL HPV MRNA E6/E7 Routine 11/13/2019 3:54 PM EDT [facility] HISTORICAL HIV AB/AG Routine 10/19/2019 2:44 PM EST from Last 3 Months or Most Recently Relevant to Health Maintenance Results * (ABNORMAL) POCT HGB A1C (11/13/2024 2:10 PM EDT) Hemoglobin A1C 9.0(A) 4.0 - 6.0 % QC Media Lot # [id number] Lot# Expiration Date [id number] Blood 11/13/2024 2:10 PM EDT Clement Maynard MD POINT OF CARE TEST ENTER/EDIT ORDERABLES Final Result * POCT Glucose (11/13/2024 2:10 PM EDT) Glucose Blood, POC 119 60 - 200 mg/dL QC Media Lot # [id number] Lot# Expiration Date Blood Capillary blood specimen / Unknown 11/13/2024 2:10 PM EDT Clement Maynard MD POINT OF CARE TEST ENTER/EDIT ORDERABLES Final Result * Lipid Panel, Standard (10/01/2023 8:37 AM EST) Triglycerides 104 <150 mg/dL [facility] Comment:Desirable Triglyceri de: less than 150 mg/dLBorderline High Triglyceride 150-199 mg/dLHigh Triglyceride: 200-499 mg/dLVery High Triglyceride: greater than or equal to 5OO mg/dL Cholesterol 121 <200 mg/dL [facility] Comment:Desirable Cholestero l: less than 200 mg/dLBorderline High Cholesterol: 200-239 mg/dLHigh Cholesterol: greater than 239 mg/dL LDL Cholesterol Calculated 56 <100 mg/dL [facility] Comment:Desirable LDL: less than 100 mg/dLNear Optimal/Above Optimal LDL: 110- 129 mg/dLBorderline High LDL: 130-159 mg/dLHigh LDL: 160-189 mg/dLVery High LDL: greater than or equal to 190 mg/dL HDL Cholesterol 45 >40 mg/dL [facility] Comment:Desirable HDL: great er than 40 mg/dL Note: This HDL assay may give artificially low results in patients with liver disease. Blood Venous blood specimen / Unknown 10/01/2023 8:37 AM EST 10/01/2023 8:37 AM EST Clement Maynard MD LAB BLOOD ORDERABL ES Final Result [facility] [address] [place] [phone] * MICROALBUMIN/CREATININE RATIO, RANDOM URINE (12/19/2021 8:30 AM EDT) Creatinine Urine 34.61 mg/dL [facility] Microalbum/Creati nine Ratio Ur 17.3 ug/mg cr [facility] Comment: ?Albumin/Creatinine Ratio Reference Ranges: ? Normal: < 30 ug/mg creatinine ? Microalbuminuria: ??30 - 300 ug/mg creatinine Clinical Albuminuria: ??> 300 ug/mg creatinine Microalbumin Urine 6.0 mg/L [facility] 12/19/2021 8:30 AM EDT Clement Maynard MD HISTORICAL/NON ORD ERABLE LABS Final Result Performing Organization Address [facility] Phone Number [facility] [address] * HEPATITIS C ANTIBODY RFLX (12/19/2021 8:29 AM EDT) Pathologist [facility] Hepatitis C Antibody Nonreactive Nonreactive [facility] Comment: Antibodies to HCV not detected; does not exclude early acute HCV infection. 12/19/2021 8:29 AM EDT Clement Maynard MD HISTORICAL/NON ORD ERABLE LABS Final Result Performing Organization Address [facility] Phone Number [facility] [address] * Mammography Report 1 (12/17/2021 12:40 PM EDT) Anatomical Region Laterality Modality Breast Bilateral Mammography 12/17/2021 12:4 0 PM EDT Narrative 12/18/2021 12:12 PM EDT Refer to the Notes tab for result details [facility] Procedure: Mammography Report 1 Procedure Note ProviderRadha MD - 11/21/2022 Refer to the Notes tab for result details [facility] Procedure: Mammography Report 1 Clement Maynard MD IMG BI PROCEDURES Final Result * Hm Colonoscopy (11/09/2021 7:28 AM EDT) us Historical Provider MD HEALTH MAINTENANCE Final Result * HPV mRNA E6/E7 (11/13/2019 3:54 PM EDT) Pathologist [facility] HPV mRNA E6/E7 Not Detected NOT DETECTED [facility] Comment: This test was performed using the APTIMA(R) HPV Assay ([employer] This assay detects E6/E7 viral messenger RNA (mRNA) from 14 high-risk HPV types (16,18,31,33,35,39,45,51, 52,56,58,59,66,68). For additional information please refer to: http://education.DemandTec/faq/DRN375w4 (This link is being provided for informational/ educational purposes only.) The analytical performance characteristics of this assay have been determined by [employer] [place], [place]. The modifications have not been cleared or approved by the FDA. This assay has been validated pursuant to the CLIA regulations and is used for clinical purposes. Test Performed by [facility], [employer] [place], [address] [place] [address] Marc Swan M.D., Ph.D., Director of Laboratories , CLIA [id number] Please note: ??Effective 05/10/2016, HPV testing will be performed using [employer]'s APTIMA test which targets mRNA. Detecting mRNA instead of DNA, as in older methods, offers significant improvements in specificity. 11/13/2019 3:54 PM EDT us Belle Smith CNM HISTORICAL/NON ORDERABLE LABS Final Result [facility] [address] * HIV AB/AG (10/19/2019 2:44 PM EST) [facility] HIV AG/AB NONREACTIVE [facility] Comment: HIV-1 p24 Ag and/or HIV-1/HIV-2 Ab not detected. ?? A test result that is nonreactive does not exclude the possibility of exposure to or infection with HIV-1 and/or HIV-2. Nonreactive results in this assay for individuals with prior exposure to HIV-1 and/or HIV-2 may be due to antigen and antibody levels that are below the limit of detection of this assay. ?? [facility] [employer] HIV Ag/Ab Combo assay result and supplemental assay results should be interpreted in conjunction with the patient's clinical presentation, history and other laboratory results. ??If the results are inconsistent with clinical evidence, additional testing is suggested to confirm the result. 10/19/2019 2:44 PM EST us Clement Maynard MD HISTORICAL/NON ORD ERABLE LABS Final Result Performing Organization Address City/State/[facility] Co de Phone Number [facility] [address] from Last 3 Months or Most Recently Relevant to Health Maintenance Insurance [place], [place] [facility] [facility] * Guarantor: Lupe Woodruff Account Type Relation to Patient Date of Phone Billing Address Personal/Family Self [place], [place] * Guarantor: Lupe Woodruff Account Type Relation to Patient Date of Phone Billing Address Personal/Family Self [place], [place] Care Teams Supervisor Ride Assembly Relationship Specialty Start Date End Date Clement Lockhart MD [address] [place] [phone] PCP - General Internal Medicine 10/19/19
--- OUTSIDE RECORDS SUMMARY | 2024-12-18 06:59 | XMS_ITS | Encounter Summary ---
Author Organization [employer] Address [address] [facility] [address] [place] [address] Care Team Providers Care Public Information Director Name Role Phone Clement Lockhart MD Primary Care Prov ider Encounter Details Date Type Department Care Team (Late st Contact Info) Description 01/25/2024 Orders Only [facility] [address] [place] [address] Clement Lockhart MD [address] [place] [address] Social History Tobacco Use Types Packs/Day Years [...] Info) Description 12/24/2024 3:30 PM EDT Telemedicine [facility] [address] [place] [address] Clement Lockhart MD [address] [place] [address] 01/01/2025 9:20 AM EDT Procedure Visit [facility] [address] [place] [address] Liliam Penny MD [address] [place], [place] [phone] 01/09/2025 2:45 PM EDT Office Visit [facility] [address] [place], [place] [phone] TarAtiya fierro, OD [address] [place] [address] documented as of this encounter Visit Diagnoses Not on filedocumented in this encounter Additional Health Concerns Assessment Noted Time PHQ-9 Depression Total Score: 0 09/05/19 24 3:55 PM EST documented as of this encounter Care Teams Public Information Director Relationship Specialty Start Date End Date Clement Lockhart MD [address] [place] [address] PCP - General Internal Medicine 10/19/19 documented as of this encounter
--- OUTSIDE RECORDS SUMMARY | 2024-12-18 06:59 | XMS_ITS | Encounter Summary ---
Author Organization [employer] Address [address] [facility] [address] [place] [address] Care Team Providers Care Pricing Director Name Role Phone Clement Lockhart MD Primary Care Prov ider Encounter Details Date Type Department Care Team (Late st Contact Info) Description 12/15/2023 Orders Only [facility] [address] [place] [address] ProviderRadha MD Social History Tobacco Use Types Packs/Day Years Used Date Smoking Tobacco: Never Smokeless Tobacco: Never Alcohol Use Standard Drinks/Week Comments Never 0 (1 standard drink = 0.6 oz pur e alcohol) Depression Answer Date Recorded Patient Health Questionnaire-9 Score 0 09/05/2023 Patient Health Questionnaire-9 Score 0 09/05/2023 Last PHQ-9: Questionnaire Data Not on file 0 09/05/2023 Housing Stability Answer Date Recorded What is your housing situation today? I have diegoalanis xiao 09/05/[address] you [...] Info) Description 12/24/2024 3:30 PM EDT Telemedicine [facility] [address] [place] [address] Clement Lockhart MD [address] [place] [address] 01/01/2025 9:20 AM EDT Procedure Visit [facility] [address] [place] [address] Liliam Penny MD [address] [place] [address] 01/09/2025 2:45 PM EDT Office Visit [facility] [address] [place] [address] TarkaAtiya, OD [address] [place] [address] documented as of this encounter Procedures Procedure Name Priority Date/Time Associated Diagnosis Comments HM COLONOSCOPY Routine 11/09/2021 7:28 AM EDT documented in this encounter Results * Hm Colonoscopy (11/09/2021 7:28 AM EDT) Historical Provider HEALTH MAINTENANCE Final Result documented in this encounter Visit Diagnoses Not on filedocumented in this encounter Additional Health Concerns Assessment Noted Time PHQ-9 Depression Total Score: 0 09/05/19 24 3:55 PM EST documented as of this encounter Care Teams Pricing Director Relationship Specialty Start Date End Date Clement Lockhart MD [address] [place] [address] PCP - General Internal Medicine 10/19/19 documented as of this encounter
[2024-12-18 07:30] LABS: Basophils Absolute Auto 0.1 X10*3/uL (0.0-0.2); Basophils Percent Auto 0.6 % (0-2); Eosinophils Absolute Auto 0.3 X10*3/uL (0.0-0.4); Eosinophils Percent Auto 2.7 % (0-4); Hematocrit 46.1 % (37.0-47.0); Hemoglobin 14.5 g/dl (12.0-16.0); Imm Gran Abs Auto 0.04 X10*3/uL (0.00-0.03); Imm Gran Pct Auto 0.4 % (0.0-0.4); Lymphocytes Absolute Auto 4.4 X10*3/uL (1.2-4.9); Lymphocytes Percent Auto 40.1 % (20-40); MANUAL DIFF FLAG NO; Mean Corpuscular HGB Conc 31.5 g/dl (31.0-35.0); Mean Corpuscular Hemoglobin 27.5 pg (27.0-33.0); Mean Corpuscular Volume 87.5 fL (80.0-98.0); Mean Platelet Volume 11.6 fL (9.4-12.3); Monocytes Absolute Auto 0.6 X10*3/uL (0.1-1.2); Monocytes Percent Auto 5.1 % (2-11); Neutrophils Absolute Auto 5.6 x10*3/uL (2.0-8.3); Neutrophils Percent Auto 51.1 % (45-73); Platelet Count 248 X10*3/uL (160-400); Red Blood Count 5.27 X10*6/uL (4.20-5.50); Red Cell Distribution Width 13.2 % (11.0-16.0); White Blood Count 10.9 X10*3/uL (4.8-10.8)
[2024-12-18 08:34] LABS: Alanine Aminotransferase 24 U/L (0-31); Albumin Level 4.4 g/dL (3.5-5.0); Alkaline Phosphatase 70 U/L (39-117); Anion Gap 14 (12-20); Aspartate Amino Transferase 25 U/L (5-31); Bilirubin Total 0.4 mg/dL (0.0-1.0); Blood Urea Nitrogen 15 mg/dL (9-16); Calcium 9.8 mg/dL (8.4-10.2); Carbon Dioxide 25 mmol/L (22-29); Chloride 105 mmol/L (96-108); Cholesterol 124 mg/dL (<200); Estimated Glomerular Filt Rate > 60; Glucose Random 187 mg/dL (60-115); HDL Cholesterol 47 mg/dL (>40); Potassium 5.1 mmol/L (3.3-5.1); Sodium 139 mmol/L (135-145); Total Protein 7.5 g/dL (6.5-8.0)
[2024-12-18 08:35] LABS: Creatinine Urine 80.03 mg/dL; Microalbum/Creatinine Ratio Ur 54.9 ug/mg cr (<30)
[2024-12-18 08:41] LABS: LDL Cholesterol Calculated 40 mg/dL (<100); TSH reflex Free T4 2.18 uIU/mL (0.32-4.0); Triglycerides 188 mg/dL (<150)
== END 2024-12-18 06:57 | disposition home or self-care (01) ==
LOC: HO.LAB 06:56
PROVIDERS: Internal Medicine; Visit Provider Internal Medicine
DX: E11.65 Type 2 diabetes mellitus with hyperglycemia (principal)
CPT/HCPCS: 36415; 80053; 80061; 82043; 82570; 84443; 85025

== ENCOUNTER 2024-12-31 14:51 | Outpatient (REF) | payer OTHER, SELFPAY ==
--- OUTSIDE RECORDS SUMMARY | 2024-12-31 16:26 | XMS_ITS | Clinical Summary ---
Author Organization [employer] Address [address] [facility] 7[address] [place] [address] Care Team Providers Care Recycler Name Role Phone Clement Lockhart MD Primary Care Prov ider Allergies Active Allergy Reactions Criticality Noted Date Comments Shellfish-Derived Products 3 Medications triamcinolone (Kenalog) 0.1 % ointmentIndicatio ns:Diffuse papular rash Apply topically 2 times daily. 90 g 023 Active cetirizine (ZyrTEC) 10 MG tabletIndications :Diffuse papular rash Take 1 tablet (10 mg) by mouth in the morning. 10 tablet 023 Active FREESTYLE LITE test strip For glucose monitoring 3 times a day 100 each 12 024 2024 Active glipiZIDE (Glucotrol) 10 MG tablet Take 1 tablet (10 mg) by mouth before breakfast and before evening meal. 180 tablet 3 025 2025 Active hydroCHLOROthiazi de (HYDRODiuril) 25 MG tablet Take 1 tablet (25 mg) by mouth Once per day. 90 tablet 3 025 2025 Active losartan (Cozaar) 100 MG tabletIndications :Primary hypertension Take 1 tablet (100 mg) by mouth in the morning. 30 tablet 11 025 Active metFORMIN (Glucophage) 1000 MG tablet Take 1 tablet (1,000 mg) by mouth with breakfast and with evening meal. 180 tablet 3 025 2025 Active rosuvastatin (Crestor) 20 MG tabletIndications :Mixed hyperlipidemia Take 1 tablet (20 mg) by mouth Once per day. 90 tablet 3 025 2025 Active empagliflozin (Jardiance) 25 MGIndications:Typ e 2 diabetes mellitus with hyperglycemia, without long-term current use of insulin ([facility]) Take 1 tablet (25 mg) by mouth in the morning. 90 tablet 3 025 Active Dulaglutide 0.75 MG/0.5ML solution auto-injectorIndi cations:Type 2 diabetes mellitus with hyperglycemia, without long-term current use of insulin ([facility]) Inject 0.75 mg under the skin 1 (one) time per week. 3 mL 1 025 2024 Discontinued(C ost of medication) empagliflozin (Jardiance) 25 MGIndications:Typ e 2 diabetes mellitus with hyperglycemia, without long-term current use of insulin ([facility]) Take 1 tablet (25 mg) by mouth in the morning. 90 tablet 3 025 2024 Discontinued(R eorder (will not trigger notification to Pharmacy)) Active Problems Problem Noted Date Diagnosed Date Screening for colon cancer 09/05/2023 Assessment & Plan (09/05/2023 4:11 PM EST): Done on 10/2021 due in 10 years Obesity 11/11/2022 Dyslipidemia 11/11/2022 Type 2 diabetes mellitus wit h hyperglycemia, without long-term current use of insulin 09/20/2022 Assessment & Plan (12/25/2024 10:56 AM EDT): Uncontrolled, patient does not want to start insulin, she was fine with GLP1 once a week but was not covered by her insurance, she has been trying to improve her diet, nstructed to decrease carbs and sugars, will refer to [facility]. Follow up in 3 months Assessment & Plan (11/13/2024 2:59 PM EDT): [...] of therapy. Hypertension 11/29/2012 Assessment & Plan (12/25/2024 10:54 AM EDT): Controlled, continue low sodium diet and exercise as tolerated, keep bp log, target <130/80 Assessment & Plan (11/13/2024 2:54 PM EDT): [...] Encounters Date Type Department Care Team Description 12/24/2024 3:30 PM EDT Telemedicine [facility] [address] [place] [address] Clement Lockhart MD Type 2 diabetes mellitus with hyperglycemia, without long-term current use of insulin ([facility]) (Primary Dx); Primary hypertension 12/24/2024 Travel 12/19/2024 Telephone [facility] [address] [place] [address] Clement Lockhart MD 12/04/2024 Telephone [facility] [address] [place] [address] Niyah Douglas, PharmAnalia 11/13/2024 2:15 PM EDT Office Visit [facility] [address] [place] [address] Clement Lockhart MD Type 2 diabetes mellitus with hyperglycemia, without long-term current use of insulin ([facility]) (Primary Dx); Encounter for screening mammogram for malignant neoplasm of breast; Primary hypertension; Mixed hyperlipidemia 11/13/2024 Travel 11/06/2024 Refill [facility] [address] [place] [address] Clement Lockhart MD Primary hypertension 10/22/2024 Refill [facility] [address] [place] [address] Clement Lockhart MD Mixed hyperlipidemia from Last 3 Months Immunizations Name Administration [...] Sign Reading Time Taken Comments Blood Pressure 130/79 12/24/2024 3:42 PM EDT Pulse 77 11/13/2024 2:03 PM [...] Care Team (Late st Contact Info) Description 01/09/2025 2:45 PM EDT Office Visit [facility] [address] [place], [place] [phone] Atiya Duran, DA [address] [place] [address] 01/10/2025 1:00 PM EDT Procedure Visit [facility] [address] [place] [address] Liliam Penny MD [address] [place] [address] 03/26/2025 3:15 PM EDT Telemedicine [facility] [address] [place], [place] [phone] Clement Lockhart MD [address] [place], [place] [phone] Health Maintenance Due Date Last Done Comments CT Colonography 1965 FIT DNA/Cologuard 1965 FIT 1965 FOBT 1965 Sigmoidoscopy 1965 Eye Exam 12/08/1975 Hepatitis B Vaccines (1 of 3 - 19+ 3-dose series) 1984 05/19/2010, 12/01/2009, 09/29/2009 Pap Smear 1986 Pneumococcal Vaccine: 50+ Years (2 of 2 - PCV) 09/29/2010 09/29/2009 Mammogram 12/18/2023 12/17/2021, 12/17/2021 COVID-19 Vaccine ( season) 2024 09/12/2021, 12/27/2020, 12/06/2020 Influenza Vaccine (#1) 2024 Cervical Cancer Screening 11/12/2024 HPV/Cotest 11/12/2024 11/13/2019 Diabetes: Foot Exam 01/01/2025 01/02/2024, 01/02/2024, 01/02/2024, Additional history exists Tobacco Screening 01/01/2025 01/02/2024 Diabetes: Hemoglobin A1C 02/13/2025 03/ 025, 01/02/2024, 09/05/2023, Additional history exists Alcohol/Substance Use Screening 11/13/2025 11/13/2024 Depression Screening 11/13/2025 11/13/2024, 11/14/19 25 SDOH Screening 11/13/2025 11/13/2024 Diabetes: Urine Protein Screening 12/18/2025 12/18/2024, 12/19/2021, 10/19/2019 Lipid Panel 12/18/2025 12/18/2024, 10/01/2023 DTaP/Tdap/Td Vaccines (2 - Td or Tdap) [...] Procedure Name Priority Date/Time Associated Diagnosis Comments TSH W/REFLEX TO FT4 Routine 12/18/2024 7 :09 AM EDT Type 2 diabetes mellitus with hyperglycemia, without long-term current use of insulin (CMS/HCC) LIPID PANEL, STANDARD Routine 12/18/2024 7:09 AM EDT Type 2 diabetes mellitus with hyperglycemia, without long-term current use of insulin (CMS/HCC) COMPREHENSIVE METABOLIC PANEL Routine 12/18/2024 7:09 AM EDT Type 2 diabetes mellitus with hyperglycemia, without long-term current use of insulin (CMS/HCC) CBC WITH AUTO DIFFERENTIAL Routine 12/18/2024 7:09 AM EDT Type 2 diabetes mellitus with hyperglycemia, without long-term current use of insulin (CMS/HCC) ALBUMIN, RANDOM URINE W/CREATININE Routine 12/18/2024 7:07 AM EDT Type 2 diabetes mellitus with hyperglycemia, without long-term current use of insulin (CMS/HCC) POCT GLYCATED HEMOGLOBIN, TOTAL Routine 11/13/2024 2:10 PM EDT Type 2 diabetes mellitus with hyperglycemia, without long-term current use of insulin (CMS/HCC) POCT GLUCOSE Routine 11/13/2024 2:10 PM EDT Type 2 diabetes mellitus with hyperglycemia, without long-term current use of insulin (CMS/HCC) [facility] HISTORICAL HEPATITIS C ANTIBODY RFLX Routine 12/19/2021 8:29 AM EDT MAMMOGRAM GENERIC Routine 12/17/2021 12: 40 PM EDT HM COLONOSCOPY Routine 11/09/2021 7:28 AM EDT [facility] HISTORICAL HPV MRNA E6/E7 Routine 11/13/2019 3:54 PM EDT [facility] HISTORICAL HIV AB/AG Routine 10/19/2019 2:44 PM EST from Last 3 Months or Most Recently Relevant to Health Maintenance Results * TSH W/Reflex to FT4 (12/18/2024 7:09 AM EDT) TSH reflex Free T4 2.18 0.32 - 4.0 uIU/mL [facility] Blood Venous blood specimen / Unknown 12/18/2024 7:09 AM EDT 12/18/2024 7:10 AM EDT us Clement Maynard MD LAB BLOOD ORDERABL ES Final Result [facility] [address] [place] [phone] * (ABNORMAL) CBC auto differential (12/18/2024 7:09 AM EDT) White Blood Count 10.9(H) 4.8 - 10.8 X10*3/uL [facility] Red Blood Count 5.27 4.20 - 5.50 X10*6/uL [facility] Hemoglobin 14.5 12.0 - 16.0 g/dl [facility] Hematocrit 46.1 37.0 - 47.0 % [facility] Mean Corpuscular Volume 87.5 80.0 - 98.0 fL [facility] Mean Corpuscular Hemoglobin 27.5 27.0 - 33.0 pg [facility] Mean Corpuscular HGB Conc 31.5 31.0 - 35.0 g/dl [facility] Red Cell Distribution Width 13.2 11.0 - 16.0 % [facility] Platelet Count 248 160 - 400 X10*3/uL [facility] Mean Platelet Volume 11.6 9.4 - 12.3 fL [facility] Neutrophils Percent Auto 51.1 45 - 73 % [facility] Imm Gran Pct Auto 0.4 0.0 - 0.4 % [facility] Lymphocytes Percent Auto 40.1(H) 20 - 40 % [facility] Monocytes Percent Auto 5.1 2 - 11 % [facility] Eosinophils Percent Auto 2.7 0 - 4 % [facility] Basophils Percent Auto 0.6 0 - 2 % [facility] NRBC Pct Auto 0.0 0.0 - 0.2 /100WBC [facility] Neutrophils Absolute Auto 5.6 2.0 - 8.3 x10*3/uL [facility] Imm Gran Abs Auto 0.04(H) 0.00 - 0.03 X10*3/uL [facility] Lymphocytes Absolute Auto 4.4 1.2 - 4.9 X10*3/uL [facility] Monocytes Absolute Auto 0.6 0.1 - 1.2 X10*3/uL [facility] Eosinophils Absolute Auto 0.3 0.0 - 0.4 X10*3/uL [facility] Basophils Absolute Auto 0.1 0.0 - 0.2 X10*3/uL [facility] NRBC Abs Auto 0.000 0.0 - 0.012 X10*3/uL [facility] Blood Venous blood specimen / Unknown 12/18/2024 7:09 AM EDT 12/18/2024 7:32 AM EDT us Clement Maynard MD LAB BLOOD ORDERABL ES Final Result [facility] [address] [place] [address] [phone] * (ABNORMAL) Lipid Panel, Standard (12/18/2024 7:09 AM EDT) Triglycerides 188(H) <150 mg/dL [facility] Comment:Desirable Triglyceri de: less than 150 mg/dLBorderline High Triglyceride 150-199 mg/dLHigh Triglyceride: 200-499 mg/dLVery High Triglyceride: greater than or equal to 5OO mg/dL Cholesterol 124 <200 mg/dL [facility] Comment:Desirable Cholestero l: less than 200 mg/dLBorderline High Cholesterol: 200-239 mg/dLHigh Cholesterol: greater than 239 mg/dL LDL Cholesterol Calculated 40 <100 mg/dL [facility] Comment:Desirable LDL: less than 100 mg/dLNear Optimal/Above Optimal LDL: 110- 129 mg/dLBorderline High LDL: 130-159 mg/dLHigh LDL: 160-189 mg/dLVery High LDL: greater than or equal to 190 mg/dL HDL Cholesterol 47 >40 mg/dL [facility] Comment:Desirable HDL: great er than 40 mg/dL Note: This HDL assay may give artificially low results in patients with liver disease. Blood Venous blood specimen / Unknown 12/18/2024 7:09 AM EDT 12/18/2024 7:10 AM EDT us Clement Maynard MD LAB BLOOD ORDERABL ES Final Result [facility] [address] [place] [phone] * (ABNORMAL) Comprehensive Metabolic Panel (12/18/2024 7:09 AM EDT) Sodium 139 135 - 145 mmol/L [facility] Potassium 5.1 3.3 - 5.1 mmol/L [facility] Comment:Slight Hemolysis.Int erpret result with caution. Chloride 105 96 - 108 mmol/L [facility] Carbon Dioxide 25 22 - 29 mmol/L [facility] Anion Gap 14 12 - 20 [facility] Urea Nitrogen (BUN) 15 9 - 16 mg/dL [facility] Creatinine, Serum 0.74 0.5 - 1.4 mg/dL [facility] Estimated Glomerular Filt Rate >60 [facility] Comment:Chronic Kidney Disea se: Estimated GFR < 60 mL/min/[id number] Kidney Disease: Estimated GFR < 15 mL/min/1.73m2 Glucose 187(H) 60 - 115 mg/dL [facility] Calcium 9.8 8.4 - 10.2 mg/dL [facility] Bilirubin, Total 0.4 0.0 - 1.0 mg/dL [facility] Aspartate Amino Transferase 25 5 - 31 U/L [facility] Comment:Slight Hemolysis.Int erpret result with caution. Alanine Aminotransferase 24 0 - 31 U/L [facility] Total Protein 7.5 6.5 - 8.0 g/dL [facility] Albumin Level 4.4 3.5 - 5.0 g/dL [facility] Alkaline Phosphatase 70 39 - 117 U/L [facility] Blood Venous blood specimen / Unknown 12/18/2024 7:09 AM EDT 12/18/2024 7:10 AM EDT Clement Maynard MD LAB BLOOD ORDERABL ES Final Result [facility] [address] [place] [phone] [phone] * (ABNORMAL) Albumin, Random Urine W/Creatinine (12/18/2024 7:07 AM EDT) Creatinine, Urine 80.03 mg/dL [facility] Microalbumin Urine 44.0 mg/L [facility] Microalbum Creatinine Ratio Ur 54.9(H) <30 ug/mg cr [facility] Comment:Albumin/Creatinine R atio Reference Ranges: Normal: < 30 ug/mg creatinine Microalbuminuria: 30 - 300 ug/mg creatinineClinical Albuminuria: > 300 ug/mg creatinine Urine (Urine, Random) 12/18/2024 7:07 AM EDT 12/18/2024 7:35 AM EDT Clement Maynard MD LAB URINE ORDERABL ES Final Result [facility] [address] [place] [phone] * (ABNORMAL) POCT HGB A1C (11/13/2024 2:10 PM EDT) Pathologist [facility] Hemoglobin A1C 9.0(A) 4.0 - 6.0 % QC Media Lot # [id number] Lot# Expiration Date [id number] Blood 11/13/2024 2:10 PM EDT Clement Maynard MD POINT OF CARE TEST ENTER/EDIT ORDERABLES Final Result * POCT Glucose (11/13/2024 2:10 PM EDT) Glucose Blood, POC 119 60 - 200 mg/dL QC Media Lot # [id number] Lot# Expiration Date 732,[id number] Blood Capillary blood specimen / Unknown 11/13/2024 2:10 PM EDT Clement Maynard MD POINT OF CARE TEST ENTER/EDIT ORDERABLES Final Result * HEPATITIS C ANTIBODY RFLX (12/19/2021 8:29 AM EDT) Pathologist [facility] Hepatitis C Antibody Nonreactive Nonreactive [facility] Comment: Antibodies to HCV not detected; does not exclude early acute HCV infection. 12/19/2021 8:29 AM EDT Clement Maynard MD HISTORICAL/NON ORD ERABLE LABS Final Result [facility] [address] * Mammography Report 1 (12/17/2021 12:40 [...] EDT) Historical Provider HEALTH MAINTENANCE Final Result * HPV mRNA E6/E7 (11/13/2019 3:54 PM EDT) Pathologist [facility] HPV mRNA E6/E7 Not Detected NOT DETECTED [facility] Comment: This test was performed using the APTIMA(R) HPV Assay ([employer] This assay detects E6/E7 viral messenger RNA (mRNA) from 14 high-risk HPV types (16,18,31,33,35,39,45,51, 52,56,58,59,66,68). For additional information please refer to: http://[email or web address].KnCMiner/faq/KOB089p3 (This link is being provided for informational/ educational purposes only.) The analytical performance characteristics of this assay have been determined by [employer] [place], [place]. The modifications have not been cleared or approved by the FDA. This assay has been validated pursuant to the CLIA regulations and is used for clinical purposes. Test Performed by [employer], [employer] [place], [address] [place], [place] Marc Swan M.D., Ph.D., Director of Laboratories , CLIA [id number] Please note: ??Effective 05/10/2016, HPV testing will be performed using [employer] APTIMA test which targets mRNA. Detecting mRNA instead of DNA, as in older methods, offers significant improvements in specificity. 11/13/2019 3:54 PM EDT Belle Smith CNM HISTORICAL/NON ORDERABLE LABS Final Result Performing Organization Address [facility] Phone Number [facility] [address] * HIV AB/AG (10/19/2019 2:44 PM EST) HIV AG/AB NONREACTIVE NR [facility] ON LAB [...] detection of this assay. ?? The [facility] HIV Ag/Ab Combo assay result and supplemental assay results should be interpreted in conjunction with the patient's clinical presentation, history and other laboratory results. ??If the results are inconsistent with clinical evidence, additional testing is suggested to confirm the result. 10/19/2019 2:44 PM EST Clement Maynard MD HISTORICAL/NON ORD ERABLE LABS Final Result Performing Organization Address [facility] Co de Phone Number [facility] [address] [place] [address], from Last 3 Months or Most Recently Relevant to Health Maintenance [place] [address] [place] [address] [employer] Care Teams Recycler Relationship Specialty Start Date End Date Clement Lockhart MD [address] [place] [phone] PCP - General Internal Medicine 10/19/19
--- OUTSIDE RECORDS SUMMARY | 2024-12-31 16:26 | XMS_ITS | Encounter Summary ---
Author Organization [employer] Address [address] [facility] 7t [place] [address] Care Team Providers Care Public Information Director Name Role Phone Clement Lockhart MD Primary Care Prov ider Encounter Details Date Type Department Care Team (Late st Contact Info) Description 01/05/2024 Orders Only [facility] [address] [place] [address] Clement Lockhart MD [address] [place] [address] Social History Tobacco Use Types Packs/Day Years [...] Description 01/09/2025 2:45 PM EDT Office Visit [facility] [address] [place] [address] TarkaAtiya, OD [address] [place] [address] 01/10/2025 1:00 PM EDT Procedure Visit [facility] [address] [place] [address] Liliam Penny MD [address] [place] [address] 03/26/2025 3:15 PM EDT Telemedicine [facility] [address] [place] [address] Clement Lockhart MD [address] [place] [address] documented as of this encounter Visit Diagnoses Not on filedocumented in this encounter Additional Health Concerns Assessment Noted Time PHQ-9 Depression Total Score: 0 09/05/19 24 3:55 PM EST documented as of this encounter Care Teams Public Information Director Relationship Specialty Start Date End Date Clement Lockhart MD [address] [place] [address] PCP - General Internal Medicine 10/19/19 documented as of this encounter
--- OUTSIDE RECORDS SUMMARY | 2024-12-31 16:26 | XMS_ITS | Encounter Summary ---
Author Organization [employer] Address [address] [facility] [address] [place] [address] Care Team Providers Care Security Analyst Name Role Phone Clement Lockhart MD Primary Care Prov ider Encounter Details Date Type Department Care Team (Late st Contact Info) Description 12/15/2023 Orders Only [facility] [address] [place] [address] ProviderRadha MD Social History Tobacco Use Types [...] Description 01/09/2025 2:45 PM EDT Office Visit [facility] [address] [place] [address] Atiya Duran, OD [address] [place] [address] 01/10/2025 1:00 PM EDT Procedure Visit [facility] [address] [place] [address] Liliam Penny MD [address] [place] [address] 03/26/2025 3:15 PM EDT Telemedicine [facility] [address] [place], [place] [phone] Clement Lockhart MD [address] [place] [address] documented as of this encounter Procedures Procedure Name Priority Date/Time Associated Diagnosis Comments HM COLONOSCOPY Routine 11/09/2021 7:28 AM EDT documented in this encounter Results * Hm Colonoscopy (11/09/2021 7:28 AM EDT) us Historical Provider HEALTH MAINTENANCE Final Result documented in this encounter Visit Diagnoses Not on filedocumented in this encounter Additional Health Concerns Assessment Noted Time PHQ-9 Depression Total Score: 0 09/05/19 24 3:55 PM EST documented as of this encounter Care Teams Security Analyst Relationship Specialty Start Date End Date Clement Lockhart MD [address] [place] [address] PCP - General Internal Medicine 10/19/19 documented as of this encounter
== END 2024-12-31 14:52 | disposition home or self-care (01) ==
LOC: HO.MAMMO 14:51
PROVIDERS: PCP Internal Medicine; Visit Provider Internal Medicine
DX: Z12.31 Encounter for screening mammogram for malignant neoplasm of breast (principal)
CPT/HCPCS: 77063; 77067

== ENCOUNTER → 2024-12-31 15:30 | Outpatient (BNV) | payer OTHER, SELFPAY | PROVIDERS: PCP Internal Medicine; Visit Provider Internal Medicine | DX: Z12.31 Encounter for screening mammogram for malignant neoplasm of breast (principal) | CPT/HCPCS: 77063; 77067 ==

== ENCOUNTER 2025-01-10 17:39 | Outpatient (REF) | payer OTHER, SELFPAY ==
--- OUTSIDE RECORDS SUMMARY | 2025-01-10 17:42 | XMS_ITS | Clinical Summary ---
Author Organization [employer] Address [address] [place] [address] Care Team Providers Care Regional Account Manager Name Role Phone Clement Lockhart MD Primary Care Prov ider Allergies Active Allergy Reactions Criticality Noted Date Comments Shellfish-Derived Products 3 Medications triamcinolone (Kenalog) 0.1 % ointmentIndicatio ns:Diffuse papular rash Apply topically 2 times daily. 90 g 023 Active cetirizine (ZyrTEC) 10 MG tabletIndications :Diffuse papular rash Take 1 tablet (10 mg) by mouth in the morning. 10 tablet 023 Active glipiZIDE (Glucotrol) 10 MG tablet Take [...] hyperglycemia, without long-term current use of insulin (CMS/[facility]) Take 1 tablet (25 mg) by mouth in the morning. 90 tablet 3 025 Active FREESTYLE LITE test strip For glucose monitoring 3 times a day 100 each 12 024 2024 Dulaglutide 0.75 MG/0.5ML solution auto-injectorIndi cations:Type 2 diabetes mellitus with hyperglycemia, without long-term current use of insulin (CMS/[facility]) Inject 0.75 mg under the skin 1 (one) time per week. 3 mL 1 025 2024 Discontinued(C ost of medication) empagliflozin (Jardiance) 25 MGIndications:Typ e 2 diabetes mellitus with hyperglycemia, without long-term current use of insulin (CMS/[facility]) Take 1 tablet (25 mg) by mouth in the morning. 90 tablet 3 025 2024 Discontinued(R eorder (will not trigger notification to Pharmacy)) Active Problems Problem Noted Date Diagnosed Date Cervical cancer screening 01/10/2025 Assessment & Plan (01/10/2025 1:24 PM EDT): 59 y.o. here for cervical cancer screening. Will continue monitoring following ASCCP guidelines. 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, without long-term current use of insulin 01/09/2025 Screening for colon cancer 09/05/2023 Assessment & [...] Encounters Date Type Department Care Team Description 01/10/2025 1:00 PM EDT Procedure Visit [facility] [address] [place] [address] Liliam Penny MD Encounter for immunization (Primary Dx); Cervical cancer screening 01/10/2025 Travel 01/09/2025 2:45 PM EDT Office Visit [facility] [address] [place] [address] Atiya Duran, OD Type 2 diabetes mellitus with both eyes affected by moderate nonproliferative retinopathy without macular edema, without long-term current use of insulin (CMS/HCC) (Primary Dx); Presbyopia; Dry eyes, bilateral; Vitreomacular traction syndrome of left eye 01/09/2025 Travel 12/24/2024 3:30 PM EDT Telemedicine [facility] [address] [place] [address] Clement Lockhart MD Type 2 diabetes mellitus with hyperglycemia, without long-term current use of insulin (CMS/HCC) (Primary Dx); Primary hypertension 12/24/2024 Travel 12/19/2024 Telephone [facility] [address] [place] [address] Clement Lockhart MD 12/04/2024 Telephone [facility] [address] [place] [address] Niyah Douglas PharmD 11/13/2024 2:15 PM EDT Office Visit [facility] [address] [place] [address] Clement Lockhart MD Type 2 diabetes mellitus with hyperglycemia, without long-term current use of insulin (CMS/HCC) (Primary Dx); Encounter for screening mammogram for malignant neoplasm of breast; Primary hypertension; Mixed hyperlipidemia 11/13/2024 Travel 11/06/2024 Refill [facility] [address] [place] [address] Clement Lockhart MD Primary hypertension 10/22/2024 Refill [facility] [address] [place] [address] Clement Lockhart MD Mixed hyperlipidemia from Last 3 Months Immunizations Immunization Administration Dates Next Due DT (pediatric) 01/17/2006 Hep B, Adolescent or Pediatric 05/19/2010,2009,09/29/2009 Pneumococcal Conjugate PCV 20 01/10/2025 Pneumococcal Polysaccharide PPSV23 09/29/2009 TD (adult), 2 Lf tetanus tox oid, preservative free, adsorbed 09/29/2009 Tdap 10/19/2019 Zoster, Recombinant 03/24/2020,10/23/2019 Family History Medical History Relation Name Comments Hypertension Father Prostate cancer Father Diabetes Mother Relation Name Status Comments Father Alive Mother Social History Tobacco Use Types Packs/Day Years [...] housing situation today? I have diegoalanis xiao 11/13/[address] you [...] Access Q2 Not on file 11/13/2024 Comments No Sex and Gender Information Value Date Recorded Sex Assigned at Female 06/28/2022 10:20 AM EDT Legal Sex Female 10:20 AM EDT Gender Identity Female 06/28/2022 10:20 AM EDT Sexual Orientation Straight 06/28/2022 10 :20 AM EDT Last Filed Vital Signs Vital Sign Reading Time Taken Comments Blood Pressure 120/60 01/10/2025 12:54 PM EDT Pulse 68 01/10/2025 12:54 PM EDT Temperature 37.1 ??C (98.7 ??F) 01/10/2025 12:54 PM E DT Respiratory Rate 20 01/10/2025 12:54 PM EDT Oxygen Saturation 99% 01/10/2025 12:54 PM EDT Inhaled Oxygen Concentration - - Weight 89.5 kg (197 lb 6.4 oz) 01/10/2025 12:54 PM EDT Height 157.5 cm (5' 2 ) 01/10/2025 12:54 PM EDT Body Mass Index 36.1 01/10/2025 12:54 PM EDT Plan of Treatment Upcoming Encounters Date Type Department Care Team (Late st Contact Info) Description 01/24/2025 3:00 PM EDT Medication Management [facility] [address] [place] [address] Niyah Douglas, PharmD [address] [place] [address] 03/26/2025 3:15 PM EDT Telemedicine [facility] [address] [place] [address] Clement Lockhart MD [address] [place] [address] Health Maintenance Due Date Last Done Comments CT Colonography 1965 FIT DNA/Cologuard 1965 FIT 1965 FOBT 1965 Sigmoidoscopy 1965 Hepatitis B Vaccines (1 of 3 - 19+ 3-dose series) 1984 05/19/2010, 12/01/2009, 09/29/2009 Pap Smear 1986 COVID-19 Vaccine ( season) 2024 09/12/2021, 12/27/2020, 12/06/2020 Cervical Cancer Screening 11/12/2024 HPV/Cotest 11/12/2024 11/13/2019 Diabetes: Foot Exam 01/01/2025 01/02/2024, 01/02/2024, 01/02/2024, Additional history exists Diabetes: Hemoglobin A1C 02/13/2025 025, 01/02/2024, 09/05/2023, Additional history exists Influenza Vaccine (#1) 2025 Postp oned from 04/29/2024 (Patient Refused) Alcohol/Substance Use Screening 11/13/2025 11/13/2024 Depression Screening 11/13/2025 11/13/2024, 11/14/19 25 SDOH Screening 11/13/2025 11/13/2024 Diabetes: Urine Protein Screening 12/18/2025 12/18/2024, 12/19/2021, 10/19/2019 Lipid Panel 12/18/2025 12/18/2024, 10/01/2023 Eye Exam 01/09/2026 01/09/2025, 12/27, 01/09/2025, Additional history exists Tobacco Screening 01/10/2026 01/10/2025 Mammogram 12/31/2026 12/31/2024, 0408/2021, 12/17/2021 DTaP/Tdap/Td Vaccines (2 - Td or Tdap) 10/19/2029 10/19/2019, 09/29/2009 Colonoscopy 11/10/2031 11/09/2021 Colorectal Cancer Screening 11/10/2031 RSV Patients and Patients Aged 60 years or older (1 - 1-dose 75+ series) 2040 HIV Screening Completed 10/19/2019 Zoster Vaccines Completed 03/24/2020, 10/23/2019 Hepatitis C Screening Completed 12/19/2021, 022 Pneumococcal Vaccine: 50+ Years Completed 01/10/2025, 09/29/2009 HIB Vaccines Aged Out No longer eligi [...] patient's age to complete this topic Meningococcal B Vaccine Aged Out No l onger eligible based on patient's age to complete [...] Procedure Name Priority Date/Time Associated Diagnosis Comments OCT, RETINA - OU - BOTH EYES Routine 01/09/2025 4:21 PM EDT Type 2 diabetes mellitus with both eyes affected by moderate nonproliferative retinopathy without macular edema, without long-term current use of insulin (CMS/HCC) Vitreomacular traction syndrome of left eye BI MAMMOGRAM SCREENING TOMOSYNTHESIS BILATERAL Routine 12/31/2024 3:00 PM EDT Encounter for screening mammogram for malignant neoplasm of breast TSH W/REFLEX TO FT4 Routine 12/18/2024 7 [...] without long-term current use of insulin (CMS/HCC) [facility] HISTORICAL HEPATITIS C ANTIBODY RFLX Routine 12/19/2021 8:29 AM EDT HM COLONOSCOPY Routine 11/09/2021 7:28 AM EDT [facility] HISTORICAL HPV MRNA E6/E7 Routine 11/13/2019 3:54 PM EDT [facility] HISTORICAL HIV AB/AG Routine 10/19/2019 2:44 PM EST from Last 3 Months or Most Recently Relevant to Health Maintenance Results * OCT, Retina - OU - Both Eyes (01/09/2025 4:21 PM EDT) Atiya Kennedy, OD - 01/09/2025 4:21 PM EDT OCT RETINA INTERPRETATION Optical Coherence Tomography Interpretation Report Reliability: OD: SS 52, good quality image OS: SS 52, good quality image Measurements: Central subfoveal thickness OD: ??253 microns OS: ??258 microns Test findings: OD: Normal foveal contour, all layers intact, (+) hemes with exudates and retinal thickening superior temporal, (+) VMA OS: All layers intact, (+) hemes, (+) VMT distorting foveal contour Impression and Plan: Moderate non-proliferative diabetic retinopathy (NPDR) both eyes (OU). VMA right eye (OD), VMT left eye (OS). RTC 6 months for DFE Atiya Duran OD OPHTH TOMOGRAPHY Final Result * BI Mammogram Screening Tomosynthesis Bilateral (12/31/2024 3:00 PM EDT) Anatomical Region Laterality Modality Breast Bilateral Mammography 12/31/2024 3:00 PM EDT Narrative 01/06/2025 9:33 PM EDT ? [facility] ? [address] ?[place] [address] ?[phone] ? Mammography Report ? Signed ? Patient: Woodruff,Lupe ?MR#: [id number] ?? 7 ? : 1965 ?Acct:[id number] ? Age/Sex: 59 / F ?ADM Date: 12/31/24 ? Loc: HO.MAMMO ? Attending Dr: Clement Maynard MD ? Ordering Physician: Clement Lockhart MD ?Res ?? ults: 1Negative ? Date of Service: 12/31/24 ?Follow Up: 1 Year From Orig ?? inal Mammogram ? Procedure(s): MM tomosynthesis screening BI ?? Accession Number(s): [id number] ? cc: Clement Lockhart MD ? EXAMINATION: ?? MM SCREENING DIGITAL BREAST TOMOSYNTHESIS, BILATERAL ? CLINICAL INFORMATION: ? Screening. Asymptomatic. ? COMPARISON: ?? Mammography: Comparison is made with available priors ? TECHNIQUE: ?? Digital breast mammography with tomosynthesis is performed in both the ?? craniocaudal and mediolateral oblique views along with computer-aided ?? detection (CAD). ? FINDINGS: ?? There are scattered areas of fibroglandular density (ACR BI-RADS breast ?? composition Category b). ? There are no significant masses, abnormal calcifications, or other ?? abnormalities. ? MM/MM tomosynthesis screening BI ?? IMPRESSION: ?? No mammographic evidence of malignancy. ? ASSESSMENT: ? BI-RADS BI-RADS 1 - Negative ? RECOMMENDATION: ?? Routine annual mammography screening. ? 1 year F/U ? This examination should not preclude the clinical evaluation of a ?? suspicious palpable abnormality. ? This patient's information was entered into a reminder system with a ?? target due date for their next mammogram. ? Electronically signed by: ??Edith Smith DO ??01/06/2025 09:30 PM EDT ?? RP ? Dictated By: ?Edith Smith DO ? Signed By: ?<Electronically signed by Edith Smith, DO in OV> ? 01/06/252129 ? DD/ 1500 ? TD/TT: 12/31/24 1520 ? Schedule Maker: ? Procedure Note Donotaninterpreter, Image - 01/06/2025 Tarik [facility] [address] [place] [address] Mammography Report Signed Patient: Lupe WoodruffMR#: [id number] 7 : 1965Acct:[id number] Age/Sex: 59 / FADM Date: 12/31/24 Loc: HO.MAMMO Attending Dr: Clement Maynard MD Ordering Physician: Clement Lockhart ults: 1Negative Date of Service: 12/31/24Follow Up: 1 Year From Orig inal Mammogram Procedure(s): MM tomosynthesis screening BI Accession Number(s): [id number] cc: Clement Lockhart MD EXAMINATION: MM SCREENING DIGITAL BREAST TOMOSYNTHESIS, BILATERAL CLINICAL INFORMATION: Screening. Asymptomatic. COMPARISON: Mammography: Comparison is made with available priors TECHNIQUE: Digital breast mammography with tomosynthesis is performed in both the craniocaudal and mediolateral oblique views along with computer-aided detection (CAD). FINDINGS: There are scattered areas of fibroglandular density (ACR BI-RADS breast composition Category b). There are no significant masses, abnormal calcifications, or other abnormalities. MM/MM tomosynthesis screening BI IMPRESSION: No mammographic evidence of malignancy. ASSESSMENT: BI-RADS BI-RADS 1 - Negative RECOMMENDATION: Routine annual mammography screening. 1 year F/U This examination should not preclude the clinical evaluation of a suspicious palpable abnormality. This patient's information was entered into a reminder system with a target due date for their next mammogram. Electronically signed by: Edith Smith DO 01/06/2025 09:30 PM EDT RP Dictated By: Edith Smith DO Signed By: <Electronically signed by Edith Smith DO in OV> 01/06/25 2130 DD/ 1500 TD/TT: 12/31/24 1520 Schedule Maker: Clement Maynard MD IMG BI PROCEDURES Final Result * TSH W/Reflex to FT4 (12/18/2024 7:09 AM EDT) TSH reflex Free T4 2.18 0.32 - 4.0 uIU/mL [facility] Blood Venous blood specimen / Unknown 12/18/2024 7:09 AM EDT 12/18/2024 7:10 AM EDT Clement Maynard MD LAB BLOOD ORDERABL ES Final Result [facility] [address] [place] [phone] * (ABNORMAL) CBC auto differential (12/18/2024 7:09 AM EDT) White Blood Count 10.9(H) 4.8 - 10.8 X10*3/uL [facility] Red Blood Count 5.27 4.20 - 5.50 X10*6/uL [facility] Hemoglobin 14.5 12.0 - 16.0 g/dl [facility] Hematocrit 46.1 37.0 - 47.0 % [facility] Mean Corpuscular Volume 87.5 80.0 - 98.0 fL [facility] Mean Corpuscular Hemoglobin 27.5 27.0 - 33.0 pg [facility] Mean Corpuscular HGB Conc 31.5 31.0 - 35.0 g/dl [facility] Red Cell Distribution Width 13.2 11.0 - 16.0 % [facility] Platelet Count 248 160 - 400 X10*3/uL [facility] Mean Platelet Volume 11.6 9.4 - 12.3 fL [facility] Neutrophils Percent Auto 51.1 45 - 73 % [facility] Imm Gran Pct Auto 0.4 0.0 - 0.4 % [facility] Lymphocytes Percent Auto 40.1(H) 20 - 40 % [facility] Monocytes Percent Auto 5.1 2 - 11 % [facility] Eosinophils Percent Auto 2.7 0 - 4 % [facility] Basophils Percent Auto 0.6 0 - 2 % [facility] NRBC Pct Auto 0.0 0.0 - 0.2 /100WBC [facility] Neutrophils Absolute Auto 5.6 2.0 - 8.3 x10*3/uL [facility] Imm Gran Abs Auto 0.04(H) 0.00 - 0.03 X10*3/uL [facility] Lymphocytes Absolute Auto 4.4 1.2 - 4.9 X10*3/uL [facility] Monocytes Absolute Auto 0.6 0.1 - 1.2 X10*3/uL [facility] Eosinophils Absolute Auto 0.3 0.0 - 0.4 X10*3/uL [facility] Basophils Absolute Auto 0.1 0.0 - 0.2 X10*3/uL [facility] NRBC Abs Auto 0.000 0.0 - 0.012 X10*3/uL [facility] Blood Venous blood specimen / Unknown 12/18/2024 7:09 AM EDT 12/18/2024 7:32 AM EDT us Clement Maynard MD LAB BLOOD ORDERABL ES Final Result [facility] [address] [place] [phone] * (ABNORMAL) Lipid Panel, Standard (12/18/2024 7:09 AM EDT) Triglycerides 188(H) <150 mg/dL [facility] Comment:Desirable Triglyceri de: less than 150 mg/dLBorderline High Triglyceride 150-199 mg/dLHigh Triglyceride: 200-499 mg/dLVery High Triglyceride: greater than or equal to 5OO mg/dL Cholesterol 124 <200 mg/dL [facility] Comment:Desirable Cholestero l: less than 200 mg/dLBorderline High Cholesterol: 200-239 mg/dLHigh Cholesterol: greater than 239 mg/dL LDL Cholesterol Calculated 40 <100 mg/dL [facility] Comment:Desirable LDL: less than 100 mg/dLNear Optimal/Above Optimal LDL: 110- 129 mg/dLBorderline High LDL: 130-159 mg/dLHigh LDL: 160-189 mg/dLVery High LDL: greater than or equal to 190 mg/dL HDL Cholesterol 47 >40 mg/dL [facility] Comment:Desirable HDL: great er than 40 mg/dL Note: This HDL assay may give artificially low results in patients with liver disease. Blood Venous blood specimen / Unknown 12/18/2024 7:09 AM EDT 12/18/2024 7:10 AM EDT Clement Maynard MD LAB BLOOD ORDERABL ES Final Result [facility] [address] [place] [phone] * (ABNORMAL) Comprehensive Metabolic Panel (12/18/2024 7:09 AM EDT) Sodium 139 135 - 145 mmol/L [facility] Potassium 5.1 3.3 - 5.1 mmol/L [facility] Comment:Slight Hemolysis.Int erpret result with caution. Chloride 105 96 - 108 mmol/L [facility] Carbon Dioxide 25 22 - 29 mmol/L [facility] Anion Gap 14 12 - 20 [facility] Urea Nitrogen (BUN) 15 9 - 16 mg/dL [facility] Creatinine, Serum 0.74 0.5 - 1.4 mg/dL [facility] Estimated Glomerular Filt Rate >60 [facility] Comment:Chronic Kidney Disea se: Estimated GFR < 60 mL/min/1.35h9Gaoggv Kidney Disease: Estimated GFR < 15 mL/min/1.73m2 Glucose 187(H) 60 - 115 mg/dL [facility] Calcium 9.8 8.4 - 10.2 mg/dL [facility] Bilirubin, Total 0.4 0.0 - 1.0 mg/dL [facility] Aspartate Amino Transferase 25 5 - 31 U/L [facility] Comment:Slight Hemolysis.Int erpret result with caution. Alanine Aminotransferase 24 0 - 31 U/L [facility] Total Protein 7.5 6.5 - 8.0 g/dL [facility] Albumin Level 4.4 3.5 - 5.0 g/dL [facility] Alkaline Phosphatase 70 39 - 117 U/L [facility] Blood Venous blood specimen / Unknown 12/18/2024 7:09 AM EDT 12/18/2024 7:10 AM EDT us Clement Maynard MD LAB BLOOD ORDERABL ES Final Result [facility] [address] [place] [phone] * (ABNORMAL) Albumin, Random Urine W/Creatinine (12/18/2024 7:07 AM EDT) Creatinine, Urine 80.03 mg/dL [facility] Microalbumin Urine 44.0 mg/L [facility] Microalbum Creatinine Ratio Ur 54.9(H) <30 ug/mg cr [facility] Comment:Albumin/Creatinine R atio Reference Ranges: Normal: < 30 ug/mg creatinine Microalbuminuria: 30 - 300 ug/mg creatinineClinical Albuminuria: > 300 ug/mg creatinine Urine (Urine, Random) 12/18/2024 7:07 AM EDT 12/18/2024 7:35 AM EDT Clement Maynard MD LAB URINE ORDERABL ES Final Result [facility] [address] [place] [phone] * (ABNORMAL) POCT HGB A1C (11/13/2024 2:10 PM EDT) Hemoglobin A1C 9.0(A) 4.0 - 6.0 % QC Media Lot # [id number] Lot# Expiration Date Blood 11/13/2024 2:10 PM EDT Clement Maynard MD POINT OF CARE TEST ENTER/EDIT ORDERABLES Final Result * POCT Glucose (11/13/2024 2:10 PM EDT) Pathologist [facility] Glucose Blood, POC 119 60 - 200 mg/dL QC Media Lot # [id number] Lot# Expiration Date 73,025 Blood Capillary blood specimen / Unknown 11/13/2024 2:10 PM EDT Clement Maynard MD POINT OF CARE TEST ENTER/EDIT ORDERABLES Final Result * HEPATITIS C ANTIBODY RFLX (12/19/2021 8:29 AM EDT) Pathologist [facility] Hepatitis C Antibody Nonreactive Nonreactive [facility] Comment: Antibodies to HCV not detected; does not exclude early acute HCV infection. 12/19/2021 8:29 AM EDT Clement Maynard MD HISTORICAL/NON ORD ERABLE LABS Final Result [facility] [address] * Hm Colonoscopy (11/09/2021 7:28 AM EDT) Historical Provider HEALTH MAINTENANCE Final Result * HPV mRNA E6/E7 (11/13/2019 3:54 PM EDT) HPV mRNA E6/E7 Not Detected NOT DETECTED [facility] Comment: This test was performed using the APTIMA(R) HPV Assay ([employer] This assay detects E6/E7 viral messenger RNA (mRNA) from 14 high-risk HPV types (16,18,31,33,35,39,45,51, 52,56,58,59,66,68). For additional information please refer to: http://education.Harimata/faq/PTX939w8 (This link is being provided for informational/ educational purposes only.) The analytical performance characteristics of this assay have been determined by [employer] [place], [place]. The modifications have not been cleared or approved by the FDA. This assay has been validated pursuant to the CLIA regulations and is used for clinical purposes. Test Performed by [facility], [facility], [address] [place] [address] Marc Swan M.D., Ph.D., Director of Laboratories , CLIA [id number] Please note: ??Effective 05/10/2016, HPV testing will be performed using [employer]'s APTIMA test which targets mRNA. Detecting mRNA instead of DNA, as in older methods, offers significant improvements in specificity. 11/13/2019 3:54 PM EDT Belle Smith CNM HISTORICAL/NON ORDERABLE LABS Final Result [facility] [address] * HIV AB/AG (10/19/2019 2:44 PM [...] detection of this assay. ?? [facility] Legal Assistant HIV Ag/Ab Combo assay result and supplemental assay results should be interpreted in conjunction with the patient's clinical presentation, history and other laboratory results. ??If the results are inconsistent with clinical evidence, additional testing is suggested to confirm the result. 10/19/2019 2:44 PM EST us Clement Maynard MD HISTORICAL/NON ORD ERABLE LABS Final Result [facility] [address] from Last 3 Months or Most Recently Relevant to Health Maintenance Insurance [place] [facility] [facility] * Guarantor: Lupe Woodruff Account Type Relation to Patient Date of Phone Billing Address Personal/Family Self [place] Care Teams Regional Account Manager Relationship Specialty Start Date End Date AceClement Johnson MD [address] [place] [phone] PCP - General Internal Medicine 10/19/19
--- OUTSIDE RECORDS SUMMARY | 2025-01-10 17:42 | XMS_ITS | Encounter Summary ---
Author Organization [employer] Address [address] [facility] [address] [place] [address] Care Team Providers Care Leaflet Or Newspaper Deliverer Name Role Phone Clement Lockhart MD Primary Care Prov ider Encounter Details Date Type Department Care Team (Latest Contact Info) Description 01/09/2025 2:45 PM EDT Office Visit [facility] OPTOMETRY [address] [place], [place] [phone] Atiya Duran, OD [address] [place] [address] Type 2 diabetes mellitus with both eyes affected by moderate nonproliferative retinopathy without macular edema, without long-term current use of insulin ([facility]) (Primary Dx); Presbyopia; Dry eyes, bilateral; Vitreomacular traction syndrome of left eye Social History Tobacco Use Types Packs/Day Years [...] AM EDT documented as of this encounter Progress Notes * Atiya Duran OD - 01/09/2025 2:45 PM EDT Eye Care Progress Note Patient ID: Lupe Woodruff is a 59 y.o. female. HPI Patient presents for diabetic eye exam. Patient's last A1c was 9.0% on 11/13/24. Patient did not check BSL today. Patient has driving and reading glasses. Patient is happy with vision through current specs (did not bring) Patient uses eyedrops qAM both eyes (OU), unsure which drops. Patient reports dryness worst in the AM. CHAMP: 2021, patient was told she had diabetic retinopathy at this time Last edited by Atiya Duran, DA on 01/09/2025 4:16 PM. Current Medications[1] Medical History[2] Surgical History[3] Family History[4] Tobacco Use: Low Risk (01/09/2025) Tobacco Smoking Tobacco Use: Never Smokeless Tobacco Use: Never Passive Exposure: Never Allergies[5] ROS Positive for: Eyes Negative for: Constitutional, Gastrointestinal, Neurological, Skin, Genitourinary, Musculoskeletal,HENT, Endocrine, Cardiovascular, Respiratory, Psychiatric, Allergic/Imm, Heme/Lymph Last edited by Atiya Duran, OD on 01/09/2025 3:16 PM. Base Eye Exam Visual Acuity (Snellen - Linear) Right Left Dist cc 20/20-2 20/20-2 Last Rx in phoropter Tonometry (Applanation, 2:41 PM) Right Left Pressure 21 21 Pupils Pupils APD Right PERRL None Left PERRL None Visual Gonzalez (Counting fingers) Left Right Full Full Extraocular Movement Right Left Full Full Neuro/Psych Oriented x3: Yes Mood/Affect: Normal Dilation Both eyes: 1.0% tropicamide @ 2:46 PM Slit Lamp and Fundus Exam External Exam Right Left External Normal Normal Slit Lamp Exam Right Left Lids/Lashes Clean and clear Clean and clear Conjunctiva/Sclera White and quiet White and quiet Cornea SPK inferior, TBUT 3 sec SPK inferior, TBUT 3 sec Anterior Chamber Deep and quiet, angles open gr 4 Deep and quiet, angles open gr 4 Iris Round and reactive, (-) NVI Round and reactive, (-) NVI Lens Clear Clear Fundus Exam Right Left Vitreous (+) PVD Clear Disc [place] and healthy, (-) NVD [place] and healthy, (-) NVD C/D Ratio Vertical 0.10 0.10 C/D Ratio Horizontal 0.10 0.10 Macula Flat with even pigmentation, (+) HMAs, (-) CME Flat with even pigmentation, (+) HMAs, (-) CME Vessels Normal course and caliber, (-) NVE Normal course and caliber, (-) NVE Periphery D/B hemes througout posterior pole, no holes/tears/detachments 360 D/B hemes througout posterior pole, blot heme superior Temporal periphery, no holes/tears/detachments 360 Refraction Wearing Rx Sphere Cylinder [place] Add Right -1.25 -0.50 062 +1.75 Left -0.75 -0.75 047 +1.75 Age: 3 years Last Rx from Fovea, pt did not bring to exam Manifest Refraction (Subjective) Sphere Cylinder [place] Dist [place] Add Right -1.00 -0.50 062 20/20 +2.50 Left -0.75 -0.75 047 20/25+2 +2.25 Near VA Both: 20/20 Final Rx Sphere Cylinder [place] Add Right -1.00 -0.50 062 +2.25 Left -0.75 -0.75 047 +2.25 Expiration Date: 01/09/2026 Comments: MF or multiple pairs ok Assessment and Plan Diagnoses and all orders for this visit: Type 2 diabetes mellitus with both eyes affected by moderate nonproliferative retinopathy without macular edema, without long-term current use of insulin ([facility]) - Patient educated on findings. - Discussed importance of tight blood glucose control, medication compliance and regular follow up with PCP. Today's exam notes will be made available for PCP to review. - RTC in 6 months for diabetic retinopathy f/u or sooner PRN Presbyopia - Dispensed updated spec Rx Dry eyes, bilateral - Recommended use of artificial tears 2-4x/day. Also recommended gel artificial tears at bedtime both eyes (OU). Patient given dry eye handout with drop options. Vitreomacular traction left eye (OS) - Patient advised to RTC if any changes in vision occur RTC in 6 months for dilated diabetic retinopathy f/u or sooner PRN Atiya Duran, OD 01/09/2025, 4:22 PM Gas Station Operator Source: _x_ None __ Bilingual Staff __ Qualified Staff Industrial Recruiter __ Telephone Gas Station Operator; ID# __ Gas Station Operator brought by patient (family member, friend, INSURANCE AGENCY SALES MANAGER, etc) __ In person sales correspondence clerk __ Ipad Gas Station Operator; ID#: Language Spoken During Exam: Kyrgyz [1] Current Outpatient Medications Medication Sig Dispense Refill cetirizine (ZyrTEC) 10 MG tablet Take 1 tablet (10 mg) by mouth in the morning. 10 tablet 0 empagliflozin (Jardiance) 25 MG Take 1 tablet (25 mg) by mouth in the morning. 90 tablet 3 glipiZIDE (Glucotrol) 10 MG tablet Take 1 tablet (10 mg) by mouth before breakfast and before evening meal. 180 tablet 3 hydroCHLOROthiazide (HYDRODiuril) 25 MG tablet Take 1 tablet (25 mg) by mouth Once per day. 90 tablet 3 losartan (Cozaar) 100 MG tablet Take 1 tablet (100 mg) by mouth in the morning. 30 tablet 11 metFORMIN (Glucophage) 1000 MG tablet Take 1 tablet (1,000 mg) by mouth with breakfast and with evening meal. 180 tablet 3 rosuvastatin (Crestor) 20 MG tablet Take 1 tablet (20 mg) by mouth Once per day. 90 tablet 3 triamcinolone (Kenalog) 0.1 % ointment Apply topically 2 times daily. 90 g 0 No current facility-administered medications for this visit. [2] History reviewed. No pertinent past medical history. [3] History reviewed. No pertinent surgical history. [4] Family History Problem Relation Name Age of Onset Diabetes Mother [5] Allergies Allergen Reactions Shellfish-Derived Products documented in this encounter Plan of Treatment Upcoming Encounters Date Type Department Care Team (Late st Contact Info) Description 01/24/2025 3:00 PM EDT Medication Management [facility] PEDS [address] [place], [place] [phone] Niyah Douglas, PharmD [address] [place], [place] [phone] 03/26/2025 3:15 PM EDT Telemedicine [facility] [address] [place], [place] [phone] AceClement Johnson MD [address] [place], [place] [phone] documented as of this encounter Procedures Procedure Name Priority Date/Time Associated Diagnosis Comments OCT, RETINA - OU - BOTH EYES Routine 01/09/2025 4:21 PM EDT Type 2 diabetes mellitus with both eyes affected by moderate nonproliferative retinopathy without macular edema, without long-term current use of insulin ([facility]) Vitreomacular traction syndrome of left eye documented in this encounter Results * OCT, Retina - OU - [...] Atiya Duran OD OPHTH TOMOGRAPHY Final Result documented in this encounter Visit Diagnoses Diagnosis Type 2 diabetes mellitus with both eyes affected by moderate nonproliferative retinopathy without macular edema, without long-term current use of insulin ([facility])- Primary Presbyopia Dry eyes, bilateral Vitreomacular traction syndrome of left eye documented in this encounter Additional Health Concerns Assessment Noted Time PHQ-9 Depression Total Score: 0 11/14/19 25 2:03 PM EDT documented as of this encounter Care Teams Leaflet Or Newspaper Deliverer Relationship Specialty Start Date End Date Clement Lockhart MD [address] [place] [phone] PCP - General Internal Medicine 10/19/19 documented as of this encounter
--- OUTSIDE RECORDS SUMMARY | 2025-01-10 17:42 | XMS_ITS | Encounter Summary ---
Author Organization [employer] Address [address] [place] [address] Care Team Providers Care Cook Pickled Meat Name Role Phone Clement Lockhart MD Primary Care Prov ider Encounter Details Date Type Department Care Team (Latest Contact Info) Description 01/09/2025 Travel Social History Tobacco Use Types Packs/Day Years [...] Description 01/24/2025 3:00 PM EDT Medication Management [facility] [address] [place] [address] Niyah Douglas, PharmD [address] [place] [address] 03/26/2025 3:15 PM EDT Telemedicine [facility] [address] [place] [address] Clement Lockhart MD [address] [place] [address] documented as of this encounter Visit Diagnoses Not on filedocumented in this encounter Additional Health Concerns Assessment Noted Time PHQ-9 Depression Total Score: 0 11/14/19 25 2:03 PM EDT documented as of this encounter Care Teams Cook Pickled Meat Relationship Specialty Start Date End Date Clement Lockhart MD [address] [place] [address] PCP - General Internal Medicine 10/19/19 documented as of this encounter
--- OUTSIDE RECORDS SUMMARY | 2025-01-10 17:42 | XMS_ITS | Encounter Summary ---
Author Organization [employer] Address [address] [facility] [address]t [place] [address] Care Team Providers Care Software Configuration Manager Name Role Phone Clement Lockhart MD Primary Care Prov ider Encounter Details Date Type Department Care Team (Late st Contact Info) Description 01/05/2024 Orders Only [facility] MED [facility] PEDS [address] [place] [address] Clement Lockhart MD [address] [place] [address] Social History Tobacco Use Types Packs/Day Years [...] 3:00 PM EDT Medication Management [facility] [address] [place] [address] Niyah Douglas, PharmD [address] [place] [address] 03/26/2025 3:15 PM EDT Telemedicine [facility] [address] [place] [address] Clement Lockhart MD [address] [place] [address] documented as of this encounter Visit Diagnoses Not on filedocumented in this encounter Additional Health Concerns Assessment Noted Time PHQ-9 Depression Total Score: 0 09/05/19 24 3:55 PM EST documented as of this encounter Care Teams Software Configuration Manager Relationship Specialty Start Date End Date Clement Lockhart MD [address] [place] [address] PCP - General Internal Medicine 10/19/19 documented as of this encounter
--- OUTSIDE RECORDS SUMMARY | 2025-01-10 17:42 | XMS_ITS | Encounter Summary ---
Author Organization [employer] Address [address] [place] [address] Care Team Providers Care Caster Operator Name Role Phone Clement Lockhart MD Primary Care Prov ider Encounter Details Date Type Department Care Team (Late st Contact Info) Description 12/15/2023 Orders Only [facility] [address] [place] [address] ProviderRadha MD Social History Tobacco Use Types [...] 3:00 PM EDT Medication Management [facility] [address] [place] [address] Niyah Douglas, PharmD [address] [place] [address] 03/26/2025 3:15 PM EDT Telemedicine [facility] [address] [place] [address] Clement Lockhart MD [address] [place] [address] documented as of this encounter Procedures Procedure [...] documented as of this encounter Care Teams Caster Operator Relationship Specialty Start Date End Date Clement Lockhart MD [address] [place] [address] PCP - General Internal Medicine 10/19/19 documented as of this encounter
--- OUTSIDE RECORDS SUMMARY | 2025-01-10 17:42 | XMS_ITS | Encounter Summary ---
Author Organization [employer] Address [address] [facility] [address] [place] [address] Care Team Providers Care Industrial Technologist Name Role Phone Clement Lockhart MD Primary Care Prov ider Reason for Visit * Reason Comments Well woman exam Encounter Details Date Type Department Care Team (Latest Contact Info) Description 01/10/2025 1:00 PM EDT Procedure Visit [facility]EDS [address] [place] [address] Liliam Penny MD [address] [place] [address] Encounter for immunization (Primary Dx); Cervical cancer screening Social History Tobacco Use Types Packs/Day Years [...] your housing situation today? I have die[place] sing 11/13/[address] you li [...] AM EDT documented as of this encounter Last Filed Vital Signs Vital Sign Reading [...] Mass Index 36.1 01/10/2025 12:54 PM EDT documented in this encounter Miscellaneous Notes * Assessment & Plan Note - Liliam Penny MD - 01/10/2025 1:24 PM EDT Associated Problem(s): Cervical cancer screening 59 y.o. here for cervical cancer screening. Will continue monitoring following ASCCP guidelines. documented in this encounter Plan of Treatment Upcoming Encounters Date Type Department Care Team (Late st Contact Info) Description 01/24/2025 3:00 PM EDT Medication Management [facility] [address] [place] [address] Niyah Douglas, PharmD [address] [place] [address] 03/26/2025 3:15 PM EDT Telemedicine [facility] [address] [place] [address] Clement Lockhart MD [address] [place] [address] Scheduled Orders Name Type Priority Associated Diagnoses Orde r Schedule Pap Smear Pathology and Cytology Routine Cervical cancer screening Ordered: 01/10/2025 HPV High Risk with Reflex to Subtypes Lab Routine Cervical cancer screening Ordered: 01/10/2025 documented as of this encounter Visit Diagnoses Diagnosis Encounter for immunization- Primary Cervical cancer screening Screening for malignant neoplasm of the cervix documented in this encounter Additional Health Concerns Assessment Noted Time PHQ-9 Depression Total Score: 0 11/14/19 25 2:03 PM EDT documented as of this encounter Care Teams Industrial Technologist Relationship Specialty Start Date End Date Clement Lockhart MD [address] [place] [address] PCP - General Internal Medicine 10/19/19 documented as of this encounter
--- OUTSIDE RECORDS SUMMARY | 2025-01-10 17:42 | XMS_ITS | Encounter Summary ---
Author Organization [employer] Address [address] [facility] [address] [place] [address] Care Team Providers Care Procurement Services Manager Name Role Phone Clement Lockhart MD Primary Care Prov ider Encounter Details Date Type Department Care Team (Latest Contact Info) Description 01/10/2025 Travel Social History Tobacco Use Types Packs/Day [...] Description 01/24/2025 3:00 PM EDT Medication Management [facility]ED[facility] [address] [place] [address] Niyah Douglas, PharmD [address] [place] [address] 03/26/2025 3:15 PM EDT Telemedicine [facility] [address] [place] [address] Clement Lockhart MD [address] [place] [address] documented as of this encounter Visit Diagnoses Not on filedocumented in this encounter Additional Health Concerns Assessment Noted Time PHQ-9 Depression Total Score: 0 11/14/19 25 2:03 PM EDT documented as of this encounter Care Teams Procurement Services Manager Relationship Specialty Start Date End Date Clement Lokchart MD [address] [place] [address] PCP - General Internal Medicine 10/19/19 documented as of this encounter
[2025-01-16 15:16] LABS: HPV Genotype 16 Negative (Negative); HPV Genotype 18 Negative (Negative); HPV High Risk Positive (Negative)
== END 2025-01-10 17:40 | disposition home or self-care (01) ==
LOC: HO.HHCLNP 17:39
PROVIDERS: Visit Provider Family Medicine
DX: Z12.4 Encounter for screening for malignant neoplasm of cervix (principal)
CPT/HCPCS: 87626; 88175